=== PATIENT | female | born 1980 | race Caucasian/White ===

== ENCOUNTER 2024-05-29 15:25 | Emergency (ER) | payer OTHER, SELFPAY ==
[2024-05-29] VITALS (36 sets, daily range): BP systolic 93–124; BP diastolic 32–87; PULSE 72–98; RESP 14–18; TEMP 37.3; O2SAT 93–97
[2024-05-29] MEDS: Acetaminophen 500 MG TAB 1000 MG PO (16:09)
[2024-05-29] MEDS: Dexamethasone 10 MG/ML VIAL IVP (16:09)
[2024-05-29] MEDS: Diclofenac 1% Gel 100 GM TUBE TP (16:10)
[2024-05-29] MEDS: Cyclobenzaprine 10 MG TAB PO (16:10)
--- OUTSIDE RECORDS SUMMARY | 2024-05-29 16:19 | XMS_ITS | Clinical Summary ---
Author Organization [facility] Address [address] [place] [address] Care Team Providers Care Accountant Helper Name Role Phone Santosh Celis MD Primary Care Provider [phone] Allergies No known active allergies Medications No known medications Active Problems Problem Noted Date Diagnosed Date Joint pain, knee 10/20/2014 Immunizations Name Administration Dates Next Due INFLUENZA, SPLIT VIRUS, TRIVALENT, PF 03/06/2011 Family History Medical History Relation Name Comments No Known Problems Child No Known Problems Cousin No Known Problems Daughter No Known Problems Father No Known Problems Grandchild No Known Problems Maternal Grandfather Breast cancer Maternal Grandmother Breast cancer Mother invasive ducta l, sentinal 1/3 nodes +, ER+/MA+; BRCA negative Other Mother Family History of hypertension Breast cancer Mother's Sister No Known Problems Other No Known Problems Paternal Grandfather No Known Problems Paternal Grandmother No Known Problems Sister No Known Problems Son BRCA 1/2 Neg Hx Colon cancer Neg Hx Endometrial cancer Neg Hx Ovarian cancer Neg Hx Relation Name Status Comments Child Cousin Daughter Father Grandchild Maternal Grandfather Maternal Grandmother Mother Mother's Sister Other Paternal Grandfather Paternal Grandmother Sister Son Social History Tobacco Use Types Packs/Day Years Used Date Smoking Tobacco: Never Smokeless Tobacco: Never Comments:: Alcohol Use Standard Drinks/Week Comments Yes 0 (1 standard drink = 0.6 oz pur e alcohol) Comments No Sex and Gender Information Value Date Recorded Sex Assigned at Not on file Legal Sex Female 1:49 AM EDT Gender Identity Not on file Sexual Orientation Not on file 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 Not on file Last Filed Vital Signs Vital Sign Reading Time Taken Comments Blood Pressure 126/88 03/08/2019 8:44 AM EDT Pulse 98 12/10/2011 2:47 PM EDT Temperature - - Respiratory Rate - - Oxygen Saturation - - Inhaled Oxygen Concentration - - Weight 59.4 kg (131 lb) 03/08/2019 8:44 AM EDT Height 165.7 cm (5' 5.25) 03/08/2019 8:44 AM ED T Body Mass Index 21.63 03/08/2019 8:44 AM EDT Plan of Treatment Upcoming Encounters Date Type Department Care Team (Late st Contact Info) Description 07/13/2024 2:15 PM EST 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 [address] [place] [address] Frieda Jeff MD [address] [place] [phone] 03/09/2025 2:30 PM EDT Appointment [facility] Mammography [address] [place] [address] Health Maintenance Due Date Last Done Comments HIV Screening 1981 Hepatitis C Screening 1981 Varicella Vaccines (1 of 2 - 13+ 2-dose series) 1994 Hepatitis B Vaccines (1 of 3 - 19+ 3-dose series) 2000 Pap Smear 07/10/2019 07/10/2016, 08/2013, 04/14/2013, Additional history exists Cervical Cancer Screening 07/10/2021 HPV and Pap Smear 07/10/2021 07/10/2016, , 04/14/2013, Additional history exists Alcohol/Substance Use Screening 06/01/2023 Depression Screening and Follow-Up 06/01/2023 Social Drivers of Health Annual Screening 06/01/2023 COVID-19 Vaccine ( season) 2024 03/22/2022, 04/05/2021, 07/04/2020, Additional history exists Influenza Vaccine (#1) 2024 7, 04/17/2015, 03/06/2011, Additional history exists DTaP,Tdap,and Td Vaccines (4 - Td or Tdap) 03/30/2025 03/30/2015, 05/08/2009, 12/31/1999 Mammogram 03/07/2026 03/07/2024, 02/01, 02/22/2022 RSV Vaccine (60+ years old and patients) (1 - 1-dose 75+ series) 2056 Pneumococcal Vaccine: Pediatric (0-5 Years) and At-Risk Patients (6-64 Years) Aged Out No longer eligible based on patient's age to complete this topic Procedures * Due to [place] law, this organization might not be sharing negative HIV tests. Procedure Name Priority Date/Time Associated Diagnosis Comments TORIBIO BILATERAL SCREENING DIGITAL MAMMOGRAM WITH JASON Routine 03/07/2024 2:33 PM EDT Encounter for screening mammogram for malignant neoplasm of breast [facility] PAP W/HPV, MRNA E6/E7, REFLEX 16/18/45 Routine 07/10/2016 12:00 AM EST from Last 3 Months or Most Recently Relevant to Health Maintenance Results * Due to [place] law, this organization might not be sharing negative HIV tests. * TORIBIO Bilateral Screening Digital Mammogram With Jason (03/07/2024 2:33 PM EDT) Anatomical Region Laterality Modality Breast Bilateral Mammography Narrative 03/15/2024 11:08 AM EDT Exam Date: 03/07/24 [facility] MAMMOGRAPHY [address] [place] [address] [id number] EXAMINATION TORIBIO Bilateral Screening Digital Mammogram With Jason. INDICATION Crystal Karol Tomlin is a 43 y.o. female and is seen for: TORIBIO Bilateral Screening Digital Mammogram With Jason. CC and MLO views were obtained. FDA approved Transpara?? AI (artificial intelligence) software and R2 CAD were used as a concurrent reading aid in the interpretation of this study. COMPARISON Compared to: 02/28/2023 TORIBIO Bilateral Screening Digital Mammogram With Jason and 02/22/2022 TORIBIO Bilateral Screening Digital Mammogram With Jason Bilateral Breast Findings: The breasts are extremely dense, which lowers the sensitivity of mammography. No significant masses, calcifications or other abnormalities are seen. IMPRESSION BI-RADS?? ATLAS category (overall): 1 - Negative MANAGEMENT Routine Screening Mammogram in 1 Year is recommended for bilateral. ??The patient was entered into a reminder system with a subsequent mammography target date. The patient? s lifetime risk for breast cancer was calculated using Dmer-Amaliazick: 36.09%. which is high If the personal lifetime risk is more than 20%, according to ACS, NCCN and ACR guidelines, annual screening breast MRI recommended in addition to annual mammography, ideally staggered in 6 months intervals. Breast MRI is available at [facility] ([facility], [facility], and [facility]). To schedule, enter a breast MRI order into [facility] (MRI Breast Bilateral W WO contrast and 3DCAD), call [phone] or [phone], or fax [phone]. If this radiology report contains a blank impression section, it is an incomplete radiology report. ??Please contact the interpreting radiologist or applicable radiology division as soon as possible to obtain the completed interpretation. Angela Alcantara MD us Frieda Jeff MD IMG BI PROCEDURES Final Resu lt * [facility] Pap w/HPV, mRNA E6/E7, Reflex 16/18/45 (07/10/2016 12:00 AM EST) [facility] TIS, mRNA E6/E7 Juanita (See Below) [employer] Comment: TIS,mRNA E6/E7 JUANITA ?? CLINICAL INFORMATION: ? Routine exam ?? LMP: ? 06/18/16 ?? PREV. PAP: ? 2014- ?? PREV. BX: ? NONE GIVEN ?? SOURCE: ? Cervix, Endocervix ?? STATEMENT OF ADEQUACY: ? Satisfactory for evaluation. ? Endocervical/transformation zone component ? present. ?? INTERPRETATION/RESULT: ? Negative for intraepithelial lesion or malignancy. ?? COMMENT: ? This Pap test has been evaluated with computer ? assisted technology. ?? REFERENCE TEST CLERK: ? MAA, CT(ASCP) ? CT screening location: [facility] ? [address] ? [place], [place] ??[address] ?? HPV mRNA E6/E7: ? Not Detected ? This test was performed using the APTIMA HPV Assay ([employer].). ? . ? This assay detects E6/E7 viral messenger RNA (mRNA) from 14 ? high-risk HPV types (16,18,31,33,35,39,45,51,52,56,58,59,66,68). Report Comments: ?? Received Date: [id number] Performing Site: [facility] ?? bttn [facility] ?? [address] [place], [place] ??[address] ?? Director: LELSEE LAU 07/10/2016 12:0 0 AM EST 07/11/2016 10:21 PM EST Frieda Jeff MD LAB [facility]BULAT[facility] SANDHYA HERNANDEZ Final Result bttn [address], [place] [address], [place] [phone] from Last 3 Months or Most Recently Relevant to Health Maintenance Insurance [facility] Advance Directives Documents on File Type Date Recorded Patient Barrel Rifler Broach Expl anation Advance Directive 09/02/2011 12:00 AM Advan ce Care Directives Advance Directive 09/02/2011 12:00 AM Advan ce Care Directives Care Teams Accountant Helper Relationship Specialty Start Date End Date Santosh Celis MD PCP - General 12/18/16
--- OUTSIDE RECORDS SUMMARY | 2024-05-29 16:19 | XMS_ITS | Encounter Summary ---
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 [address] [place] [phone] Marlyn Aguirre CCMA Prior Authorization (ABUS) Social History Tobacco Use Types Packs/Day Years Used Date Smoking Tobacco: Never Smokeless Tobacco: Never Comments:: Alcohol Use Standard Drinks/Week Comments Yes 0 (1 standard drink = 0.6 oz pur e alcohol) Comments Unknown Sex and Gender Information Value Date Recorded Sex Assigned at Not on file Legal Sex Female 1:49 AM EDT Gender Identity Not on file Sexual Orientation Not on file 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 She stated no prior authorization is required. Goes towards deductible then covered 100% at the contracted rate. Copayment of $150.00 Reference #: [id number] Left message for patient to call back on 03/03/22 * Telephone Encounter - GAUTAM Andrade - 03/11/2022 10:57 AM EDT ----- Message from Frieda Jeff MD sent at 03/02/2022 4:02 PM EDT ----- Dense breasts by mammo--pls offer ABUS. Check insurance for coverage and let pt know. Book if she would like to pursue. Thank you. 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
--- OUTSIDE RECORDS SUMMARY | 2024-05-29 16:19 | XMS_ITS | Encounter Summary ---
Author Organization [facility] lin Address [address] [place] [address] Care Team Providers Care Dinkey Operator Slag Name Role Phone Unavailable Primary Care Provider Unavailabl e Reason for Visit * Reason Comments Mouth or throat complaint Encounter Details Date Type Department Care Team (Latest Contact Info) Description 09/08/2022 6:00 PM EDT Office Visit [id number] [place] [phone] Jane Cabrera NP [address] [place] [phone] Streptococcal sore throat (Primary Dx) Social History Tobacco Use Types Packs/Day Years Used Date Smoking Tobacco: Never Passive Smoke Exposure: Never Smokeless Tobacco: Never Tobacco Cessation:Counseling Given: Yes Comments No Sex and Gender Information Value Date Recorded Sex Assigned at Not on file Legal Sex Female 8:47 AM EDT Gender Identity Not on file Sexual Orientation Not on file documented as of this encounter Last Filed Vital Signs Vital Sign Reading Time Taken Comments Blood Pressure 106/68 09/08/2022 5:54 PM EDT Pulse 96 09/08/2022 5:54 PM EDT Temperature 36.9 ??C (98.4 ??F) 09/08/2022 5:54 PM ED T Respiratory Rate 14 09/08/2022 5:54 PM EDT Oxygen Saturation 100% 09/08/2022 5:54 PM EDT Inhaled Oxygen Concentration - - Weight - - Height - - Body Mass Index - - documented in this encounter Functional Status * Is the person deaf or does he/she have serious difficulty hearing? Answer Date of Assessment Author * Is this person blind or does he/she have serious difficulty seeing even when wearing glasses? Answer Date of Assessment Author * Does this person have serious difficulty walking or climbing stairs? Answer Date of Assessment Author * Does this person have difficulty dressing or bathing? Answer Date of Assessment Author * Because of a physical, mental, or emotional condition, does this person have difficulty doing errands alone such as visiting a doctor's office or shopping? Answer Date of Assessment Author documented as of this encounter Mental Status * Because of a physical, mental, or emotional condition, does this person have serious difficulty concentrating, remembering, or making decisions? Answer Entry Date Author documented in this encounter Patient Instructions * Patient Instructions* Jane Cabrera NP - 09/08/2022 6:00 PM EDT ACETAMINOPHEN Example Brand Names: Tylenol, Aspirin Free Anacin. Liquiprin, Panadol, Feverall, Tempra Uses: Relieve pain; reduce fever How to Take this Drug: ??? Do not use a household spoon. Measure liquid medication with the provided dose-measuring spoon,dropper or cup. ??? When used for pain, take it at the first sign of pain. Do not wait for pain to worsen. ??? This drug may be taken with food or on an empty stomach. ??? In order to decrease the risk of liver damage, avoid alcoholic beverages while taking acetaminophen. Safety Information on Dosing: ??? Dosing recommendations may vary by product. Always follow the instructions on the package for the correct dose. ??? The recommended maximum dose for an adult without liver problems is 3000 mg in a 24-hour period. ??? Do not give a child more than 5 of the recommended doses in a 24-hour period. ??? Do not take more than the recommended dose. o Acetaminophen is an ingredient in many pain relievers, fever reducers, and cold and sinus products. o Check the labels of all your medicines to avoid taking more than the recommended amount of acetaminophen per dose or per day. Side Effects: Rare. The most serious side effects are allergic reaction (rash, itching, swelling, severe dizziness, trouble breathing) and liver damage (yellowing of the skin or eyes, nausea, abdominal pain or discomfort, unusual bleeding or bruising, severe fatigue). Stop taking the medicine immediately, if you have any of these side effects. Call your primary careprovider. When to Call Your Primary Care Provider: ??? If you are taking this medicine for pain and the pain lasts more than 10 days (more than 5 daysin a child) ??? If you are taking this medicine for fever and fever lasts longer than 3 days. ??? Pain or fever gets worse while taking this medicine. ??? You have new symptoms. ??? You have signs or symptoms of a serious side effect. [facility] recommends that you keep this and all medications out of reach of children. Carefully read all package information to ensure the safest and most effective use of this medicine. IBUPROFEN Example Brand Names: Advil, Motrin, Nuprin, Pediacare Fever Uses: Relieve pain; reduce fever How to Take this Drug: ??? Measure liquid medication with the provided dose-measuring spoon, dropper or cup. Do not use a household spoon. ??? When used for pain, take it at the first sign of pain. Do not wait for pain to get worse. ??? Take this medicine with food or milk to avoid stomach upset. ??? Do not lie down for 30 minutes after taking the medicine to avoid heartburn. ??? Avoid the use of alcohol or tobacco to reduce the risk for stomach bleeding. ??? Ibuprofen can make you more sensitive to the sun and result in sunburn. Avoid staying in the sun for a long time, tanning booths or sunlamps. Wear sunscreen and protective clothing when outside. Safety Information on Dosing: ??? Dosing recommendations may vary by product. Always follow the instructions on the package for the correct dose. ??? ADULTS 18 years and older: The recommended maximum total dose in 24 hours is no more than 2400mg a day. ??? CHILDREN ages 12 to 17: Do not give more than 4 of the recommended doses in a 24-hour period. The recommended maximum dose in 24 hours is no more than 1200 mg a day. ??? Do not take more than is recommended dose. o Ibuprofen is in many pain relievers, fever reducers, menstrual symptom medication, cold and sinusproducts. o Check the labels of all the medicines. The amount of ibuprofen in these products must be includedwhen looking at the maximum dose per day. ??? Avoid aspirin, aspirin-containing products, other pain medicines, garlic, ginseng, ginkgo, vitamin E to reduce risk of bleeding. ??? If you take low-dose aspirin for heart protection or stroke prevention, take ibuprofen 30 minutes to 2 hrs after taking the aspirin. ??? Avoid driving and other activities that require you to be alert until you see if this medicine makes you dizzy or drowsy. Side Effects: ??? Common side effects: stomach upset, nausea, diarrhea, constipation, heartburn, rash, sun sensitivity, water retention ??? Serious side effects: allergic reaction (rash, itching, swelling, severe dizziness, trouble breathing), liver damage (yellowing of the skin or eyes, dark-colored urine, nausea, abdominal pain or discomfort, unusual bleeding or bruising, severe fatigue), easy bleeding (bruising, pinpoint red spots on the skin, black tarry stools, blood in the urine, unusual tiredness or weakness), severe stomach or intestinal bleeding (bloody or black tarry stools, vomiting blood, vomit contains dark specks that look like coffee grounds), and decreased hearing or ringing in the ears ??? People who take ibuprofen may have a higher risk of having a heart attack or stroke than peoplewho do not take these medications. This risk may be higher for people who take this medication for long periods of time. Call 911 and get emergency medical help right away if you experience chest pain, shortness of breath, weakness in one part or side of the body, or slurred speech. ??? Stop taking the medicine immediately, if you have any of these side effects. Call your primary care provider. When to Follow Up with Your Primary Care Provider: ??? If you are taking this medicine for pain and the pain gets worse or pain lasts more than 10 days (more than 5 days in a child) ??? If you are taking this medicine for fever and fever lasts longer than 3 days or gets worse. ??? You develop new symptoms or have signs or symptoms of a serious side effect. [facility] recommends that you keep this and all medications out of reach of children. Carefully read all package information to ensure the safest and most effective use of this medicine. NOTE: This sheet is a summary. It may not cover all possible information. If you have questions about this medicine, talk to your doctor, pharmacist, or health care provider. Seek immediate emergency medical attention if you experience severe or worsening abdominal pain, difficulty swallowing, stiff neck, shortness of breath, coughing or vomiting up blood, chest pain, increased fever, unexplained weight loss, or blood in stool. Follow up with Primary Care Provider immediately if symptoms worsen or mouth pain interferes with the ability to eat or drink. Follow up with Primary Care Provider if symptoms not improved in 3-4 days or sore throat persists after completion of antibiotic. Strep Throat Seek Immediate Medical Attention If You: ??? If your throat is so swollen you are having difficulty breathing or cannot swallow fluids ??? Get a very bad headache ??? Your neck hurts or it feels stiff Strep Throat Facts What is Strep Throat? Strep throat is an infection of the throat caused by a bacterium called streptococci. Strep throat spreads from person to person through coughing, sneezing or close contact. Prevention: Most people exposed to strep throat do not become sick unless they have had close contact with an infected person. To reduce the risk of infection: ??? Wash your hands frequently and thoroughly, especially before eating. ??? Avoid sharing cups, eating utensils and toothbrushes ??? Limit close contact with people who have symptoms of strep throat Treatment: Antibiotics are used to kill strep bacteria. This helps prevent spreading the bacteria to others and it also helps to prevent rare, but serious complications such as rheumatic fever or kidney inflammation. ??? Be sure to finish all antibiotic medication even if you feel better. ??? Rinse your mouth with salt water mixture 3-4 times a day (1/2 teaspoon of salt in 1 cup warm water). This can help to reduce the swelling that causes your throat pain ??? Rest ??? Don???t smoke ??? Stay home from school or work until you have been taking antibiotics for 24 hours ??? Drink enough water to keep your pee (urine) clear or pale yellow and eat soothing foods to avoid throat irritation ??? Change your toothbrush after being on antibiotics for 24 hours. Return if: ??? Your neck keeps getting bigger or red and tender ??? You get a rash, cough or earache ??? You cough up thick liquid that is green, yellow-brown or bloody ??? You have pain that does not get better with medicine ??? Your problems get worse instead of better ??? You have a continued fever ??? Your joints are red or they hurt documented in this encounter Progress Notes * Jane Cabrera NP - 09/08/2022 6:00 PM EDT Subjective: Patient ID: Fátima Tomlin is a 41 y.o. female. HPI Present presents with a sore throat that began on 09/07/2022. Mouth or throat complaint Patient presents with: sore throat Location: Posterior mouth Quality: Aching and sore Onset Quality: Gradual Severity: Moderate (6/10 throat pain) Duration of current symptoms: 1 day Timing: Gradually worsening Chronicity: New Associated symptoms: sore throat Associated symptoms: no abdominal pain, no chest pain, no chills, no cough, no fatigue, no facial swelling, no trouble swallowing, no drooling, no muffled voice, no night sweats, no shortness of breath, no neck stiffness, no headache, no difficulty sticking tongue out, no congestion, no decreased appetite, no dental sensitivity to temperature, no ear pain, no fever, no neck pain, no rash, no rhinorrhea and no swollen glands Review of Systems Constitutional: Negative. Negative for chills, decreased appetite, fatigue, fever and night sweats. HENT: Positive for sore throat. Negative for congestion, drooling, ear pain, facial swelling, rhinorrhea, trouble swallowing and voice change. Eyes: Negative. Respiratory: Negative. Negative for cough and shortness of breath. Cardiovascular: Negative. Negative for chest pain. Gastrointestinal: Negative. Negative for abdominal pain. Endocrine: Negative. Genitourinary: Negative. Musculoskeletal: Negative. Negative for neck pain and neck stiffness. Skin: Negative. Negative for rash. Allergic/Immunologic: Negative. Neurological: Negative. Hematological: Negative. Psychiatric/Behavioral: Negative. All other systems reviewed and are negative. Social History Tobacco Use Smoking Status Never ??? Passive exposure: Never Smokeless Tobacco Never History reviewed. No pertinent past medical history. Past Surgical History: Procedure Laterality Date ??? ADENOIDECTOMY ??? KNEE SURGERY Left ??? SHOULDER SURGERY Left No family history on file. Objective: Physical Exam Vitals reviewed. Constitutional: General: She is not in acute distress. Appearance: Normal appearance. She is well-developed. Interventions: She is not intubated. HENT: Head: Normocephalic. Right Ear: Hearing, tympanic membrane, ear canal and external ear normal. Left Ear: Hearing, tympanic membrane, ear canal and external ear normal. Nose: Nose normal. No nasal deformity, septal deviation, signs of injury, laceration, nasal tenderness, mucosal edema, congestion or rhinorrhea. Right Nostril: No foreign body, epistaxis, septal hematoma or occlusion. Left Nostril: No foreign body, epistaxis, septal hematoma or occlusion. Right Turbinates: Not enlarged, swollen or pale. Left Turbinates: Not enlarged, swollen or pale. Right Sinus: No maxillary sinus tenderness or frontal sinus tenderness. Left Sinus: No maxillary sinus tenderness or frontal sinus tenderness. Mouth/Throat: Lips: [place]. Mouth: Mucous membranes are moist. Pharynx: Uvula midline. Oropharyngeal exudate and posterior oropharyngeal erythema present. No pharyngeal swelling or uvula swelling. Tonsils: Tonsillar exudate present. No tonsillar abscesses. 2+ on the right. 2+ on the left. Eyes: General: Right eye: No discharge. Left eye: No discharge. Conjunctiva/sclera: Conjunctivae normal. Cardiovascular: Rate and Rhythm: Normal rate and regular rhythm. No extrasystoles are present. Chest Wall: PMI is not displaced. No thrill. Pulses: No decreased pulses. Heart sounds: Normal heart sounds. Heart sounds not distant. No murmur heard. No systolic murmur is present. No diastolic murmur is present. No friction rub. No gallop. No S3 or S4 sounds. Pulmonary: Effort: Pulmonary effort is normal. No tachypnea, bradypnea, accessory muscle usage, prolonged expiration, respiratory distress or retractions. She is not intubated. Breath sounds: Normal breath sounds and air entry. No stridor, decreased air movement or transmitted upper airway sounds. No decreased breath sounds, wheezing, rhonchi or rales. Musculoskeletal: Cervical back: Normal range of motion and neck supple. Right lower leg: No edema. Left lower leg: No edema. Lymphadenopathy: Cervical: Cervical adenopathy present. Neurological: General: No focal deficit present. Mental Status: She is alert and oriented to person, place, and time. Mental status is at baseline. Psychiatric: Behavior: Behavior normal. Thought Content: Thought content normal. Judgment: Judgment normal. Assessment/Plan: Based off of the patient's presentation, she was treated for strep throat today, despite a negativestrep test. Based on today's visit:history, physical exam and all relevant testing completed in clinic today patient's visit diagnosis is/includes 1. Streptococcal sore throat Patient does not have a history of chronic conditions identified today Treatment plan includes: Orders Placed: Orders Placed This Encounter Procedures ??? Strep Molecular POCT Medications ordered this visit Signed Prescriptions Disp Refills ??? acetaminophen 325 mg cap 30 capsule 0 Sig: Take 1-2 capsules by mouth 4 (four) times a day for 7 days Max 12 capsules in 24 hours. ??? ibuprofen (ADVIL) 200 MG tablet 30 tablet 0 Sig: Take 1 tablet (200 mg total) by mouth every 6 (six) hours as needed for moderate pain or feverfor up to 7 days ??? penicillin v potassium (VEETID) 500 MG tablet 20 tablet 0 Sig: Take 1 tablet (500 mg total) by mouth 2 (two) times a day for 10 days Current medication list and any new medications prescribed or recommended today were reviewed with the patient and specific instructions were provided Yes Provider Recommendations Recommended drinking warm tea with honey and gargling with warm salt water. If there is no improvement in your symptoms, please follow-up with your primary care physician. Follow up care instructions were provided to the Patient. All questions answered. Patient verbalized understanding of plan of care today. HPI Section HPI provided by Patient I am having Crystal Tomlin start on acetaminophen, ibuprofen, and penicillin v potassium. documented in this encounter Plan of Treatment Not on file documented as of this encounter Procedures Procedure Name Priority Date/Time Associated Diagnosis Comments STREP MOLECULAR POCT Routine 09/08/2022 6:01 PM EDT Streptococcal sore throat documented in this encounter Results * Strep Molecular POCT (09/08/2022 6:01 PM EDT) Pathologist [facility] POC MOLECULAR STREP A Negative Negative, Invalid, Not Tested, ERRONEOUS JESUS ACEVEDO [id number] INTERNAL CONTROLS VALID Yes--Test working appropriately JESUS ACEVEDO [id number] Expiration Date 04/18/2024 JESUS ACEVEDO [id number] Lot Number [id number] JESUS ACEVEDO [id number] TEST BRAND NAME_ STREP MOLECULAR ID Now Strep JESUS ACEVEDO [id number] Throat 09/08/2022 6:01 PM EDT us Jane Cabrera NP POINT OF CARE TEST ORDERABLES Final Result JESUS ACEVEDO [id number] [address] [place], [place] [address] [address], documented in this encounter Visit Diagnoses Diagnosis Streptococcal sore throat- Primary documented in this encounter
--- OUTSIDE RECORDS SUMMARY | 2024-05-29 16:19 | XMS_ITS | Clinical Summary ---
Author Organization [facility] Address [address] [place] [address] Care Team Providers Care Bus And Trolley Dispatcher Name Role Phone Unavailable Primary Care Provider Unavailabl e Allergies No known active allergies Medications No known medications Social History Tobacco Use Types Packs/Day Years Used Date Smoking Tobacco: Never Passive Smoke Exposure: Never Smokeless Tobacco: Never Tobacco Cessation:Counseling Given: Yes Comments No Sex and Gender Information Value Date Recorded Sex Assigned at Not on file Legal Sex Female 8:47 AM EDT Gender Identity Not on file Sexual Orientation Not on file Last Filed Vital Signs [...] - - Body Mass Index - - Plan of Treatment Health Maintenance Due Date Last Done Comments Depression: Screening Annually using PHQ-2/9 in Adults 18 yrs or above (or HM Modifier)([facility]) 12/16/1999 Hepatitis C Virus Infection in Adolescents and Adults: Screening (or Modifier) ([facility]) 12/16/1999 SDOH Screening Reminder: Annually for all adults ([facility]) 12/16/1999 Lipid Screening: Once for Women aged 20 to 45 yrs ([facility]) 2001 Cervical Cancer Screenin-65 yrs of age (or Modifier) 2002 Cervical Cancer Screening: Pap every 3 yrs pts age 21-65 2002 Cervical Cancer: Pap Screening with Modifier timing ([facility]) 2002 Cervical Cancer: hrHPV alone or with cotesting Pap for Pts 30-65yrs screening every 5yrs ([facility]) 2002 DTaP/Tdap/Td Vaccines ([facility]) (3 - Td or Tdap) 05/08/2019 05/08/2009, 12/31/1999 Tobacco Smoking Cessation: i n Adults excluding Women: Behavioral and Pharmacotherapy Interventions ([facility]) 09/09/2023 09/08/2022 Flu Vaccination: Yearly for ages 18mos through 64 years (or Modifier)([facility]) 12/31/2023 COVID-19 Vaccine Screening: Initial Series and Booster Status ([facility]) ( - 2023- season) 2024 03/22/2022, 04/05/2021, 07/04/2020, Additional history exists Zoster/Shingles Vaccine Series Screening: Adults aged 18+ yrs (or HM Modifiers)([facility]) (1 of 2) 12/16/2031 Pneumococcal Vaccination Screening: Pts 0-19 & 19-64 yrs of age ([facility]) Aged Out No longer eligible based on patient's age to complete this topic Medical Devices Not on file Insurance [facility]
--- OUTSIDE RECORDS SUMMARY | 2024-05-29 16:19 | XMS_ITS | Encounter Summary ---
Author Organization [facility] Address [address] [place] [address] Care Team Providers Care Casing Operator Name Role Phone Santosh Celis MD Primary Care Provider [phone] TomerFrieda Unavailable Encounter Details Date Type Department Care Team (Late st Contact Info) Description 04/09/[phone] [place] [address], Unknown Provider Social History Tobacco Use Types Packs/Day Years Used Date Smoking Tobacco: Never Smokeless Tobacco: Never Alcohol Use Standard Drinks/Week Comments No 0 (1 standard drink = 0.6 oz pur e alcohol) Comments No Sex and Gender Information Value Date Recorded Sex Assigned at Not on file Legal Sex Female 9:02 PM EST Gender Identity Not on file Sexual Orientation Not on file documented as of this encounter Miscellaneous Notes * Telephone Encounter - [facility], Unknown Provider - 04/09/2022 8:53 AM EST Telephone Encounter by GAUTAM Andrade at 04/09/2022 8:52 AM Author: GAUTAM Andrade Service: -- Author Type: Manager Universal Filed: 04/09/2022 8:52 AM Encounter Date: 03/17/2022 Status: Signed Sales Marketing Coordinator: GAUTAM Andrade (Manager Universal) patient stated she does not want to have ABUS now documented in this encounter Plan of Treatment Not on file documented as of this encounter Visit Diagnoses Not on filedocumented in this encounter Care Teams Casing Operator Relationship Specialty Start Date End Date Santosh Celis MD [address] [place] [address] PCP - General 05/19/14 Frieda Jeff [address] [place] [address] product safety and standards engineer 08/20/17 documented as of this encounter
--- OUTSIDE RECORDS SUMMARY | 2024-05-29 16:19 | XMS_ITS | Encounter Summary ---
Author Organization [facility] Address [address] [place] [address] Care Team Providers Care Pumping Plant Operator Name Role Phone Santosh Celis MD Primary Care Provider Reason for Visit * Reason Onset Date Comments Prior Authorization 03/16/2023 ABUS Encounter Details Date Type Department Care Team (Late st Contact Info) Description 03/16/2023 Telephone [facility] head housekeeper [address] [place] [address] Marlyn Aguirre CCMA Prior Authorization (ABUS) Social [...] * Telephone Encounter - GAUTAM Andrade - 03/16/2023 4:02 PM EDT ABUS Per insurance company. No prior authorization is required. Goes towards patient deductible. Patient has decline ABUS. * Telephone Encounter - GAUTAM Andrade - 03/16/2023 4:02 PM EDT ----- Message from Frieda Jeff MD sent at 03/09/2023 5:17 PM EDT ----- Please contact pt to inform her that her mammogram has been read as benign and that she has dense breasts. As an additional imaging modality and screening tool, we would like to offer her ABUS (Automated Breast Ultrasound) which can improve breast cancer detection by 35.7% over mammography alone. Please contact pt's insurance company and check to see if they will cover the cost of the exam or if she will have an [id number]-[id number] cost. Please reference the CPT code 20697. Alternatively, the patientmay call herself to check. If she elects to proceed, please place order. Thank you. documented in this encounter Plan of Treatment Upcoming Encounters Date Type Department Care Team (Late st Contact Info) Description 07/13/2024 2:15 PM EST Office Visit [facility] head housekeeper [address] [place] [address] Frieda Jeff MD [address] [place] [address] 03/09/2025 2:30 PM EDT Appointment [facility] Mammography [address] [place] [address] documented as of this encounter Visit Diagnoses Not on filedocumented in this encounter Care Teams Pumping Plant Operator Relationship Specialty Start Date End Date Santosh Celis MD PCP - General 12/18/16 documented as of this encounter
--- OUTSIDE RECORDS SUMMARY | 2024-05-29 16:19 | XMS_ITS | Referral Summary ---
Author Organization [facility] Address [address] [place] [address] Care Team Providers Care Stucco Laborer Name Role Phone Santosh Celis MD Primary Care Provider [phone] Allergies No known active allergies Medications No known medications Active Problems Problem Noted Date Diagnosed Date Joint pain, knee 10/20/2014 Immunizations Name Administration Dates Next Due INFLUENZA, SPLIT VIRUS, TRIVALENT, PF 03/06/2011 Social History Tobacco Use Types Packs/Day Years [...] Description 07/13/2024 2:15 PM EST Office Visit [facility] inpatient care manager rn [address] [place] [address] Frieda Jeff MD [address] [place] [address] 03/09/2025 2:30 PM EDT Appointment [facility] Mammography [address] [place] [address] Procedures * Due to [place] law, this organization might not be sharing [...] to Health Maintenance Results * Due to [place] law, this organization might not be sharing negative HIV tests. * [facility] Bilateral Screening Digital Mammogram With Jason (03/07/2024 2:33 PM EDT) Anatomical Region Laterality Modality Breast Bilateral Mammography Narrative 03/15/2024 11:08 AM EDT Exam Date: 03/07/24 [facility] MAMMOGRAPHY [address] [place] [address] EXAMINATION TORIBIO Bilateral Screening Digital Mammogram With Jason. INDICATION Fátima Tomlin is a 43 y.o. female and [...] risk for breast cancer was calculated using Tyrer-Amaliazick: 36.09%. which is high If the personal lifetime risk is more than 20%, according to ACS, NCCN and ACR guidelines, annual screening breast MRI recommended in addition to annual mammography, ideally staggered in 6 months intervals. Breast MRI is available at [facility] ([facility], and [facility]). To schedule, enter a breast MRI order into [facility] [employer] (MRI Breast Bilateral W WO contrast and 3DCAD), call [phone] or [phone], or fax [phone]. If this radiology report contains a blank impression section, it is an incomplete radiology report. ??Please contact the interpreting radiologist or applicable radiology division as soon as possible to obtain the completed interpretation. Angela Alcantara MD us Frieda Jeff MD IMG BI PROCEDURES Final Resu lt * [facility] Pap w/HPV, mRNA E6/E7, Reflex 16/18/45 (07/10/2016 12:00 AM EST) Pathologist [facility] TIS, mRNA E6/E7 Juanita (See Below) [facility] Comment: TIS,mRNA E6/E7 JUANITA ?? CLINICAL INFORMATION: [...] evaluated with computer ? assisted technology. ?? EQUIPMENT INSPECTOR: ? MAA, CT(ASCP) ? CT screening location: [facility] ? [address] [facility] ? [place], [place] ??[address] ?? HPV mRNA E6/E7: ? Not Detected ? This test was performed using the APTIMA HPV Assay ([employer] ? . ? This assay detects E6/E7 viral messenger RNA (mRNA) from 14 ? high-risk HPV types (16,18,31,33,35,39,45,51,52,56,58,59,66,68). Report Comments: ?? Received Date: [id number] Performing Site: [facility] ?? [facility] ?? [address], [place] ??[address] ?? Director: LESLEE LAU 07/10/2016 12:0 0 AM EST 07/11/2016 10:21 PM EST us Frieda Jeff MD LAB [facility] AMBULATORY SANDHYA HERNANDEZ Final Result [employer] [address] Floor, [place] [address], from Last 3 Months or Most Recently Relevant to Health Maintenance Insurance [facility] [place] [id number] Advance Directives Documents on File Type Date Recorded Patient Pocketed Spring Machine Operator Expl anation Advance Directive 09/02/2011 12:00 AM Advan ce Care Directives Advance Directive 09/02/2011 12:00 AM Advan ce Care Directives Care Teams Stucco Laborer Relationship Specialty Start Date End Date Santosh Celis MD PCP - General 12/18/16
--- OUTSIDE RECORDS SUMMARY | 2024-05-29 16:19 | XMS_ITS | Encounter Summary ---
Author Organization [facility] Address [address] [place] [address] Care Team Providers Care Presser And Shaper Knitted Goods Name Role Phone Santosh Celis MD Primary Care Provider TomerFrieda Unavailable Encounter Details Date Type Department Care Team (Late st Contact Info) Description 04/04/[id number] [place] [address], Unknown Provider Social History Tobacco Use Types [...] encounter Miscellaneous Notes * Telephone Encounter - [facility], Unknown Provider - 04/04/2022 9:41 AM EDT Telephone Encounter by GAUTAM Andrade at 04/04/2022 9:41 AM Author: GAUTAM Andrade Service: -- Author Type: Electrician Underground Filed: 04/04/2022 9:41 AM Encounter Date: 03/17/2022 Status: Signed Microsoft Developer: GAUTAM Andrade (Electrician Underground) Left message for patient to call back documented in this encounter Plan of Treatment Not on file documented as of this encounter Visit Diagnoses Not on filedocumented in this encounter Care Teams Presser And Shaper Knitted Goods Relationship Specialty Start Date End Date Santosh Celis MD [address] [place] [address] PCP - General 05/19/14 Frieda Jeff [address] [place] [address] band instrument maker 08/20/17 documented as of this encounter
--- OUTSIDE RECORDS SUMMARY | 2024-05-29 16:19 | XMS_ITS | Encounter Summary ---
Author Organization [facility] Address [address] [place] [address] Care Team Providers Care Forgeman Helper Name Role Phone Santosh Celis MD Primary Care Provider [phone] Encounter Details Date Type Department Care Team (Late st Contact Info) Description 08/06/2017 Abstract [facility] Historical Conversion [address] [place] [address] Provider, Historical Conversion [place] Social History Tobacco Use Types Packs/Day Years Used Date Smoking Tobacco: Never Comments:: Comments Unknown Sex and Gender Information Value Date Recorded Sex Assigned at Not on file Legal Sex Female 1:49 AM EDT Gender Identity Not on file Sexual Orientation Not on file documented as of this encounter Plan of Treatment Upcoming Encounters Date Type Department Care Team (Late st Contact Info) Description 07/13/2024 2:15 PM EST Office Visit [facility] clinical informatics strategist [address] [place] [address] Frieda Jeff MD [address] [place] [address] 03/09/2025 2:30 PM EDT Appointment [facility] Mammography [address] [place] [address] documented as of this encounter Visit Diagnoses Not on filedocumented in this encounter Care Teams Forgeman Helper Relationship Specialty Start Date End Date Santosh Celis MD PCP - General 12/18/16 documented as of this encounter
--- OUTSIDE RECORDS SUMMARY | 2024-05-29 16:19 | XMS_ITS | Encounter Summary ---
Author Organization [facility] Address [address] [place] [address] Care Team Providers Care Market Investigator Name Role Phone Santosh Celis MD Primary Care Provider [phone] Frieda Jeff Unavailable Encounter Details Date Type Department Care Team (Late st Contact Info) Description 03/16/[id number] [place] [address], Unknown Provider Social History Tobacco Use Types Packs/Day Years Used Date Smoking Tobacco: Never Smokeless Tobacco: Never Alcohol Use Standard Drinks/Week Comments No 0 (1 standard drink = 0.6 oz pur e alcohol) Intimate Partner Violence Answer Date R ecorded Fear of Current or Ex-Partner Not on file Emotionally Abused Not on file 01/21/2023 Physically Abused Not on file 01/21/2023 Sexually Abused Not on file 01/21/2023 Feel Safe at Home Not on file 01/21/2023 Comments No Sex and Gender Information Value Date Recorded Sex Assigned at Not on file Legal Sex Female 9:02 PM EST Gender Identity Not on file Sexual Orientation Not on file documented as of this encounter Miscellaneous Notes * Telephone Encounter - [facility], Unknown Provider - 03/16/2023 4:05 PM EDT Telephone Encounter by GAUTAM Andrade at 03/16/2023 4:02 PM Author: GAUTAM Andrade Service: -- Author Type: Web Marketing Coordinator Filed: 03/16/2023 4:04 PM Encounter Date: 03/16/2023 Status: Signed Driver Utility Worker: GAUTAM Andrade (Web Marketing Coordinator) ABUS Per insurance company. No prior authorization is required. Goes towards patient deductible. Patient has decline ABUS. * Telephone Encounter - [facility], Unknown Provider - 03/16/2023 4:02 PM EDT Telephone Encounter by GAUTAM Andrade at 03/16/2023 4:02 PM Author: GAUTAM Andrade Service: -- Author Type: Web Marketing Coordinator Filed: 03/16/2023 4:02 PM Encounter Date: 03/16/2023 Status: Signed Driver Utility Worker: GAUTAM Andrade (Web Marketing Coordinator) ----- Message from Frieda Jeff MD sent [...] exam or if she will have an khx-tj-olreom cost. Please reference the CPT code 81457. Alternatively, the patientmay call herself to check. If she elects to proceed, please place order. Thank you. documented in this encounter Plan of Treatment Not on file documented as of this encounter Visit Diagnoses Not on filedocumented in this encounter Care Teams Market Investigator Relationship Specialty Start Date End Date Santosh Celis MD [address] [place] [address] PCP - General 05/19/14 Frieda Jeff [address] [place] [address] global marketing manager 08/20/17 documented as of this encounter
--- OUTSIDE RECORDS SUMMARY | 2024-05-29 16:19 | XMS_ITS | Encounter Summary ---
Author Organization [facility] Address [address] [place] [address] Care Team Providers Care Environmental Engineering Manager Name Role Phone Unavailable Primary Care Provider Unavailabl e Encounter Details Date Type Department Care Team (Latest Contact Info) Description 12/16/2006 6:36 PM EDT - 12/19/2006 11:30 AM EDT Hospital Encounter [facility] 4 Delivery Unit [address] [place] [address] Frieda Jeff MD [address] [place] [address] Third-degree perineal laceration during delivery, delivered Social History Tobacco Use Types Packs/Day Years Used Date Smoking Tobacco: Never Assessed Comments Unknown Sex and Gender Information Value Date Recorded Sex Assigned at Not on file Legal Sex Female 1:49 AM EDT Gender Identity Not on file Sexual Orientation Not on file documented as of this encounter Plan of Treatment Upcoming Encounters Date Type Department Care Team (Late st Contact Info) Description 07/13/2024 2:15 PM EST Office Visit [facility] equity structurer [address] [place] [address] Frieda Jeff MD [address] [place] [address] 03/09/2025 2:30 PM EDT Appointment [facility] Mammography [address] [place] [address] documented as of this encounter Procedures * Due to [facility] law, this organization might not be sharing negative HIV tests. Procedure Name Priority Date/Time Associated Diagnosis Comments HEMATOCRIT Routine 12/18/2006 7:00 AM EDT documented in this encounter Results * Due to [place] [employer] law, this organization might not be sharing negative HIV tests. * (ABNORMAL) Hematocrit (12/18/2006 7:00 AM EDT) Hct 22.3(L) 37.0 - 47.0 % CONVERSION [facility] Comment:CHECKED 12/18/2006 7:00 AM EDT 12/18/2006 7:12 AM EDT us Frieda Jeff MD LAB BLOOD ORDERABLES Final R esult CONVERSION [facility] documented in this encounter Visit Diagnoses Diagnosis Third-degree perineal laceration during delivery, delivered Third-degree perineal laceration, with delivery documented in this encounter
--- OUTSIDE RECORDS SUMMARY | 2024-05-29 16:19 | XMS_ITS | Encounter Summary ---
Author Organization [facility] Address [address] [place] [address] Care Team Providers Care Peeled Potato Inspector Name Role Phone Santosh Celis MD Primary Care Provider [phone] Reason for Visit * Reason Onset Date Comments Prior Authorization 03/17/2022 ABUS Encounter Details Date Type Department Care Team (Late st Contact Info) Description 03/17/2022 Telephone [facility] airset caster [address] [place] [address] Marlyn Aguirre CCMA Prior Authorization (ABUS) Social [...] * Telephone Encounter - GAUTAM Andrade - 04/09/2022 8:52 AM EST patient stated she does not want to have ABUS now * Telephone Encounter - GAUTAM Andrade - 04/04/2022 9:41 AM EDT Left message for patient to call back * Telephone Encounter - GAUTAM Andrade - 03/17/2022 1:34 PM EDT ABUS Called [facility] [phone] spoke to Cindi. No prior authorization is required. Covered 100% at the contracted rate. Reference #: [id number] Called [facility] [phone] spoke to Sue. Patient is booked for 03-24-22 at 2:[address] [place] [address]. Left message for patient to call back. documented in this encounter Plan of Treatment Upcoming Encounters Date Type Department Care Team (Late st Contact Info) Description 07/13/2024 2:15 PM EST Office Visit [facility] airset caster [address] [place] [address] Frieda Jeff MD [address] [place] [address] 03/09/2025 2:30 PM EDT Appointment [facility] Mammography [address] [place] [address] documented as of this encounter Visit Diagnoses Not on filedocumented in this encounter Care Teams Peeled Potato Inspector Relationship Specialty Start Date End Date Santosh Celis MD PCP - General 12/18/16 documented as of this encounter
--- OUTSIDE RECORDS SUMMARY | 2024-05-29 16:19 | XMS_ITS | Encounter Summary ---
Author Organization [facility] Address [address] [place] [address] Care Team Providers Care Director Supply Name Role Phone Santosh Celis MD Primary Care Provider [phone] Frieda Jeff Unavailable Encounter Details Date Type Department Care Team (Late st Contact Info) Description 03/07/2024 Minor Procedure/Test [address] [address] [facility], Unknown Provider Social History Tobacco Use Types [...] as of this encounter Plan of Treatment Not on file documented as of this encounter Procedures * Due to [place] [employer] law, this organization might not be sharing negative HIV tests. Procedure Name Priority Date/Time Associated Diagnosis Comments TORIBIO BILATERAL SCREENING DIGITAL MAMMOGRAM WITH JASON 03/15/2024 11:07 AM EDT documented in this encounter Results * Due to [place] [employer] law, this organization might not be sharing negative HIV tests. * TORIBIO BILATERAL SCREENING DIGITAL MAMMOGRAM WITH JASON (03/15/2024 11:07 AM EDT) Anatomical Region Laterality Modality Other 03/15/2024 11:0 7 AM EDT Narrative 03/15/2024 11:07 AM EDT Exam Date: 03/07/[address] [address] EXAMINATION TORIBIO Bilateral Screening Digital Mammogram With Jason. INDICATION Fátima Tomlin is a 43 y.o. female and is seen for: TORIBIO Bilateral Screening Digital Mammogram With Jason. CC and MLO views were obtained. FDA approved Transpara ??AI (artificial intelligence) software and R2 CAD were used as a concurrent reading aid in the interpretation of this study. COMPARISON Compared to: 02/28/2023 [facility] Bilateral Screening Digital Mammogram With Jason and 02/22/2022 TORIBIO Bilateral Screening Digital Mammogram With Jason Bilateral Breast Findings: The breasts are extremely dense, which lowers the sensitivity of mammography. No significant masses, calcifications or other abnormalities are seen. IMPRESSION BI-RADS ??ATLAS category (overall): 1 - Negative MANAGEMENT Routine Screening Mammogram in 1 Year is recommended for bilateral. ??The patient was entered into a reminder system with a subsequent mammography target date. The patient?s lifetime risk for breast cancer was calculated using Tyrer-Cuzick: 36.09%. which is high If the personal lifetime risk is more than 20%, according to ACS, NCCN and ACR guidelines, annual screening breast MRI recommended in addition to annual mammography, ideally staggered in 6 months intervals. Breast MRI is available at [facility] ([facility], and [facility]). To schedule, enter a breast MRI order into [facility] Epic (MRI Breast Bilateral W WO contrast and 3DCAD), call [phone] or [phone], or fax [phone]. If this radiology report contains a blank impression section, it is an incomplete radiology report. ??Please contact the interpreting radiologist or applicable radiology division as soon as possible to obtain the completed interpretation. Angela Quinton, MD 10.23 Procedure Note [facility], Unknown Provider - 03/15/2024 Exam Date: 03/07/24 [facility] MAMMOGRAPHY [address] [place] [address] EXAMINATION TORIBIO Bilateral Screening Digital Mammogram With Jason. INDICATION Fátima Tomlin is a 43 y.o. female and is seen for: TORIBIO Bilateral Screening Digital Mammogram With Jason. CC and MLO views were obtained. FDA approved EmergenSee AI ([employer]) software and R2 CAD were used as a concurrent reading aid inthe interpretation of this study. COMPARISON Compared to: 02/28/2023 [facility] Bilateral Screening Digital Mammogram WithTomo and 02/22/2022 [facility] Bilateral Screening Digital Mammogram With Jason Bilateral Breast Findings: The breasts are extremely dense, which lowers the sensitivity ofmammography. No significant masses, calcifications or other abnormalitiesare seen. IMPRESSION BI-RADS ATLAS category (overall): 1 - Negative MANAGEMENT Routine Screening Mammogram in 1 Year is recommended for bilateral. Thepatient was entered into a reminder system with a subsequent mammographytarget date. The patient?s lifetime risk for breast cancer was calculated usingYoni: 36.09%. which is high If the personal lifetime risk is more than 20%, according to ACS, NCCN andACR guidelines, annual screening breast MRI recommended in addition toannual mammography, ideally staggered in 6 months intervals. Breast MRI is available at [facility] ([facility], [facility]).To schedule, enter a breast MRI order into [facility] Epic (MRI BreastBilateral W WO contrast and 3DCAD), call [phone] or [phone], or fax [phone]. If this radiology report contains a blank impression section, it is anincomplete radiology report. Please contact the interpreting radiologistor applicable radiology division as soon as possible to obtain thecompleted interpretation. Angela Alcantara MD 10.23 us Unknown Provider [facility] Final Resu lt documented in this encounter Visit Diagnoses Not on filedocumented in this encounter Care Teams Director Supply Relationship Specialty Start Date End Date Santosh Celis MD [address] [place] [address] PCP - General 05/19/14 Frieda Jeff [address] [place] [address] security expert 08/20/17 documented as of this encounter
--- OUTSIDE RECORDS SUMMARY | 2024-05-29 16:19 | XMS_ITS | Encounter Summary ---
Author Organization [facility] Address [address] [place] [address] Care Team Providers Care President Trust Company Name Role Phone Santosh Celis MD Primary Care Provider [phone] Frieda Jeff Unavailable Encounter Details Date Type Department Care Team (Late st Contact Info) Description 02/28/2023 Minor Procedure/Test [address] [address] [facility], Unknown Provider Social History Tobacco Use Types [...] on filedocumented in this encounter Care Teams President Trust Company Relationship Specialty Start Date End Date Santosh Celis MD [address] [place] [address] PCP - General 05/19/14 Frieda Jeff [address] [place] [address] production troubleshooter 08/20/17 documented as of this encounter
--- OUTSIDE RECORDS SUMMARY | 2024-05-29 16:19 | XMS_ITS | Clinical Summary ---
Author Organization [facility] Address [address] [place] [address] Care Team Providers Care Tile Power Shear Operator Name Role Phone Santosh Celis MD Primary Care Provider [phone] Frieda Jeff Unavailable Allergies No known active allergies Medications * This document contains information received from the source organization and may not represent a complete record from that organization. No known medications Active Problems No known active problems Encounters Date Type Department Care Team Description 03/07/2024 Minor Procedure/Test [facility] [address] [place], [place] [id number] [place] [address], Unknown Provider from Last 3 Months Immunizations Name Administration Dates Next Due COVID-19, mRNA (Moderna Pre Fall 2022) Monovalent, 100 mcg/0.5 ml or 50 mcg/0.25 ml dose 04/05/2021,07/04/2020,06/06/2020 COVID-19, mRNA (Moderna Pre Fall 2022) bivalent, 25 mcg/0.25 ml (6 months - 11 years) or 50 mcg/0.5 ml (12+ years) 03/22/2022 Influenza (SEASONAL) - 05/15/2010,2008,04/06/2008, 007 Influenza Vac,Quad,Prsrv Fr, 6-35 Months 04/17/2015 Influenza,injectable,quad,Prsrv Fr 03/17/2017 PPD/TST (Tuberculin Skin Test) 02/09/2015 State H1N1 Vaccine,injection 05/08/2009 Td (adult), adsorbed 03/30/2015,12/31/1999 Tdap - 05/08/2009 influenza,seasonal,trivalent ,PF (Fluzone, Fluarix, Flulaval) 03/06/2011 Family History Medical History Relation Name Comments No Known or Significant Medical History Brother No Known or Significant Medical History Father Cancer - Breast Maternal aunt patient's m other was negative for brca Heart Disorder Maternal grandfather CAD/P VD Cancer - Breast Maternal grandmother mary jane ent's mother was negative for brca Hypertension Mother Heart Disorder Paternal grandfather CAD/P VD Psych/Mental Health Paternal grandmother schizophrenia Relation Name Status Comments Brother Alive 3 yrs younger Father Alive Maternal aunt Maternal grandfather Maternal grandmother Mother Alive Paternal grandfather Paternal grandmother Alive Social History Tobacco Use Types Packs/Day Years [...] Sign Reading Time Taken Comments Blood Pressure 112/78 08/20/2017 11:17 AM EDT Pulse 104 08/20/2017 11:17 AM EDT Temperature 37 ??C (98.6 ??F) 08/01/2013 3:31 PM EST Respiratory Rate 16 04/06/2008 8:30 AM EST Oxygen Saturation 99% 05/03/2009 1:45 PM EST Inhaled Oxygen Concentration - - Weight 59.4 kg (131 lb) 08/20/2017 11:17 AM EDT Height 167.6 cm (5' 6) 08/20/2017 11:17 AM EDT Body Mass Index 21.14 08/20/2017 11:17 AM EDT Plan of Treatment Health Maintenance Due Date Last Done Comments Hepatitis C Screening 1981 Hep B (1 of 3 - 19+ 3-dose series) 2000 Pap Smear 07/10/2019 07/10/2016, 03/24/2005 COVID-19 Vaccine ( season) 2024 03/22/2022, 04/05/2021, 07/04/2020, Additional history exists Influenza (#1) 2024 03/17/2017, 04/01, 03/06/2011, Additional history exists Mammogram/Breast Imaging 03/15/2025 024, 03/08/2023, 02/24/2022 DTaP/Tdap/Td (3 - Td or Tdap) 03/30/2025 03/30/2015, 05/08/2009, 12/31/1999 Zoster (Shingrix) (1 of 2) 12/16/2031 Eye/Retina Exam Discontinued 10/07/2007 LDL Cholesterol Discontinued 09/13/2013, 07/30, 04/06/2008, Additional history exists PPD Discontinued 02/09/2015 Physical Discontinued 08/20/2017, 08/30, 05/15/2010, Additional history exists HPV Vaccine Aged Out No longer eligi ble based on patient's age to complete this topic Hep A Aged Out No longer eligi ble based on patient's age to complete this topic Hib Aged Out No longer eligi ble based on patient's age to complete this topic Meningococcal ACWY Aged Out No longer eligible based on patient's age to complete this topic Pneumococcal Aged Out No longer eligi ble based on patient's age to complete this topic Procedures * Due to [place] [employer] law, this organization might not be sharing negative HIV tests. Procedure Name Priority Date/Time Associated Diagnosis Comments [facility] BILATERAL SCREENING DIGITAL MAMMOGRAM WITH JASON 03/15/2024 11:07 AM EDT LIPID PROFILE Routine 09/13/2013 1:35 PM EDT THINPREP PAP W REFLX TO HPV Routine 03/24/2005 11:21 AM EDT from Last 3 Months or Most Recently Relevant to Health Maintenance Results * Due to [place] [employer] law, this organization might not be sharing negative HIV tests. * [facility] BILATERAL SCREENING DIGITAL MAMMOGRAM WITH JASON (03/15/2024 11:07 AM EDT) Anatomical Region Laterality Modality Other 03/15/2024 11:0 7 AM EDT Narrative 03/15/2024 11:07 AM EDT Exam Date: 03/07/24 [facility] MAMMOGRAPHY [address] [place] [address] EXAMINATION TORIBIO Bilateral Screening Digital Mammogram With Jason. INDICATION Fátima Tomlin is a 43 y.o. female and is seen for: TORIBIO Bilateral Screening Digital Mammogram With Jason. CC and MLO views were obtained. FDA approved Transpara ??AI (artificial intelligence) software and R2 CAD were used as a concurrent reading aid in the interpretation of this study. COMPARISON Compared to: 02/28/2023 [facility] Bilateral Screening Digital Mammogram With Jason and [...] months intervals. Breast MRI is available at [facility] ([facility], [facility], and [facility]). To schedule, enter a breast MRI order into [facility] (MRI Breast Bilateral W WO contrast and 3DCAD), call [phone] or [phone], or fax [phone]. If this radiology report contains a blank impression section, it is an incomplete radiology report. ??Please contact the interpreting radiologist or applicable radiology division as soon as possible to obtain the completed interpretation. Angela Alcantara MD 5' . 131 Procedure Note [facility], Unknown Provider - 10/15/2024 Exam Date: 03/07/24 [facility] MAMMO[facility] [address] [place] [address] EXAMINATION TORIBIO Bilateral Screening Digital Mammogram With Jason. INDICATION Crystal Karol Tomlin is a 43 y.o. female and is seen for: TORIBIO Bilateral Screening Digital Mammogram With Jason. CC and MLO views were obtained. FDA approved QUALIA (formerly known as LocalResponse)a AI (artificialintelligence) software and R2 CAD were used as a concurrent reading aid inthe interpretation of this study. COMPARISON Compared to: 02/28/2023 [facility] Bilateral Screening Digital Mammogram WithTomo and 02/22/2022 [facility] Bilateral Screening Digital Mammogram With Jason Bilateral [...] lifetime risk for breast cancer was calculated usingSonia-Isa: 36.09%. which is high If the personal lifetime risk is more than 20%, according to ACS, NCCN andACR guidelines, annual screening breast MRI recommended in addition toannual mammography, ideally staggered in 6 months intervals. Breast MRI is available at [facility] ([facility], and [facility]).To schedule, enter a breast MRI order into [facility] (MRI BreastBilateral W WO contrast and 3DCAD), call [phone] or [phone], or fax [phone]. If this radiology report contains a blank impression section, it is anincomplete radiology report. Please contact the interpreting radiologistor applicable radiology division as soon as possible to obtain thecompleted interpretation. Angela Alcantara MD 5' 5.25 131 us Unknown Provider [facility] Final Resu lt * LIPID PROFILE (09/13/2013 1:35 PM EDT) Cholesterol 149 <200 mg/dL 09/13/2013 3:32 PM EDT [facility] Triglyceride 83 <150 mg/dL 09/13/2013 3:32 PM EDT [facility] Cholesterol.in HDL 86 >40 mg/dL 09/13/2013 3:32 PM EDT [facility] Comment: NCEP GUIDELINES Desireable >60 mg/dL Borderline 40-59 mg/dL ?? Undesirable <40 mg/dL LDL 47 <130 mg/dL 09/13/2013 3:32 PM EDT [facility] Chol/HDL Ratio 2 0 - 5 CALC 09/13/2013 3:32 PM EDT [facility] 09/13/2013 1:35 PM EDT 09/13/2013 1:35 PM EDT Narrative [facility] - 09/13/2013 12:00 AM EDT not fasting Patient's primary care provider is: ??Santosh Celis Santosh Celis MD LABORATORY Final Result [facility] * THINPREP PAP W REFLX TO HPV (03/24/2005 11:21 AM EDT) PAP Smear SEE TEXT 04/04/2005 10:00 AM EST [facility] Comment: ? THINPREP PAP TEST SOURCES: ??CERVIX, ENDOCERVIX NUMBER OF SLIDES: ??1 CLINICAL HISTORY: ??LMP: NOT GIVEN NORMAL EXAM STATEMENT OF ADEQUACY: ??SATISFACTORY, ENDOCERVICAL/TRANSFORMATION ZONE COMPONENT IS PRESENT QUALITY INDICATORS: LACK OF PERTINENT HISTORY: LMP RESULT: ??NEGATIVE FOR INTRAEPITHELIAL LESION OR MALIGNANCY HPV DNA TEST: ??BASED ON THE CYTOLOGY RESULT, REFLEX HIGH/INTERMEDIATE RISK HPV DNA PROBE TESTING IS NOT PERFORMED. FOLLOW-UP CLINICALLY INDICATED. COMMENTS: ??#[id number] RESULT DATE: ??04/03/2005 TECHNOLOGIST: ??FA/DD GYNECOLOGICAL CYTOLOGY IS A SCREENING PROCEDURE SUBJECT TO BOTH FALSE NEGATIVE AND FALSE POSITIVE RESULTS. ??IT IS MOST RELIABLE WHEN A SATISFACTORY SAMPLE IS OBTAINED ON A REGULAR REPETITIVE BASIS. RESULTS MUST BE INTERPRETED IN THE CONTEXT OF HISTORIC AND CURRENT CLINICAL INFORMATION. 03/24/2005 11:2 1 AM EDT 03/24/2005 11:21 AM EDT Narrative [facility] - 04/04/2005 10:00 AM EST Testing performed at: [facility], [address] [place] [address], [place], [address], Prototype Carpenter: LESLEE LAU M.D., CLIA ID# [id number] Sharron Gonzalez PATHOLOGY Final Result [facility] from Last 3 Months or Most Recently Relevant to Health Maintenance Care Teams Tile Power Shear Operator Relationship Specialty Start Date End Date Santosh Celis MD [address] [place] [address] PCP - General 05/19/14 Frieda Jeff [address] [place] [address] rn pediatric icu 08/20/17
--- OUTSIDE RECORDS SUMMARY | 2024-05-29 16:19 | XMS_ITS | Encounter Summary ---
Author Organization [facility] Address [address] [place] [address] Care Team Providers Care Morgue Technician Name Role Phone Unavailable Primary Care Provider Unavailabl e Encounter Details Date Type Department Care Team (Late st Contact Info) Description 08/30/2011 4:12 PM EDT - 09/01/2011 Hospital Encounter [facility] [address] [place] [address] Frieda Jeff MD [address] [place] [phone] Social History Tobacco Use Types Packs/Day Years [...] Description 07/13/2024 2:15 PM EST Office Visit [facility] cryptographic vulnerability analyst [address] [place] [address] Frieda Jeff MD [address] [place] [address] 03/09/2025 2:30 PM EDT Appointment [facility] Mammography [address] [place] [address] documented as of this encounter Procedures * Due to [place] state law, this organization might not be sharing negative HIV tests. Procedure Name Priority Date/Time Associated Diagnosis Comments HEMATOCRIT Routine 08/31/2011 6:30 AM EDT documented in this encounter Results * Due to [place] state law, this organization might not be sharing negative HIV tests. * (ABNORMAL) Hematocrit (08/31/2011 6:30 AM EDT) Hct 32.9(L) 37.0 - 47.0 % [facility] 08/31/2011 6:30 AM EDT 08/31/2011 7:09 AM EDT us Frieda Jeff MD LAB BLOOD ORDERABLES Final R esult [address] [address], [place] documented in this encounter Visit Diagnoses Not on filedocumented in this encounter
--- OUTSIDE RECORDS SUMMARY | 2024-05-29 16:19 | XMS_ITS | Encounter Summary ---
Author Organization [facility] Address [address] [place] [address] Care Team Providers Care Tourist Information Assistant Name Role Phone Santosh Celis MD Primary Care Provider [phone] TomerFrieda Unavailable Encounter Details Date Type Department Care Team (Late st Contact Info) Description 03/17/[phone] [place] [address], Unknown Provider Social History Tobacco Use Types [...] encounter Miscellaneous Notes * Telephone Encounter - [facility], Unknown Provider - 03/17/2022 1:41 PM EDT Telephone Encounter by GAUTAM Andrade at 03/17/2022 1:34 PM Author: GAUTAM Andrade Service: -- Author Type: Machinist/Machine Builder Filed: 03/17/2022 1:41 PM Encounter Date: 03/17/2022 Status: Signed Circuit Walker: GAUTAM Andrade (Machinist/Machine Builder) Called [facility] [phone] spoke to Cindi. No prior authorization is required. Covered 100% at the contracted rate. Reference #: [id number] Called [facility] [phone] spoke to Sue. Patient is booked for 03-24-22 at 2:[address] [place] [address]. Left message for patient to call back. documented in this encounter Plan of Treatment Not on file documented as of this encounter Visit Diagnoses Not on filedocumented in this encounter Care Teams Tourist Information Assistant Relationship Specialty Start Date End Date Santosh Celis MD [address] [place] [address] PCP - General 05/19/14 Frieda Jeff [address] [place] [address] certified ski patroller 08/20/17 documented as of this encounter
--- OUTSIDE RECORDS SUMMARY | 2024-05-29 16:19 | XMS_ITS | Encounter Summary ---
Author Organization [facility] Address [address] [place] [address] Care Team Providers Care Apple Thinner Name Role Phone Santosh Celis MD Primary Care Provider [phone] Reason for Visit * Reason Comments [facility] Visit * Consultation (Routine) - Closed Specialty Diagnoses / Procedures Referred By Aysha jamil Referred To Contact Obstetrics and Gynecology Diagnoses yearly martin Procedures ANNUAL Frieda Jeff MD [address] [place] [address] Phone: tel: fax: Referral ID Status Reason Start Date Expiration Date Visits Re quested Visits Authorized [id number] Closed 03/08/2019 03/08/2020 1 1 Encounter Details Date Type Department Care Team (Latest Contact Info) Description 03/08/2019 8:45 AM EDT Office Visit [facility] test borer helper [address] [place] [address] Frieda Jeff MD [address] [place] [address] Encounter for gynecological examination without abnormal finding (Primary Dx); Family history of breast cancer in first degree relative Social History Tobacco Use Types Packs/Day Years [...] Pressure 126/88 03/08/2019 8:44 AM EDT Pulse - - Temperature - - Respiratory Rate - - Oxygen Saturation - - Inhaled Oxygen Concentration - - Weight 59.4 kg (131 lb) 03/08/2019 8:44 AM EDT Height 165.7 cm (5' 5.25) 03/08/2019 8:44 AM ED T Body Mass Index 21.63 03/08/2019 8:44 AM EDT documented in this encounter Progress Notes * Frieda Jeff MD - 03/08/2019 9:09 AM EDT SUBJECTIVE: Fátima Tomlin is a 38 y.o. female who presents for annual exam. The patient has no complaints today. Strong FH of breast cancer--mom, maternal aunt, maternal GM. 13yo at [employer], [facility] [employer] [employer] and 8yo 2nd grade Menses q 25-28 days. 4-5 days. Vasectomy. The following portions of the patient's history were reviewed and updated as appropriate: allergies, current medications, past family history, past medical history, past social history, past surgicalhistory and problem list . Review of Systems Pertinent items are noted in HPI. OBJECTIVE: BP 126/88 Ht 1.657 m (5' 5.25) Wt 59.4 kg (131 lb) LMP 03/04/2019 BMI 21.63 kg/m?? General: alert, appears stated age and cooperative no adenopathy or thyromegaly Breasts Normal to palpation without dominant masses Abdomen: soft, non-tender, without masses or organomegaly Vulva: Normal external genitalia, including urethra, Bartholins and Maxatawny's glands Vagina: normal mucosa Cervix: no lesions Uterus: normal size, mobile, non-tender Adnexa: no mass, fullness, tenderness Lab Review PAP: 2017 Mammogram: NTD Colonoscopy: NTD Assessment & Plan Nl yearly exam. PAP was not done Discussed mammogram screening recommendations and colonoscopy screening Early mammo for strong FH of breast cancer. Frieda Jeff MD documented in this encounter Plan of Treatment Upcoming Encounters Date Type Department Care Team (Late st Contact Info) Description 07/13/2024 2:15 PM EST Office Visit [facility] test borer helper [address] [place] [address] Frieda Jeff MD [address] [place] [address] 03/09/2025 2:30 PM EDT Appointment [facility] Mammography [address] [place] [address] documented as of this encounter Visit Diagnoses Diagnosis Encounter for gynecological examination without abnormal finding- Primary Family history of breast cancer in first degree relative Family history of malignant neoplasm of breast documented in this encounter Care Teams Apple Thinner Relationship Specialty Start Date End Date Santosh Celis MD PCP - General 12/18/16 documented as of this encounter
--- OUTSIDE RECORDS SUMMARY | 2024-05-29 16:19 | XMS_ITS | Encounter Summary ---
Author Organization [facility] Address [address] [place] [address] Care Team Providers Care Business Analytics Director Name Role Phone Santosh Celis MD Primary Care Provider [phone] Frieda Jeff Unavailable Encounter Details Date Type Department Care Team (Late st Contact Info) Description 03/08/2023 Orders Only [facility] [address] [place] [address] [facility], Unknown Provider Social History Tobacco Use Types [...] of this encounter Procedures * Due to [place] [employer] law, this organization might not be sharing negative HIV tests. Procedure Name Priority Date/Time Associated Diagnosis Comments TORIBOI BILATERAL SCREENING DIGITAL MAMMOGRAM WITH JASON 03/08/2023 12:46 PM EDT documented in this encounter Results * Due to [place] [employer] law, this organization might not be sharing negative HIV tests. * TORIBIO BILATERAL SCREENING DIGITAL MAMMOGRAM WITH JASON (03/08/2023 12:46 PM EDT) Anatomical Region Laterality Modality Other 03/08/2023 12:4 6 PM EDT Narrative 03/08/2023 12:46 PM EDT EXAMINATION TORIBIO Bilateral Screening Digital Mammogram With Jason. INDICATION Crystal A Nabor is a 42 y.o. female and is seen for: TORIBIO Bilateral Screening Digital Mammogram With Jason. R2 CAD was used in the interpretation of this study. COMPARISON 2021. Bilateral Breast Findings: The breasts are extremely dense, which lowers the sensitivity of mammography. No significant masses, calcifications or other abnormalities are seen. IMPRESSION BI-RADS ??ATLAS category (overall): 1 - Negative MANAGEMENT Routine Screening Mammogram in 1 Year is recommended for bilateral. ??The patient was entered into a reminder system with a subsequent mammography target date. DENSE BREAST RECOMMENDATIONS: The patient has dense breast tissue shown on mammography. Per [employer] Appropriateness Criteria ??for Breast Cancer Screening (https://acsearch.acr.org/docs/80692/Narrative/) patient may benefit from tomosynthesis on future mammography and supplemental imaging with automated breast ultrasound (ABUS) or breast MRI depending on risk factors. Automated Breast Ultrasound (ABUS) is now available at both [facility] and in the Department of Mammography at [facility]. To schedule a patient, you can either enter an ABUS order into [facility] EMR (type in ABUS), call [facility] Central Scheduling at [phone], or call [facility] Central Scheduling at [phone]. To fax an external order: [facility] [phone] and [facility] [phone]. If this radiology report contains a blank impression section, it is an incomplete radiology report. ??Please contact the interpreting radiologist or applicable radiology division as soon as possible to obtain the completed interpretation. 5' 5.25 131 Procedure Note [facility], Unknown Provider - 03/08/2023 EXAMINATION TORIBIO Bilateral Screening Digital Mammogram With Jason. INDICATION Crystal A Tomlin is a 42 y.o. female and is seen for: TORIBIO Bilateral Screening Digital Mammogram With Jason. R2 CAD was used in the interpretation of this study. COMPARISON 2021. Bilateral Breast Findings: The breasts are extremely dense, which lowers the sensitivity ofmammography. No significant masses, calcifications or other abnormalitiesare seen. IMPRESSION BI-RADS ATLAS category (overall): 1 - Negative MANAGEMENT Routine Screening Mammogram in 1 Year is recommended for bilateral. Thepatient was entered into a reminder system with a subsequent mammographytarget date. DENSE BREAST RECOMMENDATIONS: The patient has dense breast tissue shown on mammography. Per [employer] Appropriateness Criteria for Breast Cancer Screening(https://acsearch.acr.org/docs/56317/Narrative/) patient may benefit fromtomosynthesis on future mammography and supplemental imaging with automated breast ultrasound(ABUS) or breast MRI depending on risk factors. Automated Breast Ultrasound (ABUS) is now available at both [facility] and in the Department of Mammography [facility]. To schedule a patient, you caneither enter an ABUS order into [facility] EMR (type in ABUS), call [facility] Central Scheduling [phone], or call [facility] Central Scheduling [phone]. To fax an external order: [facility] [phone] and[facility] [phone]. If this radiology report contains a blank impression section, it is anincomplete radiology report. Please contact the interpreting radiologistor applicable radiology division as soon as possible to obtain thecompleted interpretation. 5' 5.25 131 us Unknown Provider [email or web address]] Final Resu lt documented in this encounter Visit Diagnoses Not on filedocumented in this encounter Care Teams Business Analytics Director Relationship Specialty Start Date End Date Santosh Celis MD [address] [place] [address] PCP - General 05/19/14 Frieda Jeff [address] [place] [address] meat apprentice 08/20/17 documented as of this encounter
--- OUTSIDE RECORDS SUMMARY | 2024-05-29 16:19 | XMS_ITS | Encounter Summary ---
Author Organization [facility] Address [address] [place] [address] Care Team Providers Care Computer Art Instructor Name Role Phone Santosh Celis MD Primary Care Provider [phone] TomerFrieda Unavailable Encounter Details Date Type Department Care Team (Late st Contact Info) Description 03/14/[phone] [place] [address], Unknown Provider Social History Tobacco Use Types [...] encounter Miscellaneous Notes * Telephone Encounter - [facility], Unknown Provider - 03/14/2022 11:35 AM EDT Telephone Encounter by GAUTAM Andrade at 03/14/2022 11:33 AM Author: GAUTAM Andrade Service: -- Author Type: General Farmer Filed: 03/14/2022 11:35 AM Encounter Date: 03/11/2022 Status: Signed Reservoir Engineering Consultant: GAUTAM Andrade (General Farmer) Left message for patient to call back documented in this encounter Plan of Treatment Not on file documented as of this encounter Visit Diagnoses Not on filedocumented in this encounter Care Teams Computer Art Instructor Relationship Specialty Start Date End Date Santosh Celis MD [address] [place] [address] PCP - General 05/19/14 Frieda Jeff [address] [place] [address] linen room worker 08/20/17 documented as of this encounter
--- OUTSIDE RECORDS SUMMARY | 2024-05-29 16:19 | XMS_ITS | Encounter Summary ---
Author Organization [facility] Address [address] [place] [address] Care Team Providers Care Account Management Assistant Name Role Phone Santosh Celis MD Primary Care Provider [phone] Encounter Details Date Type Department Care Team (Late Contact Info) Description 03/17/2022 Orders Only [facility] nurse care manager [address] [place] [phone] Frieda Jeff MD [address] [place] [phone] Dense breasts (Primary Dx) Social History Tobacco Use Types [...] Description 07/13/2024 2:15 PM EST Office Visit [facility] nurse care manager [address] [place] [phone] Frieda Jeff MD [address] [place] [phone] 03/09/2025 2:30 PM EDT Appointment [facility] [address] [place] [address] documented as of this encounter Visit Diagnoses Diagnosis Dense breasts- Primary Inconclusive mammogram documented in this encounter Care Teams Account Management Assistant Relationship Specialty Start Date End Date Santosh Celis MD PCP - General 12/18/16 documented as of this encounter
--- OUTSIDE RECORDS SUMMARY | 2024-05-29 16:20 | XMS_ITS | Encounter Summary ---
Author Organization [facility] Address [address] [place] [address] Care Team Providers Care Per Diem Registered Nurse Name Role Phone Santosh Celis MD Primary Care Provider [phone] Reason for Visit * Reason Comments Mass red, swollen, tender area in right axilla x 2 weeks. On amox since 12/05/11 and the lump is worsening Provider ELIZA KAISER DO ( Doctor of Osteopathy,Internal Medicine [id number]) [facility] ([id number]) Encounter Details Date Type Department Care Team (Late st Contact Info) Description 12/08/2011 Office Visit [facility] [address] [place] [phone] Eliza Kaiser DO [address] [place] [address] Hidradenitis Social History Tobacco Use Types Packs/Day Years Used Date Smoking Tobacco: Never Assessed Comments Unknown Sex and Gender Information Value Date Recorded Sex Assigned at Not on file Legal Sex Female 9:02 PM EST Gender Identity Not on file Sexual Orientation Not on file documented as of this encounter Last Filed Vital Signs Vital Sign Reading Time Taken Comments Blood Pressure 102/64 12/08/2011 5:21 PM EDT Pulse 80 12/08/2011 5:21 PM EDT Temperature 36.9 ??C (98.5 ??F) 12/08/2011 5:21 PM ED T Respiratory Rate - - Oxygen Saturation - - Inhaled Oxygen Concentration - - Weight - - Height - - Body Mass Index - - documented in this encounter Patient Instructions * Patient Instructions* Eliza Kaiser - 12/08/2011 5:46 PM EDT Call office first thing in am to talk to referrals documented in this encounter Progress Notes * Eliza Kaiser - 12/08/2011 5:53 PM EDT F/u R axillae swelling, present X 2 1/2 wks, initially had small white pustule there, inc swelling/redness, + soreness , no fever, taking amoxil with no improvement + breast feeding Allergies: Review of patient's allergies indicates no known allergies. Current outpatient prescriptions: Amoxicillin 500 mg Oral Capsule Take 1 capsule three times daily for 7 days OCELLA 3 MG-0.03 MG TAB (ETHINYL ESTRADIOL/DROSPIRENONE) one tab po daily Gen-NAD, VSS R axillae- + erythematous swelling, tender , ~ 3 cm X 3 cm, no warmth, firm A/P Hidradenitis suppurativa -inc redness, suggestive of abscess -referral to general surgeon for eval and possible I&D * Eliza Kaiser - 12/07/2011 8:00 PM EDT Return if symptoms worsen or fail to improve. * Eliza Kaiser - 12/07/2011 8:00 PM EDT >> CAMILLE VIEYRA RN Mon Dec 08, 2011 5:21 PM Patient is . documented in this encounter Plan of Treatment Not on file documented as of this encounter Visit Diagnoses Diagnosis Hidradenitis documented in this encounter Care Teams Per Diem Registered Nurse Relationship Specialty Start Date End Date Santosh Celis MD [address] [place] [phone] PCP - General 05/19/14 documented as of this encounter
--- OUTSIDE RECORDS SUMMARY | 2024-05-29 16:20 | XMS_ITS | Encounter Summary ---
Author Organization [facility] Address [address] [id number] Care Team Providers Care Bargain Table Clerk Name Role Phone Jorje Rivera MD Primary Care Provider [phone] Reason for Visit * Reason Comments Knee Pain left Provider JORJE RIVERA MD ([facility] Doctor,Internal Medicine [id number]) [facility] ([id number]) Encounter Details Date Type Department Care Team (Late st Contact Info) Description 08/01/2014 Office Visit [facility] [address] [place] [phone] Jorje Rivera MD [address] [place] [phone] Pain in joint, lower leg Social History Tobacco Use Types Packs/Day Years Used Date Smoking Tobacco: Never Assessed Comments Unknown Sex and Gender Information Value Date Recorded Sex Assigned at Not on file Legal Sex Female 9:02 PM EST Gender Identity Not on file Sexual Orientation Not on file documented as of this encounter Last Filed Vital Signs Vital Sign Reading Time Taken Comments Blood Pressure 137/96 08/01/2014 2:32 PM EST Pulse 86 08/01/2014 2:32 PM EST Temperature - - Respiratory Rate - - Oxygen Saturation - - Inhaled Oxygen Concentration - - Weight - - Height - - Body Mass Index - - documented in this encounter Patient Instructions * Patient Instructions* Jorje Rivera MD - 08/01/2014 2:52 PM EST Referral Office: -knee mri -dr saba documented in this encounter Progress Notes * Jorje Rivera MD - 08/01/2014 2:45 PM EST 33 yo woman here for left knee pain. Ongoing intermittently for years. H/o PCL tear. No recent injury. Pain in medial joint line. Hurts going up/down stairs Feels 'unstable' if knee is flexed and she is leaning forward No swelling There is no problem list on file for this patient. Past Medical History Diagnosis Date ??? Tear of PCL (posterior cruciate ligament) of knee 1996 left knee; injured in gymnastics; treated with PT Past Surgical History Procedure Laterality Date ??? Labrum repair 1999 left shoulder ??? Repair biceps long tendon 2001 left arm ? ? Tonsillectomy & adenoidectomy 1987 No Known Drug Allergies. Current Outpatient Prescriptions: OCELLA 3 MG-0.03 MG TAB (ETHINYL ESTRADIOL/DROSPIRENONE) one tab po daily Exam: BP 137/96 Pulse 86 nad Left knee: full range of motion w/o instability. Medial joint line tenderness is present. No effusion Imp: Left knee pain, possible medial meniscus tear Plan: Mri left knee Ortho referral documented in this encounter Procedure Notes * Jorje Rivera MD - 04/24/2015 12:00 AM ESTAssociated Order(s): MRI LEFT KNEE W/O CONTRAST documented in this encounter Plan of Treatment Not on file documented as of this encounter Procedures * Due to [place] [employer] law, this organization might not be sharing negative HIV tests. Procedure Name Priority Date/Time Associated Diagnosis Comments MRI LEFT KNEE W/O CONTRAST Routine 08/19/2014 12:00 AM EDT documented in this encounter Results * Due to [place] state law, this organization might not be sharing negative HIV tests. * MRI LEFT KNEE W/O CONTRAST (08/19/2014 12:00 AM EDT) ATTACHED DOCUMENT 08/19/2014 12:00 AM EDT Anatomical Region Laterality Modality Other 08/19/2014 08/19/2014 Narrative Transcriptions Jorje Rivera MD - 04/24/2015 12:00 AM EST us Jorje Rivera MD IMAGING-ATRIUS Final Result documented in this encounter Visit Diagnoses Diagnosis Pain in joint, lower leg documented in this encounter Care Teams Bargain Table Clerk Relationship Specialty Start Date End Date Jorje Rivera MD [address] [place] [address] PCP - General 05/19/14 documented as of this encounter
--- OUTSIDE RECORDS SUMMARY | 2024-05-29 16:20 | XMS_ITS | Encounter Summary ---
Author Organization [facility] Address [address] [place] [address] Care Team Providers Care Supervisor Personnel Clerks Name Role Phone Santosh Celis MD Primary Care Provider [phone] Encounter Details Date Type Department Care Team (Late st Contact Info) Description 08/30/2011 Hospital/Inpatient NON FC SA NON FC UNK Provider, Unknown Social History Tobacco Use Types Packs/Day Years Used Date Smoking Tobacco: Never Assessed Comments Unknown Sex and Gender Information Value Date Recorded Sex Assigned at Not on file Legal Sex Female 9:02 PM EST Gender Identity Not on file Sexual Orientation Not on file documented as of this encounter Discharge Summaries * Provider, Unknown - 03/03/2015 12:00 AM EDT documented in this encounter Plan of Treatment Not on file documented as of this encounter Visit Diagnoses Not on filedocumented in this encounter Care Teams Supervisor Personnel Clerks Relationship Specialty Start Date End Date Santosh Celis MD [address] [place] [address] PCP - General 05/19/14 documented as of this encounter
--- OUTSIDE RECORDS SUMMARY | 2024-05-29 16:20 | XMS_ITS | Encounter Summary ---
Author Organization [facility] Address [address] [place] [address] Care Team Providers Care Ripsawyer Name Role Phone Santosh Celis MD Primary Care Provider [phone] Frieda Jeff Unavailable Encounter Details Date Type Department Care Team (Late st Contact Info) Description 03/08/2019 Minor Procedure/Test [address] [address] Frieda Jeff [address] [place] [address] [facility], Unknown Provider Social History Tobacco Use [...] on filedocumented in this encounter Care Teams Ripsawyer Relationship Specialty Start Date End Date Santosh Celis MD [address] [place] [address] PCP - General 05/19/14 Frieda Jeff [address] [place] [address] liquified natural gas technician 08/20/17 documented as of this encounter
--- OUTSIDE RECORDS SUMMARY | 2024-05-29 16:20 | XMS_ITS | Encounter Summary ---
Author Organization [facility] Address [address] [place] [address] Care Team Providers Care Political Science Instructor Name Role Phone Santosh Celis MD Primary Care Provider [phone] Frieda Jeff Unavailable Reason for Visit * Reason Comments CPE/Physical Encounter Details Date Type Department Care Team (Latest Contact Info) Description 08/20/2017 11:15 AM EDT CPE - Comprehensive Physical Exam [facility] Adult Medicine [address] [place] [phone] Santosh Celis MD [address] [place] [phone] Physical exam, annual (Primary Dx); Screening, lipid; Screening for diabetes mellitus Social History Tobacco Use Types Packs/Day Years [...] Pulse 104 08/20/2017 11:17 AM EDT Temperature - - Respiratory Rate - - Oxygen Saturation - - Inhaled Oxygen Concentration - - Weight 59.4 kg (131 lb) 08/20/2017 11:17 AM EDT Height 167.6 cm (5' 6) 08/20/2017 11:17 AM EDT Body Mass Index 21.14 08/20/2017 11:17 AM EDT documented in this encounter Patient Instructions * Patient Instructions* Santosh Celis MD - 08/20/2017 11:15 AM EDT Lab work Healthy Lifestyle and Routine Care Guidelines We are committed to providing you the highest quality of care and helping you maintain good health.An important practice to keep healthy is to follow some basic healthy lifestyle advice. Healthy Nutrition Eating a healthy diet can reduce health risks like heart disease, diabetes and obesity. Rather thanrelying on supplements and megavitamins, healthy eating habits are important to improve health and maintain your immune system. Eat a variety of foods. Choose a diet low in fat, cholesterol, salt andsugar and rich in fruits, vegetable, fiber and whole grain products. If you are overweight and havehypertension, dropping 20 pounds may decrease your BP by as much as 20 points! Exercise Regular exercise has many benefits including improvements in weight, blood pressure, sugar levels, cholesterol levels, bone strength and endurance. Any exercise has benefits, but 30 minutes of moderate, sustained aerobic physical activity 5-7 days per week is recommended. Supplements All women of childbearing age should take a multi vitamin with at least 0.4 mg of folate to help prevent defects. Also, avoiding alcohol, tobacco and drugs in early is important in having a healthy baby. Low-dose aspirin use may be considered for the primary prevention of cardiovascular disease (CVD) and colorectal cancer in adults over age 50 who have a 10% or greater 10-year risk of a vascular event, who are not at increased risk for bleeding, and who have a life expectancy of at least 10 years. You should discuss this with your provider, since there are also increased risks of bleeding associated with even low-dose aspirin, which may offset any benefit, particularly among older patients. In patients who have already had a heart attack or stroke, aspirin is generally recommended to decreasethe risk of a second heart attack or stroke; again, risks and benefits should be discussed with your provider. Vitamin D and calcium are important for strong, healthy bones. Both come from certain foods, and vitamin D is also produced by the body after exposure to sunlight. It is recommended that adults up toage 70 have 600 units of Vitamin D daily, and those over age 70 have 800 units of Vitamin D daily, along with 1000 mg of calcium, preferably from dietary sources. Many Americans have lower intake or levels of these substances than recommended. However, although vitamin D and calcium supplements arehelpful for adults known to have osteoporosis, whether they are helpful in adults who do not have osteoporosis is not clear. It is important to note that the risk for osteoporosis and fractures is higher in women after menopause than in premenopausal women and in men. We would recommend that you discuss with your provider whether Calcium and Vitamin D supplements are appropriate in your situation. Remember, supplements and herbal products are not a substitute for healthy eating habits. Megavitamins and supplements, except as advised by your doctor, are a waste of money and have not been shown to improve your health or prevent disease. Other Healthy Lifestyle Tips Avoid smoking. Tobacco causes more than 430,000 preventable deaths per year. Drink in moderation.Risks increase when women average more than 1 drink per day. Never drink and drive. Wear your seatbelt, motorcycle helmet and/or bike helmet. Get plenty of sleep and reduce stress. Use condoms and limit the number of sexual partners. See a dentist regularly. Yale your teeth twice per day and floss daily. If you are around guns, practice safe handling and keep them in locked cabinets when not in use. Install smoke detectors in your home.Avoid illicit drugs. Regular Screening Exams Regular physical exams are also important to maintain good health or detect problems early. Everyone's situation is different so it is important to discuss your concerns with your doctor, but the following is a general guideline of screening exams and tests recommended by the [facility] (QP). Complete Physical ??? Age 18-21 every year ??? Age 21-50 1-3 years depending on risk as determined by your doctor ??? Age 50+ yearly PAP Screening PAP smears should be done every 3 years starting at age 21; HPV testing should be added starting atage 30, and continuing every 5 years until age 65 if low risk (3 consecutive negative PAPs, and no history of sexually transmitted disease, HPV, dysplasia, HIV, or high risk sexual behavior). You may omit routine PAP smears after age 65 if you have had consistently negative PAP smears. PAP smears are not needed if have had a hysterectomy with removal of the cervix for benign disease. Breast Cancer screening ??? Breast exam yearly and monthly breast self-exam ??? Mammogram annually age 40-74 ??? Mammogram may be done earlier if there is a family history of pre-menopausal breast cancer (mother or sister) or a personal history of breast/ovarian/endometrial cancer. ??? Mammogram age 75 or above at doctor/patient discretion Colon Cancer Screening Age 50 or above (unless high risk history such as polyps, first degree relative with colon cancer, inflammatory bowel disease such as ulcerative colitis) Options include: ??? Colonoscopy every 10 years (recommended) ??? Sigmoidoscopy every 5 years plus fecal occult blood testing yearly ??? Annual fecal occult blood testing Eye Exam Screening Age 18-39 once unless high risk (severe nearsightedness, , family history) Age 40-65 every 2-4 years (yearly if diabetic) Age 65+ every 1-2 years (yearly if diabetic) Lab testing/blood work Age 18-65 fasting lipid profile every 5 years, more frequent if high risk (family history prematureheart disease, hypertension, diabetes, tobacco use) Age 45 start diabetes screening with fasting blood sugar every 3 years, more frequent if high risk (family history, obesity, sedentary lifestyle, hypertension, history of gestational diabetes or baby>9 lbs, poly cystic ovary syndrome) Osteoporosis Bone density testing at age 65 years, earlier if high risk (less than 127 pounds, or race, smoking, no exercise) STD Testing Age <25 all sexually active females should be tested yearly for chlamydia and gonorrhea Age >25 if have multiple sexual partners, inconsistent condom use, known exposure Hepatitis C testing for high risk individuals (defined as IV drug use, clotting factor use before 1986, transfusion or solid organ transplant before 1992, kidney dialysis, non-sterile needle use, high risk sexual activity) HIV testing if high risk (defined as blood product use before 1984, drug abuse, history of a sexually transmitted disease, new or multiple sexual partners, or inconsistent use of condoms). Immunizations Your doctor may recommend other immunizations as indicated by your medical condition, but the following are recommended for all women: ??? Tetanus every 10 years ??? HPV (Gardasil) if under age 26 ??? Flu yearly ??? Pneumovax (PPV23) and Prevnar (PCV13) once age 65 (earlier if high risk) ??? Zostavax (shingles) once age 60 or older ??? Varicella if no history of Chicken Pox disease or immunity and you are not documented in this encounter Progress Notes * Santosh Celis MD - 08/20/2017 11:15 AM EDT 36 yo woman here for complete physical examination. 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 Had normal pap with hpv in 2017. Feels well. Infrequent exercise. Recently bought a camp in [place]. There is no problem list on file for this patient. Past Medical History: Diagnosis Date ??? Sprain of cruciate ligament of knee 1996 left knee; injured in gymnastics; treated with PT (Tear of PCL (posterior cruciate ligament) of knee) Past Surgical History: Procedure Laterality Date ??? HX SHOULDER SURGERY 1999 labrum repair (left shoulder) ??? TENODESIS, LONG TENDON, BICEPS 2001 left arm ? ? TONSILLECTOMY & ADENOIDECTOMY; < AGE 12 1987 No Known Allergies No current outpatient prescriptions on file. Social History Social History Narrative to Greg. Purcell age 10 and Shekhar age 7 (as of 08/2017). Never smoked. No alcohol. 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 Hypertension Mother ??? .No Significant Medical History Father ??? .No Significant Medical History Brother ??? Cancer - Breast Maternal Grandmother 60 patient's mother was negative for brca ??? Cancer - Breast Maternal Aunt 45 patient's mother was negative for brca ??? Heart Disorder Maternal Grandfather 60 CAD/PVD ??? Heart Disorder Paternal Grandfather 60 CAD/PVD ??? Psych/Mental Health Paternal Grandmother schizophrenia ROS: No TIAs or unusual headaches, no dysphagia. No prolonged cough. No dyspnea or chest pain on exertion. No abdominal pain, change in bowel habits, black or bloody stools. No urinary tract symptoms. No new or unusual musculoskeletal symptoms. Normal menses, no abnormal vaginal bleeding, dischargeor unexpected pelvic pain. No new breast lumps, breast pain or nipple discharge. Exam: BP 112/78 Pulse (!) 104 Ht 5' 6 (1.676 m) Wt 131 lb (59.4 kg) LMP 08/05/2017 BMI 21.14 kg/m2 The physical exam is generally normal. Patient appears well, alert and oriented x 3, pleasant, cooperative. Vitals are as noted by nurse. Neck supple and free of adenopathy, or masses. No thyromegaly. EARLE. Ears, throat are normal. Chest is clear to auscultation. Heart sounds are normal, no murmurs, clicks, gallops or rubs. Abdomen is soft, no tenderness, masses or organomegaly. Breast/gu deferred to mixer attendant. Extremities are normal. Peripheral pulses are normal. Screening neurological exam is normal without focal findings. Skin is normal without suspicious lesions noted. Imp: Health maintenance Plan: Fasting lipids, glucose, a1c Immunizations up to date Diet/exercise discussed Dental/vision/glaucoma exam up to date Pap up to date and as per mixer attendant documented in this encounter Plan of Treatment Not on file documented as of this encounter Visit Diagnoses Diagnosis Physical exam, annual- Primary Routine general medical examination at a health care facility Screening, lipid Screening for lipoid disorders Screening for diabetes mellitus documented in this encounter Care Teams Political Science Instructor Relationship Specialty Start Date End Date Santosh Celis MD [address] [place] [phone] PCP - General 05/19/14 Fridea Jeff [address] [place] [phone] manager quality systems 08/20/17 documented as of this encounter
--- OUTSIDE RECORDS SUMMARY | 2024-05-29 16:20 | XMS_ITS | Encounter Summary ---
Author Organization [facility] Address [address] [id number] Care Team Providers Care Account Administrator Name Role Phone Jorje Celis MD Primary Care Provider [phone] Reason for Visit * Reason Comments Acne f/u cyst drained in right axilla on 12/10/11 Provider JORJE CELIS MD ([facility] Doctor,Internal Medicine [id number]) [facility] Adult Medicine ([id number]) Encounter Details Date Type Department Care Team (Late st Contact Info) Description 12/19/2011 Office Visit [facility] Adult Medicine [address] [place] [phone] Jorje Celis MD [address] [place] [address] Cellulitis and abscess of unspecified site Social History Tobacco Use Types Packs/Day Years Used Date Smoking Tobacco: Never Assessed Comments Unknown Sex and Gender Information Value Date Recorded Sex Assigned at Not on file Legal Sex Female 9:02 PM EST Gender Identity Not on file Sexual Orientation Not on file documented as of this encounter Last Filed Vital Signs Vital Sign Reading Time Taken Comments Blood Pressure 102/66 12/19/2011 1:50 PM EDT Pulse 80 12/19/2011 1:50 PM EDT Temperature 36.6 ??C (97.9 ??F) 12/19/2011 1:50 PM ED T Respiratory Rate - - Oxygen Saturation - - Inhaled Oxygen Concentration - - Weight - - Height - - Body Mass Index - - documented in this encounter Progress Notes * Jorje Celis - 12/19/2011 5:35 PM EDT 31 yo woman here for f/u right axillary abscess vs hidradenitis suppurtiva. Started a month ago as a white head which she 'popped' but lump did not go away. Saw Dr Gonzalez andgiven amoxicillin. This did not help so seen back by Dr Constantino who referred to surgery. She saw Mark and had I and D with drain placement. Drain removed in follow up last week by Dr Enrique. Patient states no pain or drainage from area. No fever. There is no problem list on file for this patient. Past Medical History: TEAR OF PCL (POSTERIOR CRUCIATE LIGAMENT) OF K* 1996 Comments: left knee; injured in gymnastics; treated with PT No Known Allergies. Current outpatient prescriptions: OCELLA 3 MG-0.03 MG TAB (ETHINYL ESTRADIOL/DROSPIRENONE) one tab po daily Exam: BP 102/66 Pulse 80 Temp(Src) 97.9 ??F (36.6 ??C) (Oral) nad No axillary LAD Healing scar right axilla, no redness or drainage, no ttp Imp: Successful treatment of right axillary abscess Plan: We discussed the fact that this may recur and she could consider not shaving her arms. She was not keen on this. We reviewed treatment of future lumps, mainly not to manipulate and to call me Over 10 min spent, >50% face to face counseling documented in this encounter Plan of Treatment Not on file documented as of this encounter Visit Diagnoses Diagnosis Cellulitis and abscess of unspecified site documented in this encounter Care Teams Account Administrator Relationship Specialty Start Date End Date Jorje Celis MD [address] [place] [address] PCP - General 05/19/14 documented as of this encounter
--- OUTSIDE RECORDS SUMMARY | 2024-05-29 16:20 | XMS_ITS | Encounter Summary ---
Author Organization [facility] Address [address] [place] [address] Care Team Providers Care Resaw Operator Name Role Phone Santosh Celis MD Primary Care Provider [phone] Encounter Details Date Type Department Care Team (Late st Contact Info) Description 03/30/[address], [address] Ashley Miller [facility]/[address] [place] [address] Social History Tobacco Use Types Packs/Day Years [...] on file documented as of this encounter ED Notes * Ashley Miller - 04/02/2015 12:00 AM EST documented in this encounter Plan of Treatment Not on file documented as of this encounter Visit Diagnoses Not on filedocumented in this encounter Care Teams Resaw Operator Relationship Specialty Start Date End Date Santosh Celis MD [address] [place] [id number] PCP - General 05/19/14 documented as of this encounter
--- OUTSIDE RECORDS SUMMARY | 2024-05-29 16:20 | XMS_ITS | Encounter Summary ---
Author Organization [facility] Address [address] [place] [address] Care Team Providers Care Building Construction Ironworker Name Role Phone Santosh Celis MD Primary Care Provider [phone] Reason for Visit * Reason Comments Other Provider LESVIA GARCIA ([facility] Doctor,[facility] [id number]) NON FC SA NON FC UNK ([id number]) Encounter Details Date Type Department Care Team ([facility] Contact Info) Description 09/13/2014 Letter/Form NON FC SA NON FC UNK Lesvia Garcia MD [address] [place] [address] Other unknown and unspecified cause of morbidity or mortality Social History Tobacco Use Types Packs/Day Years Used Date Smoking Tobacco: Never Assessed Comments Unknown Sex and Gender Information Value Date Recorded Sex Assigned at Not on file Legal Sex Female 9:02 PM EST Gender Identity Not on file Sexual Orientation Not on file documented as of this encounter Plan of Treatment Not on file documented as of this encounter Visit Diagnoses Diagnosis Other unknown and unspecified cause of morbidity or mortality documented in this encounter Care Teams Building Construction Ironworker Relationship Specialty Start Date End Date Santosh Celis MD [address] [place] [address] PCP - General 05/19/14 documented as of this encounter
--- OUTSIDE RECORDS SUMMARY | 2024-05-29 16:20 | XMS_ITS | Encounter Summary ---
Author Organization [facility] Address [address] [place] [address] Care Team Providers Care Sleeve Ironer Name Role Phone Jorje Celis MD Primary Care Provider [phone] Reason for Visit * Reason Comments Other Provider JORJE CELIS MD ([facility] Doctor,Internal Medicine [id number]) [facility] Adult Medicine ([id number]) Encounter Details Date Type Department Care Team ([facility] Contact Info) Description 08/22/2014 Telephone [facility] Adult Medicine [address] [place] [phone] Jorje Celis MD [address] [place] [address] Other ; Provider (JORJE CELIS MD (Medical Doctor,Internal Medicine [id number]) [facility] Medicine ([id number])) Social History Tobacco Use Types Packs/Day Years Used Date Smoking Tobacco: Never Assessed Comments Unknown Sex and Gender Information Value Date Recorded Sex Assigned at Not on file Legal Sex Female 9:02 PM EST Gender Identity Not on file Sexual Orientation Not on file documented as of this encounter Miscellaneous Notes * Telephone Encounter - Debbie Lee - 08/24/2014 3:53 PM EDT See my health message * Telephone Encounter - Debbie Lee - 08/24/2014 3:07 PM EDT Left message to call back My health message also sent to patient * Note to Patient via Portal - Jorje Celis MD - 08/24/2014 11:52 AM EDT From: DEBBIE LEE To: FÁTIMA TOMLIN Sent: 08/24/2014 03:52 PM Subject: RE:mri Hi fátima make sure you bring a copy of the films with you to your ortho appointment. Thanks debbie ----- Message ----- From: FÁTIMA TOMLIN Sent: 08/24/2014 3:48 PM EDT To: Debbie Lee Subject: RE:harshad Lewis, I still need to make an appt with ortho. I need to have them read the scan because the radiologist said my PCL was intact and I tore that when I was 17. I have been busy with life, but promise to call for an appt today or tomorrow. Thank you for letting me know. Fátima ----- Message ----- From: Debbie Lee Sent: 08/22/2014 9:09 AM EDT To: Fátima Tomlin Subject: harshad hines your mri showed a probably small tear medial meniscus when are you seeing the orthopedicdoctor? Debbie celis office * Telephone Encounter - Debbie Lee - 08/22/2014 9:07 AM EDT My health message sent to patient * Telephone Encounter - Debbie Lee - 08/22/2014 12:00 AM EDT Contacts Type Contact Phone 08/22/2014 09:07 AM Telephone (Outgoing) Fátima Tomlin (Self) documented in this encounter Plan of Treatment Not on file documented as of this encounter Visit Diagnoses Not on filedocumented in this encounter Care Teams Sleeve Ironer Relationship Specialty Start Date End Date Jorje Celis MD [address] [place] [address] PCP - General 05/19/14 documented as of this encounter
--- OUTSIDE RECORDS SUMMARY | 2024-05-29 16:20 | XMS_ITS | Encounter Summary ---
Author Organization [facility] Address [address] [place] [address] Care Team Providers Care Community Resource Officer Name Role Phone Santosh Celis MD Primary Care Provider [phone] Encounter Details Date Type Department Care Team (Late st Contact Info) Description 10/06/2014 Hospital/Inpatient NON FC SA NON FC UNK [...] encounter Discharge Summaries * Provider, Unknown - 04/24/2015 12:00 AM EST * Provider, Unknown - 04/24/2015 12:00 AM EST documented in this encounter Plan of Treatment Not on file documented as of this encounter Visit Diagnoses Not on filedocumented in this encounter Care Teams Community Resource Officer Relationship Specialty Start Date End Date Santosh Celis MD [address] [place] [address] PCP - General 05/19/14 documented as of this encounter
--- OUTSIDE RECORDS SUMMARY | 2024-05-29 16:20 | XMS_ITS | Encounter Summary ---
Author Organization [facility] Address [address] [place] [address] Care Team Providers Care Life Teacher Name Role Phone Jorje Rivera MD Primary Care Provider [phone] Reason for Visit * Reason Comments Other Provider JORJE RIVERA MD ([facility] Doctor,Internal Medicine [id number]) [facility] Adult Medicine ([id number]) Encounter Details Date Type Department Care Team ([facility] Contact Info) Description 04/19/2008 Letter/Form [facility] Adult Medicine [address] [place] [phone] Jorje Rivera MD [address] [place] [address] Social History Tobacco Use Types Packs/Day Years [...] on filedocumented in this encounter Care Teams Life Teacher Relationship Specialty Start Date End Date Jorje Rivera MD [address] [place] [address] PCP - General 05/19/14 documented as of this encounter
--- OUTSIDE RECORDS SUMMARY | 2024-05-29 16:20 | XMS_ITS | Encounter Summary ---
Author Organization [facility] Address [address] [place] [address] Care Team Providers Care Technical Documentation Specialist Name Role Phone Santosh Celis MD Primary Care Provider [phone] Frieda Jeff Unavailable Encounter Details Date Type Department Care Team (Late st Contact Info) Description 03/08/2019 Consult (Initial) [address] [address] Frieda Jeff [address] [place] [address] Social History Tobacco Use Types Packs/Day Years [...] on file documented as of this encounter Consult Notes * Frieda Jeff - 03/08/2019 9:23 AM EDT Progress Notes by Frieda Jeff MD at 03/08/2019 9:09 AM Author: Frieda Jeff MD Service: -- Author Type: Physician Filed: 03/08/2019 9:23 AM Encounter Date: 03/08/2019 Status: Signed Motor Tester: Frieda Jeff MD (Physician) SUBJECTIVE: Fátima Tomlin is a 38 y.o. female who presents for annual exam. The patient has no complaints today. Strong FH of breast cancer--mom, maternal aunt, maternal GM. 13yo at [employer], [facility] and 8yo 2nd grade Menses q 25-28 [...] Normal external genitalia, including urethra, Bartholins and Fairview's glands Vagina: normal mucosa Cervix: no lesions [...] on filedocumented in this encounter Care Teams Technical Documentation Specialist Relationship Specialty Start Date End Date Santosh Celis MD [address] [place] [id number] PCP - General 05/19/14 Frieda Jeff [address] [place] [address] button sawyer 08/20/17 documented as of this encounter
--- OUTSIDE RECORDS SUMMARY | 2024-05-29 16:20 | XMS_ITS | Encounter Summary ---
Author Organization [facility] Address [address] [place] [address] Care Team Providers Care Knot Cutter Name Role Phone Jorje Rivera MD Primary Care Provider Reason for Visit * Reason Comments CPE/Physical Provider JORJE IRVERA MD ([facility] Doctor,Internal Medicine [id number]) [facility] Adult Medicine ([id number]) Encounter Details Date Type Department Care Team (Latest Contact Info) Description 09/13/2013 CPE - Comprehensive Physical Exam [facility] Adult Medicine [address] [place] [phone] Jorje Rivera MD [address] [place] [address] Routine general medical examination at a health care facility; General counseling for prescription of oral contraceptives Social History Tobacco Use Types Packs/Day Years Used Date Smoking Tobacco: Never Assessed Comments Unknown Sex and Gender Information Value Date Recorded Sex Assigned at Not on file Legal Sex Female 9:02 PM EST Gender Identity Not on file Sexual Orientation Not on file documented as of this encounter Last Filed Vital Signs Vital Sign Reading Time Taken Comments Blood Pressure 118/76 09/13/2013 1:00 PM EDT Pulse 84 09/13/2013 1:00 PM EDT Temperature - - Respiratory Rate - - Oxygen Saturation - - Inhaled Oxygen Concentration - - Weight 56.2 kg (124 lb) 09/13/2013 1:00 PM EDT Height 165.7 cm (5' 5.25) 09/13/2013 1:00 PM ED T Body Mass Index 20.48 09/13/2013 1:00 PM EDT documented in this encounter Patient Instructions * Patient Instructions* Jorje Rivera - 09/13/2013 1:28 PM EDT Labs today Keep up the good work! documented in this encounter Progress Notes * Jorje Rivera - 09/13/2013 1:09 PM EDT 32 yo woman here for complete physical exam. Exercises 2-3 times per week. Sees Dr Frieda Jeff for paper stripper; had normal pap last Fall. Issues: Left knee pain- mild and intermittent. Prior remote injury on that knee. No swelling. There is no problem list on file for this patient. Past Medical History Diagnosis Date ??? Tear of PCL (posterior cruciate ligament) of knee 1996 left knee; injured in gymnastics; treated with PT Past Surgical History Procedure Laterality Date ??? Labrum repair 1999 left shoulder ??? Repair biceps long tendon 2001 left arm ? ? Tonsillectomy & adenoidectomy 1987 No Known Allergies. Current Outpatient Prescriptions: OCELLA 3 MG-0.03 MG TAB (ETHINYL ESTRADIOL/DROSPIRENONE) one tab po daily History Social History Narrative to Tuan. Gave to Binh on 12/16/06; Shekhar age 3 (as of 08/2013). Never smoked. No alcohol. 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 Family History Problem Relation Age of Onset ??? Hypertension Mother ??? No Significant Medical History Father ??? No Significant Medical History Brother ??? Cancer - Breast Maternal Grandmother 60 ??? Cancer - Breast Maternal Aunt 45 ??? CAD/PVD Maternal Grandfather 60 ??? CAD/PVD Paternal Grandfather 60 Ros: The patient denies any TIAs, unusual headaches, prolonged cough, dyspnea or chest pain on exertion,abdominal pain, change in bowel habits, black or bloody stools, urinary tract symptoms, or new or unusual musculoskeletal symptoms. She has normal menses and denies any abnormal vaginal bleeding or discharge, unexpected pelvic pain, new breast lumps, breast pain, or nipple discharge. Exam: BP 118/76 Pulse 84 Ht 5' 5.25 (1.657 m) Wt 124 lb (56.246 kg) BMI 20.49 kg/m2 The physical exam is generally normal. Skin w/o concerning lesions. ENT normal, neck supple and free of adenopathy or masses. No thyromegaly or carotid bruits. fundi normal. Chest is clear to IPPA. Heart sounds are normal, no murmurs, clicks, gallops, or rubs. Abdomen is soft, no tenderness, masses, or organomegaly. Extremities: no c/c/e. Left knee with full range of motion and positive anterior drawer sign. peripheral pulses and reflexes are normal. Breast/gu deferred to paper stripper. Imp: Health maintenance Left knee pain, intermittent, may be early OA from prior injury OCP use Plan: Lipids, cmp Immunizations up to date Pap smear up to date and as per paper stripper Diet/exercise discussed Dental/vision/glaucoma exam up to date Advance directives/hcp info discussed documented in this encounter Plan of Treatment Not on file documented as of this encounter Procedures * Due to [place] Api[employer] law, this organization might not be sharing negative HIV tests. Procedure Name Priority Date/Time Associated Diagnosis Comments LIPID PROFILE Routine 09/13/2013 1:35 PM EDT COMPREHENSIVE METABOLIC PROFILE W/GFR ([facility] Routine 09/13/2013 1:35 PM EDT documented in this encounter Results * Due to [facility] law, this organization might not be sharing negative HIV tests. * COMPREHENSIVE METABOLIC PROFILE W/GFR ([facility]) (09/13/2013 1:35 PM EDT) Glucose 83 65 - 99 mg/dl 09/13/2013 3:32 PM EDT [facility] Urea Nitrogen Blood (BUN) 9 7 - 25 mg/dL 09/13/2013 3:32 PM EDT [facility] Creatinine 0.86 0.50 - 1.16 mg/dL 09/13/2013 3:32 PM EDT [facility] Sodium 138 136 - 145 mmo/L 09/13/2013 3:32 PM EDT [facility] Potassium 3.5 3.5 - 5.3 mmol/L 09/13/2013 3:32 PM EDT [facility] Chloride 102 98 - 107 mmo/L 09/13/2013 3:32 PM EDT [facility] Calcium 9.1 8.5 - 10.4 mg/dL 09/13/2013 3:32 PM EDT [facility] Protein Total (Serum) 7.2 6.0 - 8.3 g/dL 09/13/2013 3:32 PM EDT [facility] Albumin 4.6 3.5 - 5.2 g/dL 09/13/2013 3:32 PM EDT [facility] Globulin 3 2 - 4 G/DL 09/13/2013 3:32 PM EDT [facility] Bilirubin, Total 0.32 0.20 - 1.50 mg/dL 09/13/2013 3:32 PM EDT [facility] Alkaline Phosphatase 47 33 - 130 U/L 09/13/2013 3:32 PM EDT [facility] AST (SGOT) 15 <38 U/L 09/13/2013 3:32 PM EDT [facility] Carbon Dioxide 25 23 - 33 mmol/L 09/13/2013 3:32 PM EDT [facility] ALT (SGPT) 9 <47 U/L 09/13/2013 3:32 PM EDT [facility] Glomerular Filtration Rate,Est 81 >60 ml/min 09/13/2013 3:32 PM EDT [facility] Comment: For patients greater than 18 years of and and if the patient is , please multiply result by 1.210 09/13/2013 1:35 PM EDT 09/13/2013 1:35 PM EDT Narrative [facility] - 09/13/2013 12:00 AM EDT not fasting Patient's primary care provider is: ??Jorje Rivera us Jorje Rivera MD LABORATORY Final Result [facility] * LIPID PROFILE (09/13/2013 1:35 PM EDT) Cholesterol 149 <200 mg/dL 09/13/2013 3:32 PM EDT [facility] Triglyceride 83 <150 mg/dL 09/13/2013 3:32 PM EDT [facility] Cholesterol.in HDL 86 >40 mg/dL 09/13/2013 3:32 PM EDT [facility] Comment: NCEP GUIDELINES Desireable >60 mg/dL Borderline 40-59 mg/dL ?? Undesirable <40 mg/dL LDL 47 <130 mg/dL 09/13/2013 3:32 PM EDT [facility] Chol/HDL Ratio 2 0 - 5 CALC 09/13/2013 3:32 PM EDT [facility] 09/13/2013 1:35 PM EDT 09/13/2013 1:35 PM EDT Narrative [facility] - 09/13/2013 12:00 AM EDT not fasting Patient's primary care provider is: ??Jorje Rivera. Jorje Rivera MD LABORATORY Final Result [facility] documented in this encounter Visit Diagnoses Diagnosis Routine general medical examination at a health care facility General counseling for prescription of oral contraceptives documented in this encounter Care Teams Knot Cutter Relationship Specialty Start Date End Date Jorje Rivera MD [address] [place] [address] PCP - General 05/19/14 documented as of this encounter
--- OUTSIDE RECORDS SUMMARY | 2024-05-29 16:20 | XMS_ITS | Encounter Summary ---
Author Organization [facility] Address [address] [id number] Care Team Providers Care Physical Therapist Aide Name Role Phone Santosh Celis MD Primary Care Provider [phone] Reason for Visit * Reason Comments URI Provider TOM JAMES MD ( Medical Doctor,Internal Medicine [id number]) [facility] Adult Medicine ([id number]) Encounter Details Date Type Department Care Team (Late st Contact Info) Description 05/03/2009 Office Visit [facility] Adult Medicine [address] [place] [phone] Tom James MD [address] [place] [address] Acute Sinusitis, Unspecified Social History Tobacco Use Types Packs/Day Years Used Date Smoking Tobacco: Never Assessed Comments Unknown Sex and Gender Information Value Date Recorded Sex Assigned at Not on file Legal Sex Female 9:02 PM EST Gender Identity Not on file Sexual Orientation Not on file documented as of this encounter Last Filed Vital Signs Vital Sign Reading Time Taken Comments Blood Pressure 104/70 05/03/2009 1:45 PM EST Pulse 108 05/03/2009 1:45 PM EST Temperature 36.8 ??C (98.3 ??F) 05/03/2009 1:45 PM ES T Respiratory Rate - - Oxygen Saturation 99% 05/03/2009 1:45 PM EST Inhaled Oxygen Concentration - - Weight - - Height - - Body Mass Index - - documented in this encounter Progress Notes * Tom James - 05/03/2009 2:01 PM EST HPI pt complains of a 1 week history of rhinorrhea, nasal congestion, ears blocked, bilateral sinus pressure, bilateral sinus pain, dry cough and post nasal drip, without associated shortness of breath, fever, chills, sweats, hearing loss, tinnitus, dizziness or earache. Symptoms have been persistent. pt has tried OTC Decongestants with no relief of symptoms. ROS: negative for constitutional, cardiac, GI and symptoms. There is no previous medical history on file. Social History: Tobacco & Alcohol Use Tobacco Use: Never Alcohol Use: No No Known Allergies. Current outpatient prescriptions prior to encounter: OCELLA 3 MG-0.03 MG TAB (ETHINYL ESTRADIOL/DROSPIRENONE) one tab po daily EXAM: BP 104/70 Pulse 108 Temp (Src) 98.3 ??F (36.8 ??C) (Oral) SpO2 99% Well-nourished well-developed in no apparent distress, Vital signs as above. Skin: normal, no cyanosis. HEENT: -Eyes-normal appearance, PERRL, EOMI, conjunctiva normal -Ears-normal external exam, canals and TMs -Nose-normal external exam, nasal mucous membranes -Sinuses - nile maxillary tenderness, no frontal tenderness -Throat-clear Neck: Supple; no anterior cervical or supraclavicular adenopathy; thyroid-normal. Chest: clear to auscultation. ASSESSMENT: acute Sinusitis PLAN: -Routine symptomatic measures discussed. . -mucinex.. -Azithromycin. -Return visit if symptoms persist or progress in any way despite above plan. documented in this encounter Plan of Treatment Not on file documented as of this encounter Visit Diagnoses Diagnosis Acute sinusitis, unspecified documented in this encounter Care Teams Physical Therapist Aide Relationship Specialty Start Date End Date Santosh Celis MD [address] [place] [address] PCP - General 05/19/14 documented as of this encounter
--- OUTSIDE RECORDS SUMMARY | 2024-05-29 16:20 | XMS_ITS | Encounter Summary ---
Author Organization [facility] Address [address] [place] [address] Care Team Providers Care Court Reporter Name Role Phone Santosh Celis MD Primary Care Provider Encounter Details Date Type Department Care Team ([facility] st Contact Info) Description 12/10/2011 Consult (Initial) GEN VAS UNSPECIFIED Maria A Enrique [address] [place] [phone] Social History Tobacco Use Types Packs/Day Years Used Date Smoking Tobacco: Never Assessed Comments Unknown Sex and Gender Information Value Date Recorded Sex Assigned at Not on file Legal Sex Female 9:02 PM EST Gender Identity Not on file Sexual Orientation Not on file documented as of this encounter Consult Notes * Maria A Enrique - 03/03/2015 12:00 AM EDT documented in this encounter Plan of Treatment Not on file documented as of this encounter Visit Diagnoses Not on filedocumented in this encounter Care Teams Court Reporter Relationship Specialty Start Date End Date Santosh Celis MD [address] [place], [place] [id number] PCP - General 05/19/14 documented as of this encounter
--- OUTSIDE RECORDS SUMMARY | 2024-05-29 16:20 | XMS_ITS | Encounter Summary ---
Author Organization [facility] Address [address] [place] [address] Care Team Providers Care Unishear Operator Name Role Phone Jorje Rivera MD Primary Care Provider Reason for Visit * Reason Comments Other Provider JORJE RIVERA MD ([facility] Doctor,Internal Medicine [id number]) [facility] Adult Medicine ([id number]) Encounter Details Date Type Department Care Team (Late st Contact Info) Description 08/22/2013 Letter/Form [facility] Adult Medicine [address] [place] [phone] Jorje Rviera MD [address] [place] [address] Social History Tobacco Use Types Packs/Day Years Used Date Smoking Tobacco: Never Assessed Comments Unknown Sex and Gender Information Value Date Recorded Sex Assigned at Not on file Legal Sex Female 9:02 PM EST Gender Identity Not on file Sexual Orientation Not on file documented as of this encounter Miscellaneous Notes * Letter - Jorje Rivera - 08/21/2013 8:00 PM EDT Fátima Tomlin August 22, 2013 11 [facility] [address] Dear Fátima Tomlin: Patient Number: [id number] We are looking forward to seeing you for your complete physical examination which is scheduled for Future Appointments Date Time Provider Department Center 09/13/2013 1:00 PM Jorje Rivera MD [facility] Your visit is scheduled at our [facility] office, [address] [place] [address] Adult Medicine Department. . Please fill out the enclosed paper work before you arrive at the office. Your answers will give your doctor the background information that is needed to allow more time to consider your main health problems. Please bring your current medications to your appointment in their original containers for review. Because this time has been reserved for you, and can be used for no other purpose, a fee will be charged if your appointment is not cancelled at least 24 hours in advance. If an abnormality is encountered or a preexisting problem is addressed in the process of performing your regular check up and if the problem is significant enough to require additional work to be performed, you may be charged an office visit with copay in addition to the charge of your routine examination. If you are female and are due for a pap smear during this visit, you may be asked to reschedule your pap smear if you are menstruating. If you wish to reschedule your physical examination, please call your physician's office. Our records indicate that you have Payor: [employer]P-[employer], if you have any insurance changes please contactour Registration Department at prior to your scheduled appointment. Please note thatsome insurance companies pay for this type of examination, but some do not. Notably, if you have Medicare, the federal government does not pay for routine physical examinations. (Medicare only coversone physical for new members within one year of initial enrollment). Also note that laboratory tests ordered as part of your office visit may or may not be covered by your insurance. Please review the material provided by your insurance company to understand your coverage or call the phone number on the back of your insurance card to verify your coverage. If your insurance does not cover this type of examination, you will receive a bill for these services and you will be responsible for payment. Sincerely, The Office of Jorje Rivera MD [employer] FREE ONLINE FEATURE: MyHealth Online MyHealth Online is a highly secure, web-based program that allows you to communicate with your physician???s office about non-urgent matters at your convenience. It directly connects you to portions of your electronic medical record. You can view lab results, get non-urgent medical advice, request appointments, view current medications, view and print immunization records, request prescription renewals, and much more! To sign up for [employer]: Visit [email or web address] or [email or web address] To ensure that you receive a response, please add [email or web address] to your address book or safe-sender list. Current Outpatient Prescriptions: OCELLA 3 MG-0.03 MG TAB (ETHINYL ESTRADIOL/DROSPIRENONE) one tab po daily documented in this encounter Plan of Treatment Not on file documented as of this encounter Visit Diagnoses Not on filedocumented in this encounter Care Teams Unishear Operator Relationship Specialty Start Date End Date Jorje Rivera MD [address] [place] [address] PCP - General 05/19/14 documented as of this encounter
--- OUTSIDE RECORDS SUMMARY | 2024-05-29 16:20 | XMS_ITS | Encounter Summary ---
Author Organization [facility] Address [address] [place] [address] Care Team Providers Care Overnight Stocker Name Role Phone Santosh Celis MD Primary Care Provider [phone] Reason for Visit * Reason Comments Other Provider MELODY LOPEZ LP (Licensed Practical Nurse,Internal Medicine A- [id number]) [facility] Adult Medicine ([id number]) Encounter Details Date Type Department Care Team ([facility] Contact [facility]) Description 07/21/[address] [phone] Melody Lopez LPN [facility] [address] [phone] Other ; Provider (MELODY LOPEZ LPN (Licensed Practical Nurse,Internal Medicine [id number]) [facility] ([id number])) Social History Tobacco Use Types Packs/Day Years Used Date Smoking Tobacco: Never Assessed Comments Unknown Sex and Gender Information Value Date Recorded Sex Assigned at Not on file Legal Sex Female 9:02 PM EST Gender Identity Not on file Sexual Orientation Not on file documented as of this encounter Miscellaneous Notes * Telephone Encounter - Melody Lopez - 07/21/2012 12:02 PM EST Spoke to patient and informed her that Rx was called in by documented in this encounter Plan of Treatment Not on file documented as of this encounter Visit Diagnoses Not on filedocumented in this encounter Care Teams Overnight Stocker Relationship Specialty Start Date End Date Santosh Celis MD [address] [place] [address] PCP - General 05/19/14 documented as of this encounter
--- OUTSIDE RECORDS SUMMARY | 2024-05-29 16:20 | XMS_ITS | Encounter Summary ---
Author Organization [facility] Address [address] [place] [address] Care Team Providers Care Newspaper Carrier Name Role Phone Jorje Celis MD Primary Care Provider [phone] Reason for Visit * Reason Comments CPE/Physical Provider JORJE CELIS MD ([facility] Doctor,Internal Medicine [id number]) [facility] Adult Medicine ([id number]) Encounter Details Date Type Department Care Team (Latest Contact Info) Description 04/06/2008 CPE - Comprehensive Physical Exam [facility] Adult Medicine [address] [place] [phone] Jorje Celis MD [address] [place] [id number] Other Malaise and Fatigue; Routine General Medical Examination at a Health Care Facility; Depressive Disorder, not Elsewhere Classified; Need for Prophylactic Vaccination and Inoculation Against Influenza Social History Tobacco Use Types Packs/Day Years Used Date Smoking Tobacco: Never Assessed Comments Unknown Sex and Gender Information Value Date Recorded Sex Assigned at Not on file Legal Sex Female 9:02 PM EST Gender Identity Not on file Sexual Orientation Not on file documented as of this encounter Last Filed Vital Signs Vital Sign Reading Time Taken Comments Blood Pressure 110/70 04/06/2008 8:30 AM EST Pulse 64 04/06/2008 8:30 AM EST Temperature - - Respiratory Rate 16 04/06/2008 8:30 AM EST Oxygen Saturation - - Inhaled Oxygen Concentration - - Weight 53.5 kg (118 lb) 04/06/2008 8:30 AM EST Height 165.1 cm (5' 5) 04/06/2008 8:30 AM EST Body Mass Index 19.64 04/06/2008 8:30 AM EST documented in this encounter Progress Notes * Jorje Celis - 04/06/2008 9:21 AM EST 27 yo woman here for CPE. She notes 2 months of feeling miserable... Unhappy ... Always tired. bored with the monotony of same daily activities. Still going towork and functioning well. No crying spells. Sleep and appetite are fine. Still able to enjoy usualrecreational activities. We discussed treatment at length to include talking therapy and medication. I gave her the number for staffier and [facility]. She will f/u with their therapist and psychiatrist. Also encouraged cardiovascular exercise. Pmhx: None Past Surgical History: labrum repair [Other] 1999 Comments: left shoulder REPAIR BICEPS LONG TENDON 2001 Comments: left arm TONSILLECTOMY & ADENOIDECTOMY 1987 No Known Allergies. Current outpatient prescriptions: OCELLA 3 MG-0.03 MG TAB (ETHINYL ESTRADIOL/DROSPIRENONE), one tab po daily Social History Narrative to Tuan, also dr celis's patient. Gave to Binh on 12/16/06. Never smoked. No alcohol. 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 Family Medical History: Hypertension Mother No Significant Family History Father No Significant Family History Brother Cancer - Breast Maternal Grandmother Comment: late 40's Family Status Mother Alive Father Alive Brother Alive Comment: 3 yrs younger Ros: The patient denies any TIAs, unusual headaches, prolonged cough, dyspnea or chest pain on exertion,abdominal pain, change in bowel habits, black or bloody stools, urinary tract symptoms, or new or unusual musculoskeletal symptoms. She has normal menses and denies any abnormal vaginal bleeding or discharge, unexpected pelvic pain, new breast lumps, breast pain, or nipple discharge. Exam: BP 110/70 Pulse 64 Resp 16 Ht 5' 5 (1.651 m) Wt 118 lb (53.524 kg) LMP 03/20/2008 The physical exam is generally normal. ENT normal, neck supple and free of adenopathy or masses. Nothyromegaly or carotid bruits. Cranial nerves and fundi normal. Chest is clear to IPPA. Heart sounds are normal, no murmurs, clicks, gallops, or rubs. Abdomen is soft, no tenderness, masses, or organomegaly. Extremities, peripheral pulses, and reflexes are normal. Imp: Health maintenance Dysthymia with fatigue a likely result Plan: Cbc,cmp,lipids,tsh,vit d Counseling as above Flu shot given F/u today with department chairperson for pap/pelvic today Age-appropriate counseling done 15 minutes dedicated to counseling regarding her dysthmia * Jorje Celis - 04/05/2008 7:00 PM EST >> LORENA LEE Heidi Apr 06, 2008 9:16 AM Flu shot given Consent obtained Pt tolerated well documented in this encounter Plan of Treatment Not on file documented as of this encounter Procedures * Due to [place] [employer] law, this organization might not be sharing negative HIV tests. Procedure Name Priority Date/Time Associated Diagnosis Comments TSH Routine 04/06/2008 12:00 AM EST LIPID PROFILE Routine 04/06/2008 12:00 AM EST COMPREHENSIVE METABOLIC PROFILE Routine 04/06/2008 12:00 AM EST VITAMIN D 25-HYDROXY TOTAL PLUS D2, D3 Routine 04/06/2008 12:00 AM EST HEMOGRAM (CBC) W AUTO DIFF RFLX MAN DIFF Routine 04/06/2008 12:00 AM EST documented in this encounter Results * Due to [place] [employer] law, this organization might not be sharing negative HIV tests. * TSH (04/06/2008 12:00 AM EST) Thyroid Stimulating Hormone 1.65 0.40 - 4.50 uIU/ml 04/06/2008 2:13 PM EST [facility] 04/06/2008 04/06/2008 us Jorje Celis MD LABORATORY Final Result Performing Organization Address City/State/[facility] de Phone Number [facility] * VITAMIN D 25-HYDROXY TOTAL PLUS D2, D3 (04/06/2008 12:00 AM EST) Vitamin D, 25 Hydroxy Total 46 20 - 100 NG/ML 04/16/2008 9:49 AM EST [facility] Vitamin D, D3 (Cholecalciferol ) 46 NG/ML 04/16/2008 9:49 AM EST [facility] Vitamin D, 25-OH, D2 (Calciferol) <4 NG/ML 04/16/2008 9:49 AM EST [facility] Comment: 25-OHD3 INDICATES BOTH ENDOGENOUS PRODUCTION AND SUPPLEMENTATION. 25-OHD2 IS AN INDICATOR OF EXOGENOUS SOURCES SUCH DIET OR SUPPLEMENTATION. THERAPY IS BASED ON MEASUREMENT OF TOTAL 25-OHD, WITH LEVELS <20 NG/ML INDICATIVE OF VITAMIN D DEFICIENCY WHILE LEVELS BETWEEN 20 NG/ML AND 30 NG/ML SUGGEST INSUFFICIENCY. OPTIMAL LEVELS ARE >30 NG/ML. ? 04/06/2008 04/06/2008 Narrative [facility] - 04/16/2008 12:00 AM EST Testing performed at: [facility], [address] [place] [address]. [address] [address], [place], [address], CLIA ID# [id number] Jorje Celis MD LABORATORY Final Result Performing Organization Address [facility] Co de Phone Number [facility] * (ABNORMAL) LIPID PROFILE (04/06/2008 12:00 AM EST) Cholesterol 148 100 - 199 MG/DL 04/06/2008 11:41 AM EST [facility] Triglyceride 79 30 - 149 MG/DL 04/06/2008 11:41 AM EST [facility] Cholesterol.in HDL 76 40 - 77 MG/DL 04/06/2008 11:41 AM EST [facility] LDL 56(L) 62 - 130 MG/DL 04/06/2008 11:41 AM EST [facility] Chol/HDL Ratio 2 0 - 5 CALC 04/06/2008 11:41 AM EST [facility] 04/06/2008 04/06/2008 us Jorje Celis MD LABORATORY Final Result [facility] * (ABNORMAL) HEMOGRAM (CBC) W AUTO DIFF RFLX MAN DIFF (04/06/2008 12:00 AM EST) Leukocytes 5.0 3.8 - 10.8 K/uL 04/06/2008 9:31 AM [facility] Neutrophils # 3.2 1.5 - 7.8 K/uL 04/06/2008 9:31 AM [facility] Lymphocytes # 1.4 0.9 - 3.9 K/uL 04/06/2008 9:31 AM [facility] Monocytes # 0.3 0.2 - 1.0 K/uL 04/06/2008 9:31 AM [facility] Eosinophils # 0.0 0.0 - 0.6 K/uL 04/06/2008 9:31 AM [facility] Basophils # 0.0 0.0 - 0.2 K/uL 04/06/2008 9:31 AM [facility] Neutrophils % 64.6 48.0 - 75.0 % 04/06/2008 9:31 AM [facility] Lymphocytes % 28.5 17.0 - 40.0 % 04/06/2008 9:31 AM [facility] Monocytes/100 Leukocytes 5.3 0.0 - 14.0 % 04/06/2008 9:31 AM [facility] Eosinophils/100 leukocytes 0.8 0.0 - 7.0 % 04/06/2008 9:31 AM [facility] Basophils/100 leukocytes 0.9 0.0 - 3.0 % 04/06/2008 9:31 AM [facility] Erythrocytes 4.78 3.80 - 5.10 M/uL 04/06/2008 9:31 AM [facility] Hemoglobin 14.4 11.7 - 15.5 g/dL 04/06/2008 9:31 AM [facility] Hematocrit 41.5 35.0 - 45.0 % 04/06/2008 9:31 AM [facility] Mean Corpuscular Volume 86.7 80.0 - 100.0 fl 04/06/2008 9:31 AM [facility] Mean Corpuscular Hemoglobin 30.2 27.0 - 33.0 pg 04/06/2008 9:31 AM [facility] Mean Corpuscular Hemoglobin Conc 34.8 32.0 - 36.0 % 04/06/2008 9:31 AM [facility] RDW 10.9(L) 11.0 - 15.0 % 04/06/2008 9:31 AM [facility] Platelets 218 140 - 400 K/uL 04/06/2008 9:31 AM [facility] 04/06/2008 04/06/2008 Jorje Celis MD LABORATORY Final Result [facility] * COMPREHENSIVE METABOLIC PROFILE (04/06/2008 12:00 AM EST) Glucose 80 65 - 99 mg/dL 04/06/2008 11:41 AM [facility] Urea Nitrogen Blood (BUN) 15 7 - 25 MG/DL 04/06/2008 11:41 AM [facility] Creatinine 1.1 0.5 - 1.3 MG/DL 04/06/2008 11:41 AM [facility] BUN/Creatinine Ratio 14 6 - 25 RATIO 04/06/2008 11:41 AM [facility] Sodium 146 135 - 148 MEQ/L 04/06/2008 11:41 AM [facility] Potassium 4.1 3.5 - 5.3 MEQ/L 04/06/2008 11:41 AM [facility] Chloride 107 98 - 110 MEQ/L 04/06/2008 11:41 AM [facility] Calcium 9.4 8.5 - 10.4 MG/DL 04/06/2008 11:41 AM [facility] Protein Total (Serum) 7.5 6.0 - 8.3 G/DL 04/06/2008 11:41 AM [facility] Albumin 4.2 3.5 - 4.9 G/DL 04/06/2008 11:41 AM [facility] Globulin 3 2 - 4 G/DL 04/06/2008 11:41 AM [facility] A/G Ratio 1.3 0.8 - 2.0 (CALC) 04/06/2008 11:41 AM [facility] Bilirubin, Total 0.4 0.2 - 1.5 MG/DL 04/06/2008 11:41 AM EST [facility] Alkaline Phosphatase 64 33 - 115 U/L 04/06/2008 11:41 AM EST [facility] AST (SGOT) 23 3 - 35 U/L 04/06/2008 11:41 AM EST [facility] Carbon Dioxide 26 21 - 33 MEQ/L 04/06/2008 11:41 AM EST [facility] ALT (SGPT) 11 3 - 40 U/L 04/06/2008 11:41 AM EST [facility] 04/06/2008 04/06/2008 us Jorje Celis MD LABORATORY Final Result [facility] documented in this encounter Visit Diagnoses Diagnosis Other malaise and fatigue Routine general medical examination at a health care facility Depressive disorder, not elsewhere classified Need for prophylactic vaccination and inoculation against influenza documented in this encounter Care Teams Newspaper Carrier Relationship Specialty Start Date End Date Jorje Celis MD [address] [place] [address] PCP - General 05/19/14 documented as of this encounter
--- OUTSIDE RECORDS SUMMARY | 2024-05-29 16:20 | XMS_ITS | Encounter Summary ---
Author Organization [facility] Address [address] [place] [id number] Care Team Providers Care Trouble Dispatcher Name Role Phone Santosh Celis MD Primary Care Provider [phone] Reason for Visit * Reason Comments Mass RIGHT ARMPIT; X 2 WK S Provider TOM JAMES MD ( Medical Doctor,Internal Medicine [id number]) [facility] Adult Medicine ([id number]) Encounter Details Date Type Department Care Team (Late st Contact Info) Description 12/05/2011 Office Visit [facility] Adult Medicine [address] [place] [phone] Tom James MD [address] [place] [address] Other specified disease of hair and hair follicles Social History Tobacco Use Types Packs/Day Years Used Date Smoking Tobacco: Never Assessed Comments Unknown Sex and Gender Information Value Date Recorded Sex Assigned at Not on file Legal Sex Female 9:02 PM EST Gender Identity Not on file Sexual Orientation Not on file documented as of this encounter Last Filed Vital Signs Vital Sign Reading Time Taken Comments Blood Pressure 96/72 12/05/2011 10:09 AM EDT Pulse 68 12/05/2011 10:09 AM EDT Temperature 37.1 ??C (98.7 ??F) 12/05/2011 10:09 AM E DT Respiratory Rate - - Oxygen Saturation - - Inhaled Oxygen Concentration - - Weight 58 kg (127 lb 12.8 oz) 12/05/2011 10:09 A M EDT Height - - Body Mass Index 21.1 05/15/2010 8:33 AM EST documented in this encounter Progress Notes * Tom James - 12/05/2011 10:46 AM EDT Pt C/o painful lump under her right arm , had a white head per pt report , squeezed out , though lump will go away but did not , this has been going on for 2 weeks , denies fever , chills is her 16 months old baby , no other complaints ,Rest of ros is negative Past Medical History: TEAR OF PCL (POSTERIOR CRUCIATE LIGAMENT) OF K* 1996 Comments: left knee; injured in gymnastics; treated with PT Social History: Tobacco & Alcohol Use Tobacco Use: Never Alcohol Use: No No Known Allergies. Current outpatient prescriptions ordered prior to encounter: OCELLA 3 MG-0.03 MG TAB (ETHINYL ESTRADIOL/DROSPIRENONE) one tab po daily Exam BP 96/72 Pulse 68 Temp(Src) 98.7 ??F (37.1 ??C) (Oral) Wt 127 lb 12.8 oz (57.97 kg) There is a tender subcutanous lump over lateral aspect of right axilla , with some erythema , slightly tender , non fluctuant , rest of axilla exam in nl A&P; FOLLICULITIS: will treat with amoxicillin since breast feeding , FU IN 2 WEEKS FOR REEVALUATION documented in this encounter Plan of Treatment Not on file documented as of this encounter Visit Diagnoses Diagnosis Other specified disease of hair and hair follicles documented in this encounter Care Teams Trouble Dispatcher Relationship Specialty Start Date End Date Santosh Celis MD [address] [place] [address] PCP - General 05/19/14 documented as of this encounter
--- OUTSIDE RECORDS SUMMARY | 2024-05-29 16:20 | XMS_ITS | Encounter Summary ---
Author Organization [facility] Address [address] [place] [address] Care Team Providers Care Junction Maker Name Role Phone Santosh Celis MD Primary Care Provider TomerFrieda Unavailable Encounter Details Date Type Department Care Team (Late st Contact Info) Description 02/22/2022 Minor Procedure/Test [id number] [place] [address], Unknown Provider Social History Tobacco Use Types [...] this encounter Procedures * Due to [place] Kargo[employer] law, this organization might not be sharing negative HIV tests. Procedure Name Priority Date/Time Associated Diagnosis Comments TORIBIO BILATERAL SCREENING DIGITAL MAMMOGRAM WITH JASON 02/24/2022 5:53 PM EDT documented in this encounter Results * Due to [place] Kargo[employer] law, this organization might not be sharing negative HIV tests. * TORIBIO BILATERAL SCREENING DIGITAL MAMMOGRAM WITH JASON (02/24/2022 5:53 PM EDT) Anatomical Region Laterality Modality Other 02/24/2022 5:53 PM EDT Narrative 02/24/2022 5:53 PM EDT EXAMINATION TORIBIO Bilateral Screening Digital Mammogram With Jason. INDICATION Crystal A Tomlin is a 41 y.o. female and is seen for: TORIBIO Bilateral Screening Digital Mammogram With Jason. R2 CAD was used in the interpretation of this study. COMPARISON Baseline Bilateral Breast Findings: The breasts are extremely [...] dense breast tissue shown on mammography. Per [employer] [place] [employer] Appropriateness Criteria ??for Breast Cancer Screening (https://acsearch.acr.org/docs/74022/Narrative/) patient may benefit from tomosynthesis on future mammography and supplemental imaging with automated breast ultrasound (ABUS) or breast MRI depending on risk factors. Automated Breast Ultrasound (ABUS) is now available at both [facility] and in the Department of Mammography at [facility]. To schedule a patient, you can either enter an ABUS order into [facility] [place] EMR (type in ABUS), call [facility] Central Scheduling at [phone], or call [facility] Central Scheduling at [phone]. To fax an external order: [facility] [phone] and [facility] [phone]. If this radiology report contains a blank impression section, it is an incomplete radiology report. ??Please contact the interpreting radiologist or applicable radiology division as soon as possible to obtain the completed interpretation. Procedure Note [facility], Unknown Provider - 02/24/2022 EXAMINATION TORIBIO Bilateral Screening Digital Mammogram With Jason. INDICATION Crystal A Tomlin is a 41 y.o. female and is seen for: [facility] Bilateral Screening Digital Mammogram With Jason. R2 CAD was used in the interpretation of this study. COMPARISON Baseline Bilateral Breast Findings: The breasts are extremely [...] of Radiology Appropriateness Criteria for Breast Cancer Screening(https://acsearch.acr.org/docs/78972/Narrative/) patient may benefit fromtomosynthesis on future mammography and supplemental imaging with automated breast ultrasound(ABUS) or breast MRI depending on risk factors. Automated Breast Ultrasound (ABUS) is now available at both [facility] and [facility]. To schedule a patient, you caneither enter an ABUS order into [facility] [place] EMR (type in ABUS), call [facility] Central Scheduling [phone], or call [facility] Central Scheduling [phone]. To fax an external order: [facility] [phone] and[facility] [phone]. If this radiology report contains a blank impression section, it is anincomplete radiology report. Please contact the interpreting radiologistor applicable radiology division as soon as possible to obtain thecompleted interpretation. us Unknown Provider [facility] Final Resu lt documented in this encounter Visit Diagnoses Not on filedocumented in this encounter Care Teams Junction Maker Relationship Specialty Start Date End Date Santosh Celis MD [address] [place] [address] PCP - General 05/19/14 Frieda Jeff [address] [place] [address] explosives engineer 08/20/17 documented as of this encounter
--- OUTSIDE RECORDS SUMMARY | 2024-05-29 16:20 | XMS_ITS | Encounter Summary ---
Author Organization [facility] Address [address] [place] [address] Care Team Providers Care Loading Unit Operator Powder Charging Name Role Phone Jorje Celis MD Primary Care Provider [phone] Reason for Visit * Reason Comments Other QUESTION IF PT. NEED S A F/U VISIT Provider JORJE CELIS MD ([facility] Doctor,Internal Medicine [id number]) [facility] Medicine ([id number]) Encounter Details Date Type Department Care Team ([facility] st Contact Info) Description 12/12/2011 Telephone [facility] Medicine [address] [place] [phone] Jorje Celis MD [address] [place] [address] Other (QUESTION IF PT. NEEDS A F/U VISIT); Provider (JORJE CELIS MD (Medical Doctor,Internal Medicine A-[id number]) [facility] ([id number])) Social History Tobacco Use Types Packs/Day Years Used Date Smoking Tobacco: Never Assessed Comments Unknown Sex and Gender Information Value Date Recorded Sex Assigned at Not on file Legal Sex Female 9:02 PM EST Gender Identity Not on file Sexual Orientation Not on file documented as of this encounter Miscellaneous Notes * Telephone Encounter - Jorje Celis - 12/12/2011 3:18 PM EDT Seen wed by dr martinez. Cyst was opened and drained. Drain taken out today by patient.is no longer on abx. States she has a small hole. She is worried it will become infected. Pt advised to keep area clean, neosporin and bandage and to keep appt for Thursday. Pt advised to call back sooner if purulent discharge, redness, swelling or pain * Telephone Encounter - Jorje Celis - 12/12/2011 2:46 PM EDT Pt. Calling, was seen by dr. Martinez, to open a cyst, and pt. Needs to know if she needs to come in to see dr. Celis for a wound check, To make sure that it is heeling ok pls call pt. And let her know * Telephone Encounter - Nathaly Richardson - 12/12/2011 12:00 AM EDT Contacts Type Contact Phone 12/12/2011 03:07 PM Telephone (Outgoing) Fátima Tomlin (Self) [phone] (H) documented in this encounter Plan of Treatment Not on file documented as of this encounter Visit Diagnoses Not on filedocumented in this encounter Care Teams Loading Unit Operator Powder Charging Relationship Specialty Start Date End Date Jorje Celis MD [address] [place] [address] PCP - General 05/19/14 documented as of this encounter
--- OUTSIDE RECORDS SUMMARY | 2024-05-29 16:20 | XMS_ITS | Encounter Summary ---
Author Organization [facility] Address [address] [place] [id number] Care Team Providers Care Odd Job Worker Name Role Phone Santosh Celsi MD Primary Care Provider [phone] Reason for Visit * Reason Comments Other Provider OUTSIDE PROVIDER (Ian sauceda [id number]) [facility] ([id number]) Encounter Details Date Type Department Care Team (Late st Contact Info) Description 08/30/2011 Hospital/Inpati ent NON FC SA NON FC UNK Unknown Pcp, Non Rmg Other unknown and unspecified cause of morbidity [...] mortality documented in this encounter Care Teams Odd Job Worker Relationship Specialty Start Date End Date Santosh Celis MD [address] [place] [address] PCP - General 05/19/14 documented as of this encounter
--- OUTSIDE RECORDS SUMMARY | 2024-05-29 16:20 | XMS_ITS | Encounter Summary ---
Author Organization [facility] Address [address] [place] [address] Care Team Providers Care Hog Tender Name Role Phone Santosh Celis MD Primary Care Provider [phone] Reason for Visit * Reason Comments Other Provider MELODY LOPEZ LP (Licensed Practical Nurse,Internal Medicine A- [id number]) [facility] Adult Medicine ([id number]) Encounter Details Date Type Department Care Team ([facility] Contact Info) Description 07/21/[address] [phone] Melody Lopez LPN [facility] [address] [phone] Other ; Provider (MELODY LOPEZ LPN (Licensed Practical Nurse,Internal Medicine A-[id number]) [facility] ([id number])) Social History Tobacco Use Types Packs/Day Years Used Date Smoking Tobacco: Never Assessed Comments Unknown Sex and Gender Information Value Date Recorded Sex Assigned at Not on file Legal Sex Female 9:02 PM EST Gender Identity Not on file Sexual Orientation Not on file documented as of this encounter Miscellaneous Notes * Telephone Encounter - Melody Lopez - 07/21/2012 11:48 AM EST Left message on machine to call back. * Telephone Encounter - Santosh Celis - 07/21/2012 11:31 AM EST Sent penicillin to [facility]. Finish entire course of antibiotics. Call if no improvement in 2 days * Telephone Encounter - Melody Lopez - 07/21/2012 11:[address] Celis - Please Advise: Fátima Tomlin is a 31 yrs. female who complains of sore throat, fever and body aches for 2 days. Patient obtained a positive rapid strept from [facility] in [place]. Patient is requesting an Rx be prescribed. * Telephone Encounter - Melody Lopez - 07/21/2012 12:00 AM EST Contacts Type Contact Phone 07/21/2012 11:47 AM Telephone (Outgoing) Fátima Tomlin (Self) documented in this encounter Plan of Treatment Not on file documented as of this encounter Visit Diagnoses Not on filedocumented in this encounter Care Teams Hog Tender Relationship Specialty Start Date End Date Santosh Celis MD [address] [place] [address] PCP - General 05/19/14 documented as of this encounter
--- OUTSIDE RECORDS SUMMARY | 2024-05-29 16:20 | XMS_ITS | Encounter Summary ---
Author Organization [facility] Address [address] [place] [address] Care Team Providers Care Care Associate Name Role Phone Santosh Celis MD Primary Care Provider [phone] Reason for Visit * Reason Comments Other Provider OUTSIDE PROVIDER (Al dical Records [id number]) [facility] ([id number]) Encounter Details Date Type Department Care Team (Late st Contact Info) Description 10/06/2014 Hospital/Inpati ent [facility]/[address] [address] Unknown Pcp, Non Rmg Other unknown and [...] mortality documented in this encounter Care Teams Care Associate Relationship Specialty Start Date End Date Santosh Celis MD [address] [place] [address] PCP - General 05/19/14 documented as of this encounter
--- OUTSIDE RECORDS SUMMARY | 2024-05-29 16:20 | XMS_ITS | Encounter Summary ---
Author Organization [facility] Address [address] [place] [address] Care Team Providers Care Layout Inspector Name Role Phone Santosh Celis MD Primary Care Provider [phone] Encounter Details Date Type Department Care Team (Late st Contact Info) Description 09/13/2014 Consult (Initial) ORTHO SURG UNSPECIFIED Henry aGrcia MD [address] [place] [address] Social History Tobacco Use Types Packs/Day Years Used Date Smoking Tobacco: Never Assessed Comments Unknown Sex and Gender Information Value Date Recorded Sex Assigned at Not on file Legal Sex Female 9:02 PM EST Gender Identity Not on file Sexual Orientation Not on file documented as of this encounter Consult Notes * Henry Garcia MD - 04/24/2015 12:00 AM EST documented in this encounter Plan of Treatment Not on file documented as of this encounter Visit Diagnoses Not on filedocumented in this encounter Care Teams Layout Inspector Relationship Specialty Start Date End Date Santosh Celis MD [address] [place] [address] PCP - General 05/19/14 documented as of this encounter
--- OUTSIDE RECORDS SUMMARY | 2024-05-29 16:20 | XMS_ITS | Encounter Summary ---
Author Organization [facility] Address [address] [place] [address] Care Team Providers Care Director Title Name Role Phone Santosh Rivera MD Primary Care Provider Frieda Jeff Unavailable Encounter Details Date Type Department Care Team ([facility] st Contact Info) Description 11/09/2017 Letter/Form [facility] Medicine [address] [place] [phone] Santosh Rivera MD [address] [place] [address] Social History Tobacco Use Types Packs/Day Years [...] this encounter Miscellaneous Notes * Letter - Santosh Rivera MD - 11/09/2017 10:50 AM EDT Nov 09, 2017 Fátima [id number] [address] [place] [address], [address] Dear Fátima RIVERA MD has ordered the following lab tests: GLUCOSE (BLOOD) HEMOGLOBIN A1C LIPID PANEL WITH REFLEX TO DIRECT LDL The results of this testing will help us monitor you more closely. You may have these tests performed at any of the [facility] labs, anytime during the hours of normal operation. A specific appointment day or time is no longer required. Please bring this letter with you to the lab. If you have recently been to the laboratory and had these studies performed, please disregard this letter. Sincerely, [facility] documented in this encounter Plan of Treatment Not on file documented as of this encounter Visit Diagnoses Not on filedocumented in this encounter Care Teams Director Title Relationship Specialty Start Date End Date Santosh Rivera MD [address] [place] [address] PCP - General 05/19/14 Frieda Jeff [address] [place] [address] checkering machine operator 08/20/17 documented as of this encounter
--- OUTSIDE RECORDS SUMMARY | 2024-05-29 16:20 | XMS_ITS | Encounter Summary ---
Author Organization [facility] Address [address] [place] [address] Care Team Providers Care Blood Bank Laboratory Technologist Name Role Phone Jorje Rivera MD Primary Care Provider [phone] Reason for Visit * Reason Comments Other Provider JORJE RIVERA MD ([facility] Doctor,Internal Medicine A-[id number]) [facility] Adult Medicine ([id number]) Encounter Details Date Type Department Care Team ([facility] Contact Info) Description 08/09/2014 Telephone [facility] Adult Medicine [address] [place] [phone] Jorje Rivera MD [address] [place] [address] Other ; Provider (JORJE RIVERA MD (Medical Doctor,Internal Medicine A-[id number]) [facility] Medicine ([id number])) Social History Tobacco Use Types Packs/Day Years Used Date Smoking Tobacco: Never Assessed Comments Unknown Sex and Gender Information Value Date Recorded Sex Assigned at Not on file Legal Sex Female 9:02 PM EST Gender Identity Not on file Sexual Orientation Not on file documented as of this encounter Miscellaneous Notes * Telephone Encounter - Cindi Oswald - 08/09/2014 10:46 AM EDT Opened in error documented in this encounter Plan of Treatment Not on file documented as of this encounter Visit Diagnoses Diagnosis Other unknown and unspecified cause of morbidity or mortality documented in this encounter Care Teams Blood Bank Laboratory Technologist Relationship Specialty Start Date End Date Jorje Rivera MD [address] [place] [address] PCP - General 05/19/14 documented as of this encounter
--- OUTSIDE RECORDS SUMMARY | 2024-05-29 16:20 | XMS_ITS | Encounter Summary ---
Author Organization [facility] Address [address] [place] [address] Care Team Providers Care Surgical Resident Name Role Phone Jorje Rivera MD Primary Care Provider [phone] Reason for Visit * Reason Comments Other REQUEST TO SPEAK WIT H NURSE RE: COLD SYMPTOMS Provider JORJE RIVERA MD ([facility] Doctor,Internal Medicine A-[id number]) [facility] Adult Medicine ([id number]) Encounter Details Date Type Department Care Team (Late st Contact Info) Description 05/03/2009 Telephone [facility] Adult Medicine [address] [place] [phone] Jorje Rivera MD [address] [place] [address] Other (REQUEST TO SPEAK WITH NURSE RE: COLD SYMPTOMS); Provider (JORJE RIVERA MD (Medical Doctor,Internal Medicine A-[id number]) [facility] ([id number])) Social History Tobacco Use Types Packs/Day Years Used Date Smoking Tobacco: Never Assessed Comments Unknown Sex and Gender Information Value Date Recorded Sex Assigned at Not on file Legal Sex Female 9:02 PM EST Gender Identity Not on file Sexual Orientation Not on file documented as of this encounter Miscellaneous Notes * Telephone Encounter - Debbie Acevedo - 05/03/2009 11:33 AM EST Fátima Tomlin is a 28 yrs. female who complains of sinus pressure and congestion for two weeks. Pt denies fevers no cough. No relief with otc medications. Pt request apt. 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 OTC meds help but not getting rid of symptoms completely. Please call pt [phone] documented in this encounter Plan of Treatment Not on file documented as of this encounter Visit Diagnoses Not on filedocumented in this encounter Care Teams Surgical Resident Relationship Specialty Start Date End Date Jorje Rivera MD [address] [place] [address] PCP - General 05/19/14 documented as of this encounter
--- OUTSIDE RECORDS SUMMARY | 2024-05-29 16:20 | XMS_ITS | Encounter Summary ---
Author Organization [facility] Address [address] [place] [address] Care Team Providers Care Plumbing Assembler Name Role Phone Santosh Celis MD Primary Care Provider [phone] Reason for Visit * Reason Comments Vision Screening Other CONTACT LENSE EXAM Provider CINDI BUTCHER OD (Doctor of Optometry,Visual Services A-[id number]) [facility] ([id number]) Encounter Details Date Type Department Care Team ([facility] st Contact Info) Description 10/07/2007 Consult (Initial) [facility] [address] [place] [phone] iCndi Butcher OD [address] [place] [phone] Examination of Eyes and Vision Social History Tobacco Use Types Packs/Day Years Used Date Smoking Tobacco: Never Assessed Comments Unknown Sex and Gender Information Value Date Recorded Sex Assigned at Not on file Legal Sex Female 9:02 PM EST Gender Identity Not on file Sexual Orientation Not on file documented as of this encounter Progress Notes * Cindi Butcher - 10/07/2007 10:30 AM EDT Fátima Tomlin examined on 10/07/2007 PERLA:New to [facility] 02-04 CC/RFV: routine eye exam for contacts WT 3 hrs AWT 14 hrs/day , 5-6 days/week [employer] (unknown Brand) Current lenses are 2 week(s) old. Disposes q 1 month(s) Family History: (-)Glaucoma, (-)Macular Degeneration, (-)Retinal detachment, (-) Diabetes, Hypertension: mother Patient Ocular History: Negative (-) Injury (-) Surgery (-) Flashes (-) Floaters Patient Medical History: NEGATIVE (-)HTN (-)DIABETES Are you or nursing? No. 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 Recorded by Shima Rojas on 10/07/2007 Neurological:Oriented to Time/Place/Person:Yes Psychiatric Mood and Affect Normal PD 61 Cover Test: Dist: Ortho/Iso Near:Ortho/Iso Pupils: PERRLA no APD EOMs: SAFE External: WNL C/L Over Refract OD 0 OS +0.25 Biomicroscopy: CL fit OD centers well, good movement OS centers well, good movement, toric sunny on axis CL condition OD slightly coated OS slightly coated Lids OD clear OS clear Conj OD clear, praneeth no GPC OS clear, praneeth no GPC Cornea OD clear, no SPK OS clear, no SPK Iris OD normal OS normal A.C. OD quiet OS quiet Angle OD 1:1 OS 1:1 Lens OD clear OS clear Keratometry OD 46.0/47.0 OS 46.0/46.5 Retinoscopy: OD -2.25 sphere OS -1.75 = -1.00 x 60 Subjective OD -2.50 sphere OS -2.00 = -1.00 x 57 VA with subjective OD 20/15-1 OS 20/15-1 Binocular Balance same Other testing: Phorias: DLP: ortho DVP: ISO Trial Frame OD -2.50 sphere OS -2.00 = -1.00 x 57 Fundus Dilated with 1% MYDRIACYL, 2.5% NEOSYNEPHERINE, 0.5% PROPARACAINE @ 11:23 AM Disc OD flat OS flat C/D OD .4 OS .4 Macula OD clear OS clear Vessels OD 2/3 OS 2/3 Media OD clear OS clear Periph OD Clear OS Clear Brunner screen visual field full with good fixation Assessment and Plan: Myopic astigmat Successful contact lens wearer Ocular health normal CL: Power change only, no fit change. RTC: 1 year Recorded by Cindi Butcher,JON on 10/07/2007 documented in this encounter Plan of Treatment Not on file documented as of this encounter Procedures * Due to [place] state law, this organization might not be sharing negative HIV tests. Procedure Name Priority Date/Time Associated Diagnosis Comments EYEGLASS PRESCRIPTION 10/07/2007 12:00 AM EDT Examination of eyes and vision documented in this encounter Visit Diagnoses Diagnosis Examination of eyes and vision documented in this encounter Care Teams Plumbing Assembler Relationship Specialty Start Date End Date Santosh Celis MD [address] [place] [address] PCP - General 05/19/14 documented as of this encounter
--- OUTSIDE RECORDS SUMMARY | 2024-05-29 16:20 | XMS_ITS | Encounter Summary ---
Author Organization [facility] Address [address] [place] [address] Care Team Providers Care Tank House Operator Helper Name Role Phone Santosh Celis MD Primary Care Provider [phone] Reason for Visit * Reason Comments Other Provider OUTSIDE PROVIDER (Nd dical Records [id number]) [facility] ([id number]) Encounter Details Date Type Department Care Team (Late st Contact Info) Description 10/12/2014 Hospital/Inpati ent [facility]/[address] [address] Unknown Pcp, Non Rmg Other unknown and [...] mortality documented in this encounter Care Teams Tank House Operator Helper Relationship Specialty Start Date End Date Santosh Celis MD [address] [place] [address] PCP - General 05/19/14 documented as of this encounter
--- OUTSIDE RECORDS SUMMARY | 2024-05-29 16:20 | XMS_ITS | Encounter Summary ---
Author Organization [facility] Address [address] [place] [address] Care Team Providers Care Senior Grants Officer Name Role Phone Santosh Celis MD Primary Care Provider [phone] Reason for Visit * Reason Comments PPD (Plant or Read) read Encounter Details Date Type Department Care Team (Latest Contact Info) Description 02/11/2015 6:45 PM EDT Minor Procedure/Test [facility] [address] [place] [address] Cheyanne Leach NP Other reasons for seeking consultation (Primary Dx) Social History Tobacco Use Types [...] as of this encounter Progress Notes * Cheyanne Leach NP - 02/11/2015 6:40 PM EDT Chief Complaint: Fátima Tomlin presents for reading of Tuberculin Skin Test. Brief Assessment of Health Status Date and time planted: 02/09/2015 10:00am at occupational health Readin mm, measured induration transversely, not erythema. Results: Less than 5 mm, negative Outcome: Recorded result in immunization activity. Patient Teaching Completed: Answered patient questions. documented in this encounter Plan of Treatment Not on file documented as of this encounter Visit Diagnoses Diagnosis Other reasons for seeking consultation- Primary documented in this encounter Care Teams Senior Grants Officer Relationship Specialty Start Date End Date Santosh Celis MD [address] [place] [address] PCP - General 05/19/14 documented as of this encounter
--- OUTSIDE RECORDS SUMMARY | 2024-05-29 16:20 | XMS_ITS | Encounter Summary ---
Author Organization [facility] Address [address] [place] [address] Care Team Providers Care Bus Van Driver Name Role Phone Jorje Rivera MD Primary Care Provider [phone] Reason for Visit * Reason Comments Other Provider JORJE RIVERA MD ([facility] Doctor,Internal Medicine [id number]) [facility] Adult Medicine ([id number]) Encounter Details Date Type Department Care Team ([facility] st Contact Info) Description 04/24/2010 Letter/Form [facility] Adult Medicine [address] [place] [phone] Jorje Rivera MD [address] [place] [address] Social History Tobacco Use Types Packs/Day Years Used Date Smoking Tobacco: Never Assessed Comments Unknown Sex and Gender Information Value Date Recorded Sex Assigned at Not on file Legal Sex Female 9:02 PM EST Gender Identity Not on file Sexual Orientation Not on file documented as of this encounter Miscellaneous Notes * Letter - Jorje Rivera - 04/23/2010 7:00 PM EST Fátima Tomlin [birth year] [address] [place] [phone] RE: Fátima Tomlin: Patient Number: [id number] We are looking forward to seeing you for your complete physical examination which is scheduled for May 15, 2010 at 8:30am with Jorje Rivera MD at [address] [place] [address] in [facility] Adult Medicine Department. Telephone - . Please fill out the enclosed questionnaire before you arrive at the office. Your answers will give your doctor the background information that is needed to allow more time to consider your main health problems. Your health care provider does not require you to fast for your appointment. He/she will determine the need for any testing during your examination. Please take your current medications as usual and bring them to your appointment in their original containers [...] you may be charged an office visit in addition to the charge of your routine examination. If you are female and are due for a pap smear during this visit, you may be asked to reschedule your pap smear if you are menstruating. This rescheduled pap smear visit is considered a separate visitfrom your physical examination and will include an additional fee/co payment. If you wish to reschedule your physical examination, please call your physician's office. Please note that some insurance companies pay for this type of examination, but some do not. Notably, if you have Medicare, the federal government does not pay for routine physical examinations. (Medicare only covers one physical for new members within one year of initial enrollment). Please reviewthe material provided by your insurance company to understand your coverage or call the phone number on the back of your insurance card to verify your coverage. If your insurance does not cover this type of examination, you will receive a bill for these services and you will be responsible for payment. Sincerely, The Office of Jorje Rivera MD [facility] documented in this encounter Plan of Treatment Not on file documented as of this encounter Visit Diagnoses Not on filedocumented in this encounter Care Teams Bus Van Driver Relationship Specialty Start Date End Date Jorje Rivera MD [address] [place] [address] PCP - General 05/19/14 documented as of this encounter
--- OUTSIDE RECORDS SUMMARY | 2024-05-29 16:20 | XMS_ITS | Encounter Summary ---
Author Organization [facility] Address [address] [place] [address] Care Team Providers Care Mixer Wet Pour Name Role Phone Jorje Rivera MD Primary Care Provider Reason for Visit * Reason Comments Other Provider JORJE RIVERA MD ([facility] Doctor,Lab [id number]) [facility] Laboratory ([id number]) Encounter Details Date Type Department Care Team (Late st Contact Info) Description 08/13/2009 Orders Only [facility] Laboratory Services [address] [place] [phone] Jorje Rivera MD [address] [place] [address] Social History Tobacco Use Types Packs/Day Years Used Date Smoking Tobacco: Never Assessed Comments Unknown Sex and Gender Information Value Date Recorded Sex Assigned at Not on file Legal Sex Female 9:02 PM EST Gender Identity Not on file Sexual Orientation Not on file documented as of this encounter Plan of Treatment Not on file documented as of this encounter Visit Diagnoses Diagnosis Routine general medical examination at a health care facility documented in this encounter Care Teams Mixer Wet Pour Relationship Specialty Start Date End Date Jorje Rivera MD [address] [place] [address] PCP - General 05/19/14 documented as of this encounter
--- OUTSIDE RECORDS SUMMARY | 2024-05-29 16:20 | XMS_ITS | Encounter Summary ---
Author Organization [facility] Address [address] [place] [id number] Care Team Providers Care Assembler Cards And Announcements Name Role Phone Santosh Celis MD Primary Care Provider [phone] Reason for Visit * Reason Comments Return Call Provider DK TOMPKINS RN (Registered Nurse,Internal Medicine A-[id number]) [facility] Adult Medicine ([id number]) Encounter Details Date Type Department Care Team (Late st Contact Info) Description 12/08/2011 Telephone [facility] Adult Medicine [address] [place] [phone] Dk Noel RN Return Call ; Provider (DK TOMPKINS RN (Registered Nurse,Internal Medicine A-[id number]) [facility] ([id number])) Social History Tobacco Use Types Packs/Day Years Used Date Smoking Tobacco: Never Assessed Comments Unknown Sex and Gender Information Value Date Recorded Sex Assigned at Not on file Legal Sex Female 9:02 PM EST Gender Identity Not on file Sexual Orientation Not on file documented as of this encounter Miscellaneous Notes * Telephone Encounter - Dk Noel - 12/08/2011 11:12 AM EDT Spoke with pt. Advised her of plan. Pt verbalized understanding. * Telephone Encounter - Dk Noel - 12/08/2011 9:57 AM EDT Pt returning call * Telephone Encounter - Dk Noel - 12/08/2011 9:49 AM EDT Left message on machine to call back. * Telephone Encounter - Dk Noel - 12/08/2011 9:31 AM EDT Needs to be seen , plse book with one of the providers that can do I&D * Telephone Encounter - Dk Noel - 12/08/2011 9:10 AM EDT Fátima Tomlin is a 30 yrs. female who complains of worsening sx of folliculitis. Pt report that lump has increased to the size of a quarter, is red and painful. Pt was seen on 12/05/11 and treated with Amox. Pt denies fever or any new sx. Dr. Gonzalez, please adivse. * Telephone Encounter - Maia Aparicio - 12/08/2011 12:00 AM EDT Contacts Type Contact Phone 12/08/2011 09:57 AM Telephone (Incoming) Fátima Tomlin (Self) [phone] (H) documented in this encounter Plan of Treatment Not on file documented as of this encounter Visit Diagnoses Not on filedocumented in this encounter Care Teams Assembler Cards And Announcements Relationship Specialty Start Date End Date Santosh Celis MD [address] [place] [address] PCP - General 05/19/14 documented as of this encounter
--- OUTSIDE RECORDS SUMMARY | 2024-05-29 16:20 | XMS_ITS | Encounter Summary ---
Author Organization [facility] Address [address] [place] [address] Care Team Providers Care Education Rn Name Role Phone Santosh Celis MD Primary Care Provider [phone] Encounter Details Date Type Department Care Team (Late st Contact Info) Description 10/20/2014 Consult (Initial) ORTHO SURG UNSPECIFIED Georgina Nixon NP [address] [phone] Social History Tobacco Use Types Packs/Day Years Used Date Smoking Tobacco: Never Assessed Comments Unknown Sex and Gender Information Value Date Recorded Sex Assigned at Not on file Legal Sex Female 9:02 PM EST Gender Identity Not on file Sexual Orientation Not on file documented as of this encounter Consult Notes * Georgina Nixon, TANYA - 11/09/2014 12:00 AM EDT documented in this encounter Plan of Treatment Not on file documented as of this encounter Visit Diagnoses Not on filedocumented in this encounter Care Teams Education Rn Relationship Specialty Start Date End Date Santosh Celis MD [address] [place] [address] PCP - General 05/19/14 documented as of this encounter
--- OUTSIDE RECORDS SUMMARY | 2024-05-29 16:20 | XMS_ITS | Encounter Summary ---
Author Organization [facility] Address [address] [place] [id number] Care Team Providers Care Administrative Staff Supervisor Name Role Phone Jorje Celis MD Primary Care Provider Reason for Visit * Reason Comments FYI Other LUMP IN ARMPIT Provider JORJE CELIS MD ([facility] Doctor,Internal Medicine [id number]) [facility] Adult Medicine ([id number]) Encounter Details Date Type Department Care Team ([facility] st Contact Info) Description 12/04/2011 Telephone [facility] Adult Medicine [address] [place] [phone] Jorje Celis MD [address] [place] [address] FYI ; Other (LUMP IN ARMPIT); Provider (JORJE CELIS MD (Medical Doctor,Internal Medicine A-[id number]) [facility] ([id number])) Social History Tobacco Use Types Packs/Day Years Used Date Smoking Tobacco: Never Assessed Comments Unknown Sex and Gender Information Value Date Recorded Sex Assigned at Not on file Legal Sex Female 9:02 PM EST Gender Identity Not on file Sexual Orientation Not on file documented as of this encounter Miscellaneous Notes * Telephone Encounter - Jorje Celis - 12/04/2011 4:26 PM EDT Fátima Tomlin is a 30 yrs. female who complains of having an isolated lump under her right armpit x 1 week. Pt states at the onset, there was a pimple and she thought it was an ingrown hair. The pimple has resolved. She now has a painful lump under the right arm that is bigger than a marble and tender to the touch. Denies; fever, warmth to the touch at the site of lump, redness. Denies any Hx of cysts. Patient transferred to drawer liner to book an appointment tomorrow. Appt: 12/05/11, Dr. Gonzalez, 10:00 am Routed to PCP as an FYI. * Telephone Encounter - Jorje Celis - 12/04/2011 4:19 PM EDT Pt has a lump in armpit x1 week. Its sore. Thought it was ingrown hair but is just a lump. States its 1/2 inch * Telephone Encounter - Jorje Celis - 12/04/2011 12:00 AM EDT Contacts Type Contact Phone 12/04/2011 04:19 PM Telephone (Incoming) Fátima Tomlin (Self) [phone] (H) documented in this encounter Plan of Treatment Not on file documented as of this encounter Visit Diagnoses Not on filedocumented in this encounter Care Teams Administrative Staff Supervisor Relationship Specialty Start Date End Date Jorje Celis MD [address] [place] [address] PCP - General 05/19/14 documented as of this encounter
--- OUTSIDE RECORDS SUMMARY | 2024-05-29 16:20 | XMS_ITS | Encounter Summary ---
Author Organization [facility] Address [address] [place] [address] Care Team Providers Care Drilling Supervisor Name Role Phone Jorje Rivera MD Primary Care Provider [phone] Reason for Visit * Reason Comments Other Provider JORJE RIVERA MD ([facility] Doctor,Pediatrics A-[id number]) [facility] Pediatric[facility] ([id number]) Encounter Details Date Type Department Care Team (Late st Contact Info) Description 07/31/2013 Letter/Form [facility] Pediatrics [address] [place] [phone] Jorje Rivera MD [address] [place] [address] Social History Tobacco Use Types Packs/Day Years Used Date Smoking Tobacco: Never Assessed Comments Unknown Sex and Gender Information Value Date Recorded Sex Assigned at Not on file Legal Sex Female 9:02 PM EST Gender Identity Not on file Sexual Orientation Not on file documented as of this encounter Miscellaneous Notes * Letter - Jorje Rivera - 07/30/2013 7:00 PM EST Fátima Tomlin July 31, 2013 [address] [facility] [address] Dear Fátima: The result of your rapid strep test was negative. Please call the office if symptoms persist longerthan 72 hours or worsen for further clinical advice. Sincerely, Dr. Ketan Rivera documented in this encounter Plan of Treatment Not on file documented as of this encounter Visit Diagnoses Not on filedocumented in this encounter Care Teams Drilling Supervisor Relationship Specialty Start Date End Date Jorje Rivera MD [address] [place] [address] PCP - General 05/19/14 documented as of this encounter
--- OUTSIDE RECORDS SUMMARY | 2024-05-29 16:20 | XMS_ITS | Encounter Summary ---
Author Organization [facility] Address [address] [place] [address] Care Team Providers Care Public Works Technician Name Role Phone Jorje Rivera MD Primary Care Provider [phone] Reason for Visit * Reason Comments Other Provider JORJE RIVERA MD ([facility] Doctor,Internal Medicine A-[id number]) [facility] Adult Medicine ([id number]) Encounter Details Date Type Department Care Team ([facility] st Contact Info) Description 08/21/2009 Letter/Form [facility] Adult Medicine [address] [place] [phone] Jorje Rivera MD [address] [place] [address] Social History Tobacco Use Types Packs/Day Years [...] on filedocumented in this encounter Care Teams Public Works Technician Relationship Specialty Start Date End Date Jorje Rivera MD [address] [place] [address] PCP - General 05/19/14 documented as of this encounter
--- OUTSIDE RECORDS SUMMARY | 2024-05-29 16:20 | XMS_ITS | Encounter Summary ---
Author Organization [facility] Address [address] [place] [address] Care Team Providers Care Credit Reporter Name Role Phone Santosh Celis MD Primary Care Provider [phone] Reason for Visit * Reason Onset Date Comments Referral Request 11/09/2014 Encounter Details Date Type Department Care Team ([facility] [place] st Contact Info) Description 11/09/2014 Telephone [facility] Medicine [address] [place] [phone] Santosh Celis MD [address] [place] [address] Referral Request Social History Tobacco Use Types Packs/Day Years Used Date Smoking Tobacco: Never Assessed Comments Unknown Sex and Gender Information Value Date Recorded Sex Assigned at Not on file Legal Sex Female 9:02 PM EST Gender Identity Not on file Sexual Orientation Not on file documented as of this encounter Miscellaneous Notes * Telephone Encounter - Debbie Acevedo - 11/09/2014 1:48 PM EDT Referral done left message for patient * Telephone Encounter - Tai Harris - 11/09/2014 11:51 AM EDT Patient states information from 11/06 in the computer is the incorrect information, she needs referral for physical therapy at [facility]. She had a session on 11/07. Their fax number is [phone]. Pt also said the referral office faxed over information on 10/31. Pt was not sure which fax number the information went to. Please call pt to confirm referral for PT has been placed. documented in this encounter Plan of Treatment Not on file documented as of this encounter Visit Diagnoses Diagnosis Knee pain, left- Primary Pain in joint, lower leg documented in this encounter Care Teams Credit Reporter Relationship Specialty Start Date End Date Santosh Celis MD [address] [place] [address] PCP - General 05/19/14 documented as of this encounter
--- OUTSIDE RECORDS SUMMARY | 2024-05-29 16:20 | XMS_ITS | Encounter Summary ---
Author Organization [facility] Address [address] [place] [address] Care Team Providers Care Cnc Lathe Programmer Name Role Phone Jorje Celis MD Primary Care Provider [phone] Reason for Visit * Reason Comments CPE/Physical Provider JORJE CELIS MD ([facility] Doctor,Internal Medicine [id number]) [facility] Adult Medicine ([id number]) Encounter Details Date Type Department Care Team (Latest Contact Info) Description 05/15/2010 CPE - Comprehensive Physical Exam [facility] Adult Medicine [address] [place] [phone] Jorje Celis MD [address] [place] [address] Routine general medical examination at a health care facility; Need for prophylactic vaccination and inoculation against influenza Social History Tobacco Use Types Packs/Day Years Used Date Smoking Tobacco: Never Assessed Comments Unknown Sex and Gender Information Value Date Recorded Sex Assigned at Not on file Legal Sex Female 9:02 PM EST Gender Identity Not on file Sexual Orientation Not on file documented as of this encounter Last Filed Vital Signs Vital Sign Reading Time Taken Comments Blood Pressure 120/70 05/15/2010 8:33 AM EST Pulse 64 05/15/2010 8:33 AM EST Temperature - - Respiratory Rate - - Oxygen Saturation - - Inhaled Oxygen Concentration - - Weight 54.4 kg (120 lb) 05/15/2010 8:33 AM EST Height 165.7 cm (5' 5.25) 05/15/2010 8:33 AM ES T Body Mass Index 19.82 05/15/2010 8:33 AM EST documented in this encounter Progress Notes * Jorje Celis - 05/15/2010 8:57 AM EST 29 yo woman here for cpe. Feels well. No complaints. No regular exercise. 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 Past Medical History: TEAR OF PCL (POSTERIOR CRUCIATE LIGAMENT) OF K* 1996 Comments: left knee; injured in gymnastics; treated with PT Past Surgical History: labrum repair [Other] 1999 Comments: left shoulder REPAIR BICEPS LONG TENDON 2001 Comments: left arm TONSILLECTOMY & ADENOIDECTOMY 1987 No Known Allergies. Current outpatient prescriptions: OCELLA 3 MG-0.03 MG TAB (ETHINYL ESTRADIOL/DROSPIRENONE) one tab po daily History Social History Narrative to Tuan. Gave to Binh on 12/16/06. Never smoked. No alcohol. 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 Family Medical History: Hypertension Mother No Significant [...] breast pain, or nipple discharge. Exam: BP 120/70 Pulse 64 Ht 5' 5.25 (1.657 m) Wt 120 lb (54.432 kg) The physical exam is generally normal. Skin w/o concerning lesions. ENT normal, neck supple and free of adenopathy or masses. No thyromegaly or carotid bruits. Cranial nerves and fundi normal. Chest is clear to IPPA. Heart sounds are normal, no murmurs, clicks, gallops, or rubs. Abdomen is soft, notenderness, masses, or organomegaly. Extremities, peripheral pulses, and reflexes are normal. Breast/foreign broadcast specialist exam deferred to foreign broadcast specialist. Imp: Health maintenance Plan: No indication for lab testing Flu shot given Patient has appt scheduled with foreign broadcast specialist (Dr Jeff) Diet/exercise discussed Dental/vision/glaucoma exam up to date * Jorje Celis - 05/14/2010 7:00 PM EST >> LORENA LEE Wed May 15, 2010 9:32 AM ? Patient screened for risk factors (egg allergy, recent illness, history of Guillain-Hamlet syndrome, prior serious reaction to flu vaccine) and possible reactions explained.? Denies any allergy to latex. ? Consent obtained to administer flu vaccine vaccine(s). ? flu vaccine vaccine(s) administered per patient/containers sales representative's request. ? Printed vaccine immunization sheet(s) provi ded to patient. documented in this encounter Plan of Treatment Not on file documented as of this encounter Visit Diagnoses Diagnosis Routine general medical examination at a health care facility Need for prophylactic vaccination and inoculation against influenza documented in this encounter Care Teams Cnc Lathe Programmer Relationship Specialty Start Date End Date Jorje Celis MD [address] [place] [address] PCP - General 05/19/14 documented as of this encounter
--- OUTSIDE RECORDS SUMMARY | 2024-05-29 16:20 | XMS_ITS | Encounter Summary ---
Author Organization [facility] Address [address] [place] [address] Care Team Providers Care Radio Television Technical Director Name Role Phone Santosh Celis MD Primary Care Provider [phone] Reason for Visit * Reason Comments Other Provider RUTH VEGA OD (Doct or of Optometry,Visual Services A-[id number]) [facility] ([id number]) Encounter Details Date Type Department Care Team (Late st Contact Info) Description 05/05/2008 Office Visit [facility] Visual Services [address] [place] [phone] Ruth Vega, JON Blepharitis, Unspecified Social History Tobacco Use Types Packs/Day Years Used Date Smoking Tobacco: Never Assessed Comments Unknown Sex and Gender Information Value Date Recorded Sex Assigned at Not on file Legal Sex Female 9:02 PM EST Gender Identity Not on file Sexual Orientation Not on file documented as of this encounter Progress Notes * Ruth Vega, JON - 05/05/2008 11:45 AM EST Lower right lid is swollen and some discharge last night. Wears cl but not today Vision c glasses OD 20/15 OS 2020 Pupils: PERRLA no APD External: WNL Mot or nursing Biomicroscopy: Lids OD crusting on lashes inferior more than superior, no sign of sty not tender to touch OS mild crusitng Conj OD clear white OS clear Cornea OD clear OS clear Iris OD normal OS normal A.C. OD quiet OS quiet Angle OD open OS open Lens OD clear OS clear Assessment: Blepahritis R>L Erythromycin jaime bid OD x 10 days after lid scrubs and then as needed RTC: prn Recorded by Ruth Vega OD on 05/05/2008 documented in this encounter Plan of Treatment Not on file documented as of this encounter Visit Diagnoses Diagnosis Blepharitis, unspecified documented in this encounter Care Teams Radio Television Technical Director Relationship Specialty Start Date End Date Santosh Celis MD [address] [place] [address] PCP - General 05/19/14 documented as of this encounter
--- OUTSIDE RECORDS SUMMARY | 2024-05-29 16:20 | XMS_ITS | Encounter Summary ---
Author Organization [facility] Address [address] [place] [address] Care Team Providers Care Post Production Assistant Name Role Phone Santosh Celis MD Primary Care Provider [phone] Reason for Visit * Reason Comments Other Provider SIENNA BENDER RN (Re gistered Nurse,Internal Medicine [id number]) [facility] Adult Medicine ([id number]) Encounter Details Date Type Department Care Team ([facility] Contact Info) Description 08/01/2013 Telephone [facility] Adult Medicine [address] [place] [phone] Génesis Bender RN [facility] [address] [phone] Other ; Provider (SIENNA BENDER RN (Registered Nurse,Internal Medicine [id number]) [facility] ([id number])) Social History Tobacco Use Types Packs/Day Years Used Date Smoking Tobacco: Never Assessed Comments Unknown Sex and Gender Information Value Date Recorded Sex Assigned at Not on file Legal Sex Female 9:02 PM EST Gender Identity Not on file Sexual Orientation Not on file documented as of this encounter Miscellaneous Notes * Telephone Encounter - Génesis Bender RN - 08/01/2013 2:52 PM EST Fátima Tomlin is a 32 yrs. female who complains of a sore throat and fever, she had a throat culture done yesterday and it was negative. She said that her had strep last week. She thinks she came in too soon for test, she had no fever yesterday and her throat did not look as bad as it does now. Pt scheduled a same day appointment. documented in this encounter Plan of Treatment Not on file documented as of this encounter Visit Diagnoses Not on filedocumented in this encounter Care Teams Post Production Assistant Relationship Specialty Start Date End Date Santosh Celis MD [address] [place] [address] PCP - General 05/19/14 documented as of this encounter
--- OUTSIDE RECORDS SUMMARY | 2024-05-29 16:20 | XMS_ITS | Encounter Summary ---
Author Organization [facility] Address [address] [place] [address] Care Team Providers Care Central Office Trouble Shooter Name Role Phone Jorje Rivera MD Primary Care Provider Reason for Visit * Reason Comments Other Provider JORJE RIVERA MD ([facility] Doctor,Internal Medicine [id number]) [facility] Medicine ([id number]) Encounter Details Date Type Department Care Team (Late st Contact Info) Description 07/13/2013 Letter/Form [facility] [address] [place] [phone] Jorje Rivera MD [address] [place] [address] Social History Tobacco Use Types Packs/Day Years Used Date Smoking Tobacco: Never Assessed Comments Unknown Sex and Gender Information Value Date Recorded Sex Assigned at Not on file Legal Sex Female 9:02 PM EST Gender Identity Not on file Sexual Orientation Not on file documented as of this encounter Miscellaneous Notes * Letter - Jorje Rivera - 07/12/2013 7:00 PM EST Fátima Tomlin July 13, 2013 11 [facility] [address] Dear Fátima Tomlin: Patient Number: [id number] We are looking forward to seeing you for your complete physical examination which is scheduled for Future Appointments Date Time Provider Department Center 08/05/2013 3:15 PM Jorje Rivera MD [facility] Your visit is scheduled at our [facility] office, [address] [place] [address] Adult Medicine Department. . Please fill out [...] Sincerely, The Office of Jorje Rivera MD [employer] FREE ONLINE FEATURE: MyHealth Online MyHealth [...] and much more! To sign up for [employer]: Visit [email or web address] or [email or web address] To ensure that you receive a response, please add [email or web address] to your address book or safe-sender list. Current Outpatient Prescriptions: OCELLA 3 MG-0.03 MG TAB (ETHINYL ESTRADIOL/DROSPIRENONE) one tab po daily documented in this encounter Plan of Treatment Not on file documented as of this encounter Visit Diagnoses Not on filedocumented in this encounter Care Teams Central Office Trouble Shooter Relationship Specialty Start Date End Date Jorje Rivera MD [address] [place] [address] PCP - General 05/19/14 documented as of this encounter
--- OUTSIDE RECORDS SUMMARY | 2024-05-29 16:20 | XMS_ITS | Encounter Summary ---
Author Organization [facility] Address [address] [place] [id number] Care Team Providers Care Plater Production Name Role Phone Jorje Celis MD Primary Care Provider [phone] Reason for Visit * Reason Comments CPE/Physical Provider JORJE CELIS MD ([facility] Doctor,Internal Medicine [id number]) [facility] Adult Medicine ([id number]) Encounter Details Date Type Department Care Team (Latest Contact Info) Description 05/08/2009 CPE - Comprehensive Physical Exam [facility] Adult Medicine [address] [place] [phone] Jorje Celis MD [address] [place] [phone] Routine General Medical Examination at a Health Care Facility; Underweight; Need for Prophylactic Vaccination with Tetanus-Diphtheria (TD) Social History Tobacco Use Types Packs/Day Years Used Date Smoking Tobacco: Never Assessed Comments Unknown Sex and Gender Information Value Date Recorded Sex Assigned at Not on file Legal Sex Female 9:02 PM EST Gender Identity Not on file Sexual Orientation Not on file documented as of this encounter Last Filed Vital Signs Vital Sign Reading Time Taken Comments Blood Pressure 110/64 05/08/2009 11:15 AM EST Pulse 84 05/08/2009 11:15 AM EST Temperature - - Respiratory Rate - - Oxygen Saturation - - Inhaled Oxygen Concentration - - Weight 54 kg (119 lb) 05/08/2009 11:15 AM EST Height 166.4 cm (5' 5.5) 05/08/2009 11:15 AM ES T Body Mass Index 19.5 05/08/2009 11:15 AM EST documented in this encounter Progress Notes * Jorje Celis - 05/08/2009 1:01 PM EST 28 yo woman here for CPE. She is generally well. No regular exercise. Past Medical History: NO SIGNIF MEDICAL HX Past Surgical History: labrum repair [Other] 1999 Comments: left shoulder REPAIR BICEPS LONG TENDON 2001 Comments: left arm TONSILLECTOMY & ADENOIDECTOMY 1987 No Known Allergies. Current outpatient prescriptions: OCELLA 3 MG-0.03 MG TAB (ETHINYL ESTRADIOL/DROSPIRENONE) one tab po daily History Social History Narrative to Tuan, also dr celis's patient. Gave to Binh on 12/16/06. Never smoked. No alcohol. 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 Family Medical History: Hypertension Mother No Significant [...] breast pain, or nipple discharge. Exam: BP 110/64 Pulse 84 Ht 5' 5.5 (1.664 m) Wt 119 lb (53.978 kg) LMP 03/17/2009 The physical exam is generally normal. ENT normal, neck supple and free of adenopathy or masses. Nothyromegaly or carotid bruits. Cranial nerves and fundi normal. Chest is clear to IPPA. Heart sounds are normal, no murmurs, clicks, gallops, or rubs. Abdomen is soft, no tenderness, masses, or organomegaly. Extremities, peripheral pulses, and reflexes are normal. Imp: Health maintenance Plan: Cbc,cmp,lipids Tdap and H1N1 vaccine given Diet/exercise discussed including adequate calcium intake Vp Purchasing care up to date and as per Dr Jeff Dental/vision exam up to date Seatbelt use encouraged Advance directives/hcp info discussed * Debbie Acevedo - 05/08/2009 12:18 PM EST Tdap and h1n1 given Vis reviewed and consent form signed documented in this encounter Plan of Treatment Not on file documented as of this encounter Procedures * Due to [facility] law, this organization might not be sharing negative HIV tests. Procedure Name Priority Date/Time Associated Diagnosis Comments LIPID PROFILE Routine 08/13/2009 12:00 AM EDT COMPREHENSIVE METABOLIC PROFILE Routine 08/13/2009 12:00 AM EDT HEMOGRAM (CBC) W AUTO DIFF RFLX MAN DIFF Routine 08/13/2009 12:00 AM EDT documented in this encounter Results * Due to [facility] law, this organization might not be sharing negative HIV tests. * COMPREHENSIVE METABOLIC PROFILE (08/13/2009 12:00 AM EDT) Glucose 85 65 - 99 mg/dL 08/13/2009 3:36 PM EDT [facility] Urea Nitrogen Blood (BUN) 12 7 - 25 MG/DL 08/13/2009 3:36 PM EDT [facility] Creatinine 0.8 0.5 - 1.3 MG/DL 08/13/2009 3:36 PM EDT [facility] BUN/Creatinine Ratio 15 6 - 25 RATIO 08/13/2009 3:36 PM EDT [facility] Sodium 142 135 - 148 MEQ/L 08/13/2009 3:36 PM EDT [facility] Potassium 3.9 3.5 - 5.3 MEQ/L 08/13/2009 3:36 PM EDT [facility] Chloride 103 98 - 110 MEQ/L 08/13/2009 3:36 PM EDT [facility] Calcium 9.1 8.5 - 10.4 MG/DL 08/13/2009 3:36 PM EDT [facility] Protein Total (Serum) 7.3 6.0 - 8.3 G/DL 08/13/2009 3:36 PM EDT [facility] Albumin 4.4 3.5 - 4.9 G/DL 08/13/2009 3:36 PM EDT [facility] Globulin 3 2 - 4 G/DL 08/13/2009 3:36 PM EDT [facility] A/G Ratio 1.5 0.8 - 2.0 (CALC) 08/13/2009 3:36 PM EDT [facility] Bilirubin, Total 0.4 0.2 - 1.5 MG/DL 08/13/2009 3:36 PM EDT [facility] Alkaline Phosphatase 63 33 - 130 U/L 08/13/2009 3:36 PM EDT [facility] AST (SGOT) 22 14 - 36 U/L 08/13/2009 3:36 PM EDT [facility] Carbon Dioxide 28 21 - 33 MEQ/L 08/13/2009 3:36 PM EDT [facility] ALT (SGPT) 16 9 - 52 U/L 08/13/2009 3:36 PM EDT [facility] 08/13/2009 08/13/2009 Jorje Celis MD LABORATORY Final Result Performing Organization Address [facility]/ZIP Co de Phone Number [facility] * (ABNORMAL) LIPID PROFILE (08/13/2009 12:00 AM EDT) [facility] Cholesterol 151 100 - 199 MG/DL 08/13/2009 3:36 PM EDT [facility] Triglyceride 59 30 - 149 MG/DL 08/13/2009 3:36 PM EDT [facility] Cholesterol.in HDL 82(H) 40 - 77 MG/DL 08/13/2009 3:36 PM EDT [facility] LDL 57(L) 62 - 130 MG/DL 08/13/2009 3:36 PM EDT [facility] Chol/HDL Ratio 2 0 - 5 CALC 08/13/2009 3:36 PM EDT [facility] 08/13/2009 08/13/2009 Jorje Celis MD LABORATORY Final Result [facility] * (ABNORMAL) HEMOGRAM (CBC) W AUTO DIFF RFLX MAN DIFF (08/13/2009 12:00 AM EDT) [facility] Leukocytes 5.2 3.8 - 10.8 K/uL 08/13/2009 4:44 PM EDT [facility] Neutrophils # 2.9(L) 3.3 - 6.3 K/uL 08/13/2009 4:44 PM EDT [facility] Lymphocytes # 2.0 0.9 - 3.9 K/uL 08/13/2009 4:44 PM EDT [facility] Monocytes # 0.3 0.2 - 1.0 K/uL 08/13/2009 4:44 PM EDT [facility] Eosinophils # 0.0 0.0 - 0.2 K/uL 08/13/2009 4:44 PM EDT [facility] Basophils # 0.0 0.0 - 0.2 K/uL 08/13/2009 4:44 PM EDT [facility] Neutrophils % 54.9 48.0 - 77.7 % 08/13/2009 4:44 PM EDT [facility] Lymphocytes % 38.5(H) 10.0 - 38.0 % 08/13/2009 4:44 PM EDT [facility] Monocytes/100 Leukocytes 4.8 0.0 - 14.0 % 08/13/2009 4:44 PM EDT [facility] Eosinophils/100 leukocytes 0.9 0.0 - 5.0 % 08/13/2009 4:44 PM EDT [facility] Basophils/100 leukocytes 0.8 0.0 - 3.0 % 08/13/2009 4:44 PM EDT [facility] Erythrocytes 4.53 3.80 - 5.10 M/uL 08/13/2009 4:44 PM EDT [facility] Hemoglobin 13.9 11.7 - 15.5 g/dL 08/13/2009 4:44 PM EDT [facility] Hematocrit 40.6 35.0 - 45.0 % 08/13/2009 4:44 PM EDT [facility] Mean Corpuscular Volume 89.5 80.0 - 100.0 fl 08/13/2009 4:44 PM EDT [facility] Mean Corpuscular Hemoglobin 30.8 27.0 - 33.0 pg 08/13/2009 4:44 PM EDT [facility] Mean Corpuscular Hemoglobin Conc 34.4 32.0 - 36.0 % 08/13/2009 4:44 PM EDT [facility] RDW 11.3 11.0 - 15.0 % 08/13/2009 4:44 PM EDT [facility] Platelets 214 140 - 400 K/uL 08/13/2009 4:44 PM EDT [facility] 08/13/2009 08/13/2009 us Jorje Celis MD LABORATORY Final Result [facility] documented in this encounter Visit Diagnoses Diagnosis Routine general medical examination at a health care facility Underweight Need for prophylactic vaccination with tetanus-diphtheria (Td) documented in this encounter Care Teams Plater Production Relationship Specialty Start Date End Date Jorje Celis MD [address] [place] [address] PCP - General 05/19/14 documented as of this encounter
--- OUTSIDE RECORDS SUMMARY | 2024-05-29 16:20 | XMS_ITS | Encounter Summary ---
Author Organization [facility] Address [address] [place] [address] Care Team Providers Care Scada Engineer Name Role Phone Jorje Uribe MD Primary Care Provider [phone] Reason for Visit * Reason Comments Cough sx for one week Provider JORJE URIBE MD ([facility] Doctor,Internal Medicine [id number]) [facility] Adult Medicine ([id number]) Encounter Details Date Type Department Care Team (Late st Contact Info) Description 09/04/2008 Office Visit [facility] Adult Medicine [address] [place] [phone] Jorje Uribe MD [address] [place] [address] Acute Maxillary Sinusitis Social History Tobacco Use Types Packs/Day Years Used Date Smoking Tobacco: Never Assessed Comments Unknown Sex and Gender Information Value Date Recorded Sex Assigned at Not on file Legal Sex Female 9:02 PM EST Gender Identity Not on file Sexual Orientation Not on file documented as of this encounter Last Filed Vital Signs Vital Sign Reading Time Taken Comments Blood Pressure 104/64 09/04/2008 10:45 AM EDT Pulse 74 09/04/2008 10:45 AM EDT Temperature 36.6 ??C (97.9 ??F) 09/04/2008 10:45 AM E DT Respiratory Rate - - Oxygen Saturation 99% 09/04/2008 10:45 AM EDT Inhaled Oxygen Concentration - - Weight 54.9 kg (121 lb) 09/04/2008 10:45 AM EDT Height - - Body Mass Index 20.14 04/06/2008 8:30 AM EST documented in this encounter Progress Notes * Jorje Uribe - 09/04/2008 11:03 AM EDT 27 yo woman with sinus pressure. Started 10 days ago with rhinorhea and nasal congestion and temp to 100. These sx improved for 2 days then came back as b/l maxillary/frontal sinus pain. Cough produces yellow phlegm. No sore throat. No otalgia. No dyspnea. Upper teeth hurt. Minimal relief w/ sudafed. No Known Allergies. Current outpatient prescriptions prior to encounter: OCELLA 3 MG-0.03 MG TAB (ETHINYL ESTRADIOL/DROSPIRENONE), one tab po daily Social History Narrative to Tuan, also dr uribe's patient. Gave to Binh on 12/16/06. Never smoked. No alcohol. 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 Exam: BP 104/64 Pulse 74 Temp (Src) 97.9 ?F (36.6 ?C) (Oral) Wt 121 lb (54.885 kg) SpO2 99% Nad No cervical lad Oropharynx and tm's normal Reg hr no rmg Clear lungs b/l Imp: Acute bacterial maxillary sinusitis after viral uri Plan: Augmentin bid for 10 days -use barrier form of contraception on abx Prn advil, tylenol, sudafed and steam Call if new/worsening sx or no relief in 3 days documented in this encounter Plan of Treatment Not on file documented as of this encounter Visit Diagnoses Diagnosis Acute maxillary sinusitis documented in this encounter Care Teams Scada Engineer Relationship Specialty Start Date End Date Jorje Uribe MD [address] [place] [address] PCP - General 05/19/14 documented as of this encounter
--- OUTSIDE RECORDS SUMMARY | 2024-05-29 16:20 | XMS_ITS | Encounter Summary ---
Author Organization [facility] Address [address] [place] [address] Care Team Providers Care Nuclear Medicine Technologist Name Role Phone Jorje Celis MD Primary Care Provider [phone] Reason for Visit * Reason Comments Other PERTUSSIS VACCINE Provider JORJE CELIS MD ([facility] Doctor,Internal Medicine [id number]) [facility] Adult Medicine ([id number]) Encounter Details Date Type Department Care Team ([facility] Contact Info) Description 09/01/2011 Telephone [facility] Adult Medicine [address] [place] [phone] Jorje Celis MD [address] [place] [phone] Other (PERTUSSIS VACCINE); Provider (JORJE CELIS MD (Medical Doctor,Internal Medicine [id number]) [facility] ([id number])) Social History Tobacco Use Types Packs/Day Years Used Date Smoking Tobacco: Never Assessed Comments Unknown Sex and Gender Information Value Date Recorded Sex Assigned at Not on file Legal Sex Female 9:02 PM EST Gender Identity Not on file Sexual Orientation Not on file documented as of this encounter Miscellaneous Notes * Telephone Encounter - Jorje Celis - 09/01/2011 9:49 AM EDT Patient given date of last tdap * Telephone Encounter - Jorje Celis - 09/01/2011 9:29 AM EDT Pt is calling to know if she had pertussis vaccine back in 2009. * Telephone Encounter - Debbie Acevedo - 09/01/2011 12:00 AM EDT Contacts Type Contact Phone 09/01/2011 09:48 AM Telephone (Outgoing) Fátima Tomlin (Self) [phone] (H) documented in this encounter Plan of Treatment Not on file documented as of this encounter Visit Diagnoses Not on filedocumented in this encounter Care Teams Nuclear Medicine Technologist Relationship Specialty Start Date End Date Jorje Celis MD [address] [place] [address] PCP - General 05/19/14 documented as of this encounter
--- OUTSIDE RECORDS SUMMARY | 2024-05-29 16:20 | XMS_ITS | Encounter Summary ---
Author Organization [facility] Address [address] [place] [address] Care Team Providers Care Commercial Banker Name Role Phone Santosh Celis MD Primary Care Provider [phone] Reason for Visit * Reason Comments Other Provider DARWIN ENRIQUE (Medical Doctor,Outside [id number]) OUTSIDE DEPARTMENT (AD-[id number]) Encounter Details Date Type Department Care Team ([facility] st Contact Info) Description 12/10/2011 Letter/Form NON FC SA NON FC UNK Darwin Enrique [address] [phone] Cellulitis and abscess of upper arm and forearm Social History Tobacco Use Types Packs/Day Years [...] Visit Diagnoses Diagnosis Cellulitis and abscess of upper arm and forearm documented in this encounter Care Teams Commercial Banker Relationship Specialty Start Date End Date Santosh Celis MD [address] [place] [address] PCP - General 05/19/14 documented as of this encounter
--- OUTSIDE RECORDS SUMMARY | 2024-05-29 16:20 | XMS_ITS | Encounter Summary ---
Author Organization [facility] Address [address] [place] [address] Care Team Providers Care Boiler Shop Mechanic Name Role Phone Jorje Rivera MD Primary Care Provider Reason for Visit * Reason Comments Other Provider JORJE RIVERA MD ([facility] Doctor,Lab [id number]) [facility] ([id number]) Encounter Details Date Type Department Care Team (Late st Contact Info) Description 04/06/2008 Orders Only [facility] [address] [place] [phone] Jorje Rivera MD [address] [place] [phone] Social History Tobacco Use Types Packs/Day Years [...] facility documented in this encounter Care Teams Boiler Shop Mechanic Relationship Specialty Start Date End Date Jorje Rivera MD [address] [place] [address] PCP - General 05/19/14 documented as of this encounter
--- OUTSIDE RECORDS SUMMARY | 2024-05-29 16:20 | XMS_ITS | Encounter Summary ---
Author Organization [facility] Address [address] [place] [address] Care Team Providers Care Chemical Processing Technician Name Role Phone Santosh Celis MD Primary Care Provider [phone] Reason for Visit * Reason Comments Other Provider OUTSIDE PROVIDER (Or dical Records [id number]) [facility] Medical Records ([id number]) Encounter Details Date Type Department Care Team (Latest Contact Info) Description 03/14/2010 Orders Only NON FC SA FC UNK Unknown Pcp, Non Rmg Social History Tobacco Use Types Packs/Day Years Used Date Smoking Tobacco: Never Assessed Comments Unknown Sex and Gender Information Value Date Recorded Sex Assigned at Not on file Legal Sex Female 9:02 PM EST Gender Identity Not on file Sexual Orientation Not on file documented as of this encounter Procedure Notes * Provider, Unknown - 11/27/2014 12:00 AM EDTAssociated Order(s): MRI LEFT KNEE W/O CONTRAST documented in this encounter Plan of Treatment Not on file documented as of this encounter Procedures * Due to [place] state law, this organization might not be sharing negative HIV tests. Procedure Name Priority Date/Time Associated Diagnosis Comments MRI LEFT KNEE W/O CONTRAST Routine 10/16/2006 12:00 AM EDT documented in this encounter Results * Due to [place] test company law, this organization might not be sharing negative HIV tests. * MRI LEFT KNEE W/O CONTRAST (10/16/2006 12:00 AM EDT) ATTACHED DOCUMENT 10/16/2006 12:00 AM EDT Anatomical Region Laterality Modality Other 10/16/2006 10/16/2006 Narrative Transcriptions Provider, Unknown - 11/27/2014 12:00 AM EDT us Non Rmg Unknown Pcp IMAGING-ATRIUS Final Result documented in this encounter Visit Diagnoses Diagnosis Other specified counseling documented in this encounter Care Teams Chemical Processing Technician Relationship Specialty Start Date End Date Santosh Celis MD [address] [place] [id number] PCP - General 05/19/14 documented as of this encounter
--- OUTSIDE RECORDS SUMMARY | 2024-05-29 16:20 | XMS_ITS | Encounter Summary ---
Author Organization [facility] Address [address] [place] [address] Care Team Providers Care Tin Can Feeder Name Role Phone Jorje Celis MD Primary Care Provider [phone] Reason for Visit * Reason Comments Sore Throat Provider JORJE CELIS MD ([facility] Doctor,Internal Medicine [id number]) [facility] ([id number]) Encounter Details Date Type Department Care Team ([facility] st Contact Info) Description 07/31/2013 Telephone [facility] [address] [place] [phone] Jorje Celis MD [address] [place] [address] Sore Throat; Provider (JORJE CELIS MD (Medical Doctor,Internal Medicine [id number]) [facility] Medicine ([id number])) Social History Tobacco Use Types Packs/Day Years Used Date Smoking Tobacco: Never Assessed Comments Unknown Sex and Gender Information Value Date Recorded Sex Assigned at Not on file Legal Sex Female 9:02 PM EST Gender Identity Not on file Sexual Orientation Not on file documented as of this encounter Miscellaneous Notes * Telephone Encounter - Lou Denney - 07/31/2013 1:55 PM EST Rapid strep was neg. Advised if pt continues to have symptoms, please call to be seen. * Telephone Encounter - Lou Denney - 07/31/2013 10:27 AM EST Pt wants a throat culture. 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 had strep throat last week and she has had a sore throat for 2 days. Afebrile. Pt no allergies, pharmacy verified. Rapid strep ordered. * Telephone Encounter - Marimar Hussein - 07/31/2013 10:04 AM EST Pt states sore throat x 2 days. was diagnosed with Strep earlier in week. Would like a throat culture. Please advise. * Telephone Encounter - Lou Denney - 07/31/2013 12:00 AM EST Contacts Type Contact Phone 07/31/2013 01:55 PM Telephone (Outgoing) Fátima Tomlin (Self) [phone] (H) documented in this encounter Plan of Treatment Not on file documented as of this encounter Procedures * Due to [place] [employer] law, this organization might not be sharing negative HIV tests. Procedure Name Priority Date/Time Associated Diagnosis Comments RAPID STREP LAB Routine 07/31/2013 10:58 AM EST documented in this encounter Results * Due to [place] [employer] law, this organization might not be sharing negative HIV tests. * RAPID STREP LAB (07/31/2013 10:58 AM EST) Streptococcus pyogenes Ag (Throat) Negative for Gr A NEG FOR GR. A STREP 07/31/2013 11:12 AM EST [facility] 07/31/2013 10:5 8 AM EST 07/31/2013 10:58 AM EST Narrative [facility] - 07/31/2013 12:00 AM EST Patient's primary care provider is: ??Jorje Celis Pharmacy to call if results are POSITIVE->[facility] ??Review of patient's allergies indicates no known allergies. Allergies: Source: us Jorje Celis MD LABORATORY Final Result [facility] documented in this encounter Visit Diagnoses Diagnosis Acute pharyngitis documented in this encounter Care Teams Tin Can Feeder Relationship Specialty Start Date End Date Jorje Celis MD [address] [place] [address] PCP - General 05/19/14 documented as of this encounter
--- OUTSIDE RECORDS SUMMARY | 2024-05-29 16:20 | XMS_ITS | Encounter Summary ---
Author Organization [facility] Address [address] [place] [address] Care Team Providers Care Butcher Apprentice Name Role Phone Santosh Celis MD Primary Care Provider [phone] Reason for Visit * Reason Onset Date Comments Referral Request 11/06/2014 Encounter Details Date Type Department Care Team ([facility] st Contact Info) Description 11/06/2014 Telephone [facility] Adult Medicine [address] [place] [phone] Santosh Celis MD [address] [place] [address] Referral Request Social History Tobacco Use Types Packs/Day Years Used Date Smoking Tobacco: Never Assessed Comments Unknown Sex and Gender Information Value Date Recorded Sex Assigned at Not on file Legal Sex Female 9:02 PM EST Gender Identity Not on file Sexual Orientation Not on file documented as of this encounter Miscellaneous Notes * Telephone Encounter - Debbie Acevedo - 11/06/2014 3:34 PM EDT Referral was placed on 10/29/2014 * Telephone Encounter - GeraldogriselandreynatalyRadha - INACTIVE - 11/06/2014 3:25 PM EDT Patient is requesting a referral to see: Dr. Henry Garcia This doctor is located: [facility] Patient would like to see this doctor for/because: left knee scope Patient has an appointment on: 11/07 The phone number to this doctor's office is: [phone] Please advise documented in this encounter Plan of Treatment Not on file documented as of this encounter Visit Diagnoses Not on filedocumented in this encounter Care Teams Butcher Apprentice Relationship Specialty Start Date End Date Santosh Celis MD [address] [place] [address] PCP - General 05/19/14 documented as of this encounter
--- OUTSIDE RECORDS SUMMARY | 2024-05-29 16:20 | XMS_ITS | Encounter Summary ---
Author Organization [facility] Address [address] [place] [address] Care Team Providers Care Cash Register Operator Name Role Phone Santosh Celis MD Primary Care Provider Encounter Details Date Type Department Care Team ([facility] st Contact Info) Description 11/29/2014 Letter/Form ORTHO SURG UNSPECIFIED Henry Garcia MD [address] [place] [phone] Social History Tobacco Use Types Packs/Day Years [...] as of this encounter Miscellaneous Notes * Other Forms - Henry Garcia MD - 12/13/2014 12:00 AM EDT documented in this encounter Plan of Treatment Not on file documented as of this encounter Visit Diagnoses Not on filedocumented in this encounter Care Teams Cash Register Operator Relationship Specialty Start Date End Date Santosh Celis MD [address] [place] [address] PCP - General 05/19/14 documented as of this encounter
--- OUTSIDE RECORDS SUMMARY | 2024-05-29 16:20 | XMS_ITS | Encounter Summary ---
Author Organization [facility] Address [address] [place] [address] Care Team Providers Care Histotechnologist Name Role Phone Santosh Celis MD Primary Care Provider [phone] Reason for Visit * Reason Comments Other Provider CINDI BUTCHER OD (Doctor of Optometry,Visual Services [id number]) [facility] Visual Services ([id number]) Encounter Details Date Type Department Care Team ([facility] st Contact Info) Description 07/25/2008 Abstract [facility] Services [address] [place] [phone] Cindi Butcher OD [address] [place] [phone] Social History Tobacco Use Types Packs/Day Years Used Date Smoking Tobacco: Never Assessed Comments Unknown Sex and Gender Information Value Date Recorded Sex Assigned at Not on file Legal Sex Female 9:02 PM EST Gender Identity Not on file Sexual Orientation Not on file documented as of this encounter Progress Notes * Katheryn Oneal - 07/25/2008 8:52 PM EST Ord cls ABB - 1 box ea eye. Charged 44x1 & 69x1 less 10% [place] disct to CC. Rodriguez documented in this encounter Plan of Treatment Not on file documented as of this encounter Visit Diagnoses Not on filedocumented in this encounter Care Teams Histotechnologist Relationship Specialty Start Date End Date Santosh Celis MD [address] [place] [address] PCP - General 05/19/14 documented as of this encounter
--- OUTSIDE RECORDS SUMMARY | 2024-05-29 16:20 | XMS_ITS | Encounter Summary ---
Author Organization [facility] Address [address] [place] [address] Care Team Providers Care Angledozer Operator Name Role Phone Santosh Celis MD Primary Care Provider [phone] Reason for Visit * Reason Comments Other Provider MEDICAL RECORDS (Med ical Records [id number]) [facility] Medical Records ([id number]) Encounter Details Date Type Department Care Team ([facility] Contact Info) Description 09/02/2011 Abstract NON FC SA FC UNK Provider, Unknown Other unknown and unspecified cause of morbidity or mortality Social History Tobacco Use Types Packs/Day Years Used Date Smoking Tobacco: Never Assessed Comments Unknown Sex and Gender Information Value Date Recorded Sex Assigned at Not on file Legal Sex Female 9:02 PM EST Gender Identity Not on file Sexual Orientation Not on file documented as of this encounter Progress Notes * Unknown Pcp, Non [facility] - 09/05/2011 12:40 PM EDT [facility] Notification of Preauthorization Decision documented in this encounter Plan of Treatment Not on file documented as of this encounter Visit Diagnoses Diagnosis Other unknown and unspecified cause of morbidity or mortality documented in this encounter Care Teams Angledozer Operator Relationship Specialty Start Date End Date Santosh Celis MD [address] [place] [address] PCP - General 05/19/14 documented as of this encounter
--- OUTSIDE RECORDS SUMMARY | 2024-05-29 16:20 | XMS_ITS | Encounter Summary ---
Author Organization [facility] Address [address] [place] [id number] Care Team Providers Care Historical Manuscripts Curator Name Role Phone Santosh Celis MD Primary Care Provider [phone] Reason for Visit * Reason Comments Fever x today Sore Throat x 3 days Provider TOM JAMES MD ( Medical Doctor,Internal Medicine [id number]) [facility] ([id number]) Encounter Details Date Type Department Care Team (Late st Contact Info) Description 08/01/2013 Office Visit [facility] [address] [place] [phone] Tom James MD [address] [place] [address] Streptococcal sore throat Social History Tobacco Use Types Packs/Day Years Used Date Smoking Tobacco: Never Assessed Comments Unknown Sex and Gender Information Value Date Recorded Sex Assigned at Not on file Legal Sex Female 9:02 PM EST Gender Identity Not on file Sexual Orientation Not on file documented as of this encounter Last Filed Vital Signs Vital Sign Reading Time Taken Comments Blood Pressure 102/66 08/01/2013 3:31 PM EST Pulse 100 08/01/2013 3:31 PM EST Temperature 37 ??C (98.6 ??F) 08/01/2013 3:31 PM EST Respiratory Rate - - Oxygen Saturation - - Inhaled Oxygen Concentration - - Weight - - Height - - Body Mass Index - - documented in this encounter Progress Notes * Tom James - 08/01/2013 3:39 PM EST Pt C/o sore throat and fever for 3 days , treated last week for strep pharyngitis , rapid strep negative last week No other complaints Rest of ros is negative Past Medical History Diagnosis Date ??? Tear of PCL (posterior cruciate ligament) of knee 1996 left knee; injured in gymnastics; treated with PT Social History: Tobacco & Alcohol Use Tobacco Use: Never Alcohol Use: No No Known Allergies. Current Outpatient Prescriptions on File Prior to Visit: OCELLA 3 MG-0.03 MG TAB (ETHINYL ESTRADIOL/DROSPIRENONE) one tab po daily Exam BP 102/66 Pulse 100 Temp(Src) 98.6 ??F (37 ??C) (Oral) LMP 07/05/2013 Ears normal. Throat and pharynx with erythema and exudate . Neck supple. Bilateral tender anterior cervical Adenopathies or masses in the neck or supraclavicular regions. A&P; ACUTE STREP PHARYNGITIS , will treat with augmentin atb can lessen effect of hormonal contraception method , needs barrier contraception during this cycle pt was intructed to change the tooth brush and tooth paste after 48 h on beeing on ATB , she is contagious for the first 24 hours on ATB documented in this encounter Plan of Treatment Not on file documented as of this encounter Visit Diagnoses Diagnosis Streptococcal sore throat documented in this encounter Care Teams Historical Manuscripts Curator Relationship Specialty Start Date End Date Santosh Celis MD [address] [place] [address] PCP - General 05/19/14 documented as of this encounter
--- OUTSIDE RECORDS SUMMARY | 2024-05-29 16:20 | XMS_ITS | Encounter Summary ---
Author Organization [facility] Address [address] [place] [address] Care Team Providers Care Air Tester Name Role Phone Santosh Celis MD Primary Care Provider [phone] TomerFrieda Unavailable Encounter Details Date Type Department Care Team (Late st Contact Info) Description 03/11/[address] [address] [facility], Unknown Provider Social History Tobacco Use Types [...] encounter Miscellaneous Notes * Telephone Encounter - [facility], Unknown Provider - 03/11/2022 11:16 AM EDT Telephone Encounter by GAUTAM Andrade at 03/11/2022 10:58 AM Author: GAUTAM Andrade Service: -- Author Type: Executive Steward Filed: 03/11/2022 11:15 AM Encounter Date: 03/11/2022 Status: Signed Pediatric Cns: GAUTAM Andrade (Executive Steward) ABUS Called [facility] [phone] spoke to Cindi. She stated no prior authorization is required. Goes towards deductible then covered 100% at the contracted rate. Copayment of $150.00 Reference #: [id number] Left message for patient to call back on 03/03/22 * Telephone Encounter - [facility], Unknown Provider - 03/11/2022 10:58 AM EDT Telephone Encounter by GAUTAM Andrade at 03/11/2022 10:57 AM Author: GAUTAM Andrade Service: -- Author Type: Executive Steward Filed: 03/11/2022 10:57 AM Encounter Date: 03/11/2022 Status: Signed Pediatric Cns: GAUTAM Andrade (Executive Steward) ----- Message from Frieda Jeff MD sent at 03/02/2022 4:02 PM EDT ----- Dense breasts by mammo--pls offer ABUS. Check insurance for coverage and let pt know. Book if she would like to pursue. Thank you. documented in this encounter Plan of Treatment Not on file documented as of this encounter Visit Diagnoses Not on filedocumented in this encounter Care Teams Air Tester Relationship Specialty Start Date End Date Santosh Celis MD [address] [place] [address] PCP - General 05/19/14 Frieda Jeff [address] [place] [address] continuing education instructor 08/20/17 documented as of this encounter
--- OUTSIDE RECORDS SUMMARY | 2024-05-29 16:20 | XMS_ITS | Encounter Summary ---
Author Organization [facility] Address [address] [place] [address] Care Team Providers Care Curriculum Development Coordinator Name Role Phone Santosh Celis MD Primary Care Provider [phone] Reason for Visit * Reason Comments Other Provider CINDI RICHARDS OD (Doctor of Optometry,Visual Services [id number]) [facility] Visual Services ([id number]) Encounter Details Date Type Department Care Team (Late st Contact Info) Description 10/07/2007 Abstract [facility] Visual Services [address] [place] [phone] Cindi Richards, OD [address] [place] [phone] Social History Tobacco Use Types Packs/Day Years Used Date Smoking Tobacco: Never Assessed Comments Unknown Sex and Gender Information Value Date Recorded Sex Assigned at Not on file Legal Sex Female 9:02 PM EST Gender Identity Not on file Sexual Orientation Not on file documented as of this encounter Progress Notes * Cindi Richards - 10/07/2007 3:16 PM EDT 39 x 1 62 x 1 Paid by 10% [place] documented in this encounter Plan of Treatment Not on file documented as of this encounter Visit Diagnoses Not on filedocumented in this encounter Care Teams Curriculum Development Coordinator Relationship Specialty Start Date End Date Santosh Celis MD [address] [place] [id number] PCP - General 05/19/14 documented as of this encounter
--- OUTSIDE RECORDS SUMMARY | 2024-05-29 16:20 | XMS_ITS | Encounter Summary ---
Author Organization [facility] Address [address] [place] [address] Care Team Providers Care Superintendent Overhead Distribution Name Role Phone Santosh Celis MD Primary Care Provider [phone] Encounter Details Date Type Department Care Team ([facility] st Contact Info) Description 09/02/2011 Letter/Form NON FC SA NON FC UNK Provider, Unknown Social History Tobacco Use Types Packs/Day Years Used Date Smoking Tobacco: Never Assessed Comments Unknown Sex and Gender Information Value Date Recorded Sex Assigned at Not on file Legal Sex Female 9:02 PM EST Gender Identity Not on file Sexual Orientation Not on file documented as of this encounter Miscellaneous Notes * Other Forms - Provider, Unknown - 03/03/2015 12:00 AM EDT documented in this encounter Plan of Treatment Not on file documented as of this encounter Visit Diagnoses Not on filedocumented in this encounter Care Teams Superintendent Overhead Distribution Relationship Specialty Start Date End Date Santosh Celis MD [address] [place] [address] PCP - General 05/19/14 documented as of this encounter
--- OUTSIDE RECORDS SUMMARY | 2024-05-29 16:21 | XMS_ITS | Encounter Summary ---
Author Organization [facility] Address [address] [place] [address] [place] [address] Care Team Providers Care Environmental Sampling Technician Name Role Phone Santosh Celis Md Primary Care Provider [phone] Reason for Visit * Reason Onset Date Comments Conjunctivitis 09/09/2007 returning call 09/09/2007 review encounter 09/16/2007 Encounter Details Date Type Department Care Team (Late st Contact Info) Description 09/09/2007 Telephone [facility] Medicine [address] [place] [phone] Santosh Celis MD [facility] [address] [place] [phone] CONJUNCTIVITIS Social History Tobacco Use Types Packs/Day Years Used Date Smoking Tobacco: Never Alcohol Use Standard Drinks/Week Comments No 0 (1 standard drink = 0.6 oz pur e alcohol) Comments No Sex and Gender Information Value Date Recorded Sex Assigned at Not on file Legal Sex Female 2:08 AM EDT Gender Identity Not on file Sexual Orientation Not on file documented as of this encounter Miscellaneous Notes * Telephone Encounter - 09/09/2007 11:59 PM EDT>> YESICA CAMEJO [facility] Sep 16, 2007 10:14 AM Please review, complete and close encounter. Thank you. >> HORACIO CELIS MD. [facility] Sep 09, 2007 11:17 AM Can treat w/ ciloxan. >> DEBBIE LEE [facility] Sep 09, 2007 11:06 AM No >> HORACIO CELIS MD. [facility] Sep 09, 2007 10:54 AM Is she ? >> DEBBIE LEE [facility] Sep 09, 2007 10:12 AM C/o discharge from eyes. No vision trouble. Children have had conjunctivitis. Can we treat. Pt advis ed to call back if not resolving >> KARLY DICKERSON [facility] Sep 09, 2007 10:04 AM Pt returning call to Debbie >> DEBBIE LEE [facility] Sep 09, 2007 9:53 AM Lmtcb at 1000 am >> YESICA CAMEJO [facility] Sep 09, 2007 9:20 AM Pt believes she has conjunctivitis documented in this encounter Plan of Treatment Not on file documented as of this encounter Visit Diagnoses Not on filedocumented in this encounter Care Teams Environmental Sampling Technician Relationship Specialty Start Date End Date Santosh Celis MD [facility] [address] [place] [phone] PCP - General 01/15/06 documented as of this encounter
--- OUTSIDE RECORDS SUMMARY | 2024-05-29 16:21 | XMS_ITS | Encounter Summary ---
Author Organization [facility] Address [address] [place] [address] [place] [address] Care Team Providers Care Field Naturalist Name Role Phone Santosh Celis Md Primary Care Provider Santosh Celis Md Unavailable Encounter Details Date Type Department Care Team (Late st Contact Info) Description 07/13/2013 Letter (Out) [facility] Medicine [address] [place] [phone] Santosh Celis MD [facility] [address] [place] [phone] Social History Tobacco Use Types Packs/Day Years [...] on filedocumented in this encounter Care Teams Field Naturalist Relationship Specialty Start Date End Date Santosh Celis MD [facility] [address] [place] [phone] PCP - General 01/15/06 Santosh Celis MD [facility] [address] [place] [phone] PCP - Payer 06/08/13 documented as of this encounter
--- OUTSIDE RECORDS SUMMARY | 2024-05-29 16:21 | XMS_ITS | Encounter Summary ---
Author Organization [facility] Address [address] [place] [address] [place] [address] Care Team Providers Care Auto Body Straightener Name Role Phone Santosh Celis Md Primary Care Provider [phone] Santosh Celis Md Unavailable Reason for Visit * Reason Comments Complete Physical Exam Encounter Details Date Type Department Care Team (Late st Contact Info) Description 09/13/2013 1:00 PM EDT Office Visit [facility] Adult Medicine [address] [place] [phone] Santosh Celis MD [facility] [address] [facility] [place] [phone] Physical exam, annual (Primary Dx); Family planning, BCP ( control pills) initial prescription Social History Tobacco Use Types Packs/Day Years [...] * Patient Instructions* Santosh Celis MD - 09/13/2013 1:28 PM EDT Labs today Keep up the good work! documented in this encounter Progress Notes * Santosh Celis MD - 09/13/2013 1:09 PM EDT 32 yo woman here for complete physical exam. Exercises 2-3 times per week. Sees Dr Frieda Jeff for powderman; had normal pap last Fall. Issues: Left [...] (as of 08/2013). Never smoked. No alcohol. 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 Family History Problem Relation Age of Onset [...] and reflexes are normal. Breast/gu deferred to powderman. Imp: Health maintenance Left knee pain, intermittent, may be early OA from prior injury OCP use Plan: Lipids, cmp Immunizations up to date Pap smear up to date and as per powderman Diet/exercise discussed Dental/vision/glaucoma exam up to date Advance directives/hcp info discussed documented in this encounter Plan of Treatment Not on file documented as of this encounter Procedures Procedure Name Priority Date/Time Associated Diagnosis Comments COMPREHENSIVE METABOLIC PROFILE W/GFR ([facility]) Routine 09/13/2013 1:35 PM EDT Physical exam, annual Family planning, BCP ( control pills) initial prescription LIPID PROFILE Routine 09/13/2013 1:35 PM EDT Physical exam, annual VENIPUNCTURE (OVER AGE 3) Routine 09/13/2013 1:35 PM EDT Physical exam, annual Family planning, BCP ( control pills) initial prescription documented in this encounter Results * VENIPUNCTURE (OVER AGE 3) (09/13/2013 1:35 PM EDT) BLOOD COLLECTION 0.00 Billing Only [facility] 09/13/2013 1:35 PM EDT 09/13/2013 1:35 PM EDT Narrative [facility] - 09/13/2013 1:35 PM EDT not fasting Patient's primary care provider is: ??Santosh Celis us Santosh Celis PROCEDURES Final Result Performing Organization Address City/[facility] [address]/ZIP Co de Phone Number [facility] [address] [place] [address] * COMPREHENSIVE METABOLIC PROFILE W/GFR ([facility]) (09/13/2013 1:35 PM EDT) [facility] GLUCOSE 83 65 - 99 mg/dl [facility] BUN 9 7 - 25 mg/dL [facility] CREATININE 0.86 0.50 - 1.16 mg/dL [facility] SODIUM 138 136 - 145 mmo/L [facility] POTASSIUM 3.5 3.5 - 5.3 mmol/L [facility] CHLORIDE 102 98 - 107 mmo/L [facility] CALCIUM 9.1 8.5 - 10.4 mg/dL [facility] TOTAL PROTEIN 7.2 6.0 - 8.3 g/dL [facility] ALBUMIN 4.6 3.5 - 5.2 g/dL [facility] GLOBULIN 3 2 - 4 G/DL [facility] BILIRUBIN TOTAL 0.32 0.20 - 1.50 mg/dL [facility] ALKALINE PHOSPHATASE 47 33 - 130 U/L [facility] SGOT (AST) 15 <38 U/L [facility] CARBON DIOXIDE 25 23 - 33 mmol/L [facility] SGPT (ALT) 9 <47 U/L [facility] EGFR 81 >60 ml/min [facility] Comment: For patients greater than 18 years of and and if the patient is , please multiply result by 1.210 Venous Draw 09/13/2013 1:35 PM EDT 09/13/2013 1:35 PM EDT Narrative [facility] - 09/13/2013 3:32 PM EDT not fasting Patient's primary care provider is: ??Santosh Celis us Santosh Celis GENERAL LAB Final Result Performing Organization Address City/[facility] [address]/ZIP Co de Phone Number [facility] [address] [place] [address] * LIPID PROFILE (09/13/2013 1:35 PM EDT) CHOLESTEROL 149 <200 mg/dL [facility] TRIGLYCERIDES 83 <150 mg/dL [facility] HDL 86 >40 mg/dL [facility] Comment: NCEP GUIDELINES Desireable >60 mg/dL Borderline 40-59 mg/dL ?? Undesirable <40 mg/dL LDL 47 <130 mg/dL [facility] CHOL/HDL RATIO 2 0 - 5 CALC [facility] Venous Draw 09/13/2013 1:35 PM EDT 09/13/2013 1:35 PM EDT Narrative [facility] - 09/13/2013 3:32 PM EDT not fasting Patient's primary care provider is: ??Santosh Celis us Santosh Celis GENERAL LAB Final Result [facility] [address] [place] [address] documented in this encounter Visit Diagnoses Diagnosis Physical exam, annual- Primary Routine general medical examination at a health care facility Family planning, BCP ( control pills) initial prescription General counseling for prescription of oral contraceptives documented in this encounter Care Teams Auto Body Straightener Relationship Specialty Start Date End Date Santosh Celis MD [facility] [address] [place] [phone] PCP - General 01/15/06 Santosh Celis MD [facility] [address] [place] [phone] PCP - Payer 06/08/13 documented as of this encounter
--- OUTSIDE RECORDS SUMMARY | 2024-05-29 16:21 | XMS_ITS | Encounter Summary ---
Author Organization [facility] Address [address] [place] [address] [place] [address] Care Team Providers Care Crop And Soil Scientist Name Role Phone Santosh Celis Md Primary Care Provider [phone] Reason for Visit * Reason Comments Upper Respiratory Infection Encounter Details Date Type Department Care Team (Late st Contact Info) Description 05/03/2009 1:45 PM EST Urgent Care [facility] Adult Medicine [address] [place] [phone] Tom Gonzalez MD [facility] [address] [place] [phone] Sinusitis Acute (Primary Dx) Social History Tobacco Use Types [...] Index - - documented in this encounter Ordered Prescriptions Prescription Sig Dispense Quantity Refills Last Filled Start Date End Date ZITHROMAX Z-SUSANNAH 250 MG TAB (AZITHROMYCIN)Cata cations:Sinusitis acute 2 tablets today, then 1 tablet daily for 4 days 6 0 05/03/2009 9 documented in this encounter Progress Notes * Tom Gonzalez MD - 05/03/2009 2:01 PM EST HPI pt [...] as of this encounter Visit Diagnoses Diagnosis Sinusitis acute- Primary Acute sinusitis, unspecified documented in this encounter Care Teams Crop And Soil Scientist Relationship Specialty Start Date End Date Santosh Celis MD [address] [phone] PCP - General 01/15/06 documented as of this encounter
--- OUTSIDE RECORDS SUMMARY | 2024-05-29 16:21 | XMS_ITS | Encounter Summary ---
Author Organization [facility] Address [address] [place] [address] [address] [place] [address] Care Team Providers Care Managed Services Consultant Name Role Phone Santosh Celis Md Primary Care Provider [phone] Encounter Details Date Type Department Care Team (Late st Contact Info) Description 07/21/2012 Telephone [facility] [address] [place] [phone] Melody Faustin LPN Social History Tobacco Use Types Packs/Day Years [...] on file documented as of this encounter Ordered Prescriptions Prescription Sig Dispense Quantity Refills Last Filled Start Date End Date Penicillin V Potassium 500 mg Oral tablet Take 1 tablet three times daily x 10 days until gone 30 Tab 0 07/21/2012 08/05/2012 documented in this encounter Miscellaneous Notes * Telephone Encounter - Melody Faustin LPN - 07/21/2012 11:48 AM EST Left message on machine to call back. * Telephone Encounter - Santosh Celis MD - 07/21/2012 11:31 AM EST Sent penicillin to [facility]. Finish entire course of antibiotics. Call if no improvement in 2 days * Telephone Encounter - Melody Faustin LPN - 07/21/2012 11:[address] Celis - Please Advise: Fátima Tomlin is a 31 yrs. female who complains of sore throat, fever and body aches for 2 days. Patient obtained a positive rapid strept from [facility] in [place]. Patient is requesting an Rx be prescribed. documented in this encounter Plan of Treatment Not on file documented as of this encounter Visit Diagnoses Not on filedocumented in this encounter Care Teams Managed Services Consultant Relationship Specialty Start Date End Date Santosh Celis MD [facility] [address] [phone] PCP - General 01/15/06 documented as of this encounter
--- OUTSIDE RECORDS SUMMARY | 2024-05-29 16:21 | XMS_ITS | Encounter Summary ---
Author Organization [facility] Address [address] [place] [address] [address] Care Team Providers Care Metal Riveting Machine Operator Name Role Phone Santosh Celis Md Primary Care Provider [phone] Santosh Celis Md Unavailable Reason for Referral * Specialty (1 Month) - Closed Specialty Diagnoses / Procedures Referred By Aysha jamil Referred To Contact Orthopedics Diagnoses Knee joint pain, left Santosh Celis MD Phone: tel: fax: Henry Garcia Phone: tel: fax: Referral ID Status Reason Start Date Expiration Date Visits Requested Visits Authorized [id number] Closed Strong Patient Preference 08/01/2014 08/02/2015 3 3 * Imaging (1 Month) - Closed Specialty Diagnoses / Procedures Referred By Aysha jamil Referred To Contact Diagnoses Knee joint pain, left Procedures LOWER EXT JOINT KNEE LEFT MRI W/O CONTRAST Left knee MRI w/o contrast Santosh Celis MD Phone: tel: fax: [address] [phone] Phone: tel: fax: Referral ID Status Reason Start Date Expiration Date Visits Re quested Visits Authorized [id number] Closed 08/01/2014 10/14/2014 1 1 Reason for Visit * Reason Comments Knee Pain left Encounter Details Date Type Department Care Team (Late st Contact Info) Description 08/01/2014 2:00 PM EST Office Visit [address] [phone] Santosh Celis MD [facility] [address] [facility] [place] [phone] Knee joint pain, left (Primary Dx) Social History Tobacco Use Types [...] * Patient Instructions* Santosh Celis MD - 08/01/2014 2:52 PM EST Referral Office: -knee mri -dr garcia documented in this encounter Progress Notes * Santosh Celis MD - 08/01/2014 2:45 PM EST 33 [...] left arm ? ? Tonsillectomy & adenoidectomy 1988 No Known Drug Allergies. Current Outpatient Prescriptions: OCELLA 3 MG-0.03 MG TAB (ETHINYL ESTRADIOL/DROSPIRENONE) one tab po daily Exam: BP 137/96 Pulse 86 nad Left knee: full range of motion w/o instability. Medial joint line tenderness is present. No effusion Imp: Left knee pain, possible medial meniscus tear Plan: Mri left knee Ortho referral documented in this encounter Plan of Treatment Scheduled Referrals Name Type Priority Associated Diagnoses Orde r Schedule REFERRAL TO ORTHOPEDICS REFERRAL/FUTURE Routine Knee joint pain, left Expected: 08/31/2014 (Approximate), Expires: 08/02/2015 documented as of this encounter Procedures Procedure Name Priority Date/Time Associated Diagnosis Comments LOWER EXT JOINT KNEE LEFT MR I W/O CONTRAST Routine 08/19/2014 Knee joint pain, left documented in this encounter Results * LOWER EXT JOINT KNEE LEFT MRI W/O CONTRAST (08/19/2014) Anatomical Region Laterality Modality Lower Extremity Other us Santosh Celis [facility] Final Result documented in this encounter Visit Diagnoses Diagnosis Knee joint pain, left- Primary documented in this encounter Care Teams Metal Riveting Machine Operator Relationship Specialty Start Date End Date Santosh Celis MD [facility] [address] [place] [phone] PCP - General 01/15/06 Santosh Celis MD [facility] [address] [place] [phone] PCP - Payer 06/08/13 documented as of this encounter
--- OUTSIDE RECORDS SUMMARY | 2024-05-29 16:21 | XMS_ITS | Encounter Summary ---
Author Organization [facility] Address [address] [place] [address] [address] [place] [address] Care Team Providers Care Tombstone Carver Name Role Phone Santosh Celis Md Primary Care Provider [phone] Encounter Details Date Type Department Care Team (Late st Contact Info) Description 05/05/2008 11:45 AM EST Office Visit [facility] [address] [place] [phone] Gary Georgina, OD [facility] [address] [place] [address] BLEPHARITIS, UNSPEC (Primary Dx) Social History Tobacco Use Types [...] Refills Last Filled Start Date End Date ERYTHROMYCIN 5 MG/G EYE OINTMENTIndication s:Blepharitis Apply to affected eye bid after lid scrubs 1 3 05/05/2008 9 documented in this encounter Progress Notes * Georgina Vega, OD - 05/05/2008 11:45 AM ESTLower right lid is swollen and some discharge [...] then as needed RTC: prn Recorded by Georgina Vega, OD on 05/05/2008 documented in this encounter Plan of Treatment Not on file documented as of this encounter Visit Diagnoses Diagnosis Blepharitis- Primary Blepharitis, unspecified documented in this encounter Care Teams Tombstone Carver Relationship Specialty Start Date End Date Santosh Celis MD [facility] [address] [place] [phone] PCP - General 01/15/06 documented as of this encounter
--- OUTSIDE RECORDS SUMMARY | 2024-05-29 16:21 | XMS_ITS | Encounter Summary ---
Author Organization [facility] Address [address] [place] [address] [place] [address] Care Team Providers Care Outpatient Surgery Rn Name Role Phone Santosh Celis Md Primary Care Provider Santosh Celis Md Unavailable Encounter Details Date Type Department Care Team (Late st Contact Info) Description 08/09/[address] [phone] Santosh Celis MD [facility] [address] [place] [phone] Diagnosis Deferred (Primary Dx) Social History Tobacco Use Types [...] as of this encounter Visit Diagnoses Diagnosis Diagnosis deferred- Primary Other unknown and unspecified cause of morbidity or mortality documented in this encounter Care Teams Outpatient Surgery Rn Relationship Specialty Start Date End Date Santosh Celis MD [facility] [address] [place] [phone] PCP - General 01/15/06 Santosh Celis MD [facility] [address] [place] [phone] PCP - Payer 06/08/13 documented as of this encounter
--- OUTSIDE RECORDS SUMMARY | 2024-05-29 16:21 | XMS_ITS | Encounter Summary ---
Author Organization [facility] Address [address] [facility] [address] [place] [address] Care Team Providers Care Import/Export Freight Forwarder Name Role Phone Santosh Celis Md Primary Care Provider [phone] Encounter Details Date Type Department Care Team (Late st Contact Info) Description 09/18/2007 11:45 AM EDT Urgent Care [facility] [address] [place] [phone] Baldo Del Cid MD [facility] [address] [place] [address] [address] [place] [phone] PHARYNGITIS (Primary Dx) Social History Tobacco Use Types [...] as of this encounter Progress Notes * 09/18/2007 11:45 AM EDTCold sx No f/c/sob Now right tonsillar lump Temp 98 ??F (36.7 ??C) Chest cta Ears nl Right tonsillar minimal amount of exsudate 462 PHARYNGITIS (primary encounter diagnosis) Note: mild, porb viral documented in this encounter Plan of Treatment Not on file documented as of this encounter Visit Diagnoses Diagnosis Pharyngitis- Primary Acute pharyngitis documented in this encounter Care Teams Import/Export Freight Forwarder Relationship Specialty Start Date End Date Santosh Celis MD [facility] [address] [place] [phone] PCP - General 01/15/06 documented as of this encounter
--- OUTSIDE RECORDS SUMMARY | 2024-05-29 16:21 | XMS_ITS | Encounter Summary ---
Author Organization [facility] Address [address] [place] [address] [place] [address] Care Team Providers Care Mailroom Personnel Name Role Phone Santosh Uribe Md Primary Care Provider [phone] Reason for Visit * Reason Comments Female Physical Exam Encounter Details Date Type Department Care Team (Late st Contact Info) Description 03/30/2007 10:00 AM EDT Office Visit [address] [phone] Santosh Uribe MD [facility] [address] [place] [phone] PHYSICAL EXAM (Primary Dx); IMMUNIZATION - INFLUENZA Social History Tobacco Use Types Packs/Day Years [...] Reading Time Taken Comments Blood Pressure 112/78 03/30/2007 10:00 AM EDT Pulse 90 03/30/2007 10:00 AM EDT Temperature - - Respiratory Rate - - Oxygen Saturation - - Inhaled Oxygen Concentration - - Weight 56.7 kg (125 lb) 03/30/2007 10:00 AM EDT Height 170.2 cm (5' 7) 03/30/2007 10:00 AM EDT Body Mass Index 19.58 03/30/2007 10:00 AM EDT documented in this encounter Progress Notes * 03/30/2007 10:00 AM EDT Fátima Tomlin is a 26 yrs. old female here for a physical exam. Current issues include: Gave to Binh on December 16, 2006. REVIEW OF SYSTEMS GENERAL: No fever, sweats, fatigue, or weight change. SKIN: negative with no recent rashes EYES: negative with no complaints of dry irritated eyes ENT: negative with no mouth dryness or sores ENDO: negative with no hypothyroid symptoms HEME: negative with no history of anemia or DVT CV: negative without exertional chest pain, palpitations, or edema RESP: negative without cough, dyspnea or pleuritic pain GI: negative without ulcers, bleeding or frequent reflux : negative without dysuria, frequency, or nocturia NEURO: negative, with stable gait and no numbness or tingling of the hands or feet MUSCULOSKELETAL: negative without swollen painful joints, myalgias or weakness PSYCH: negative MEDICAL HISTORY - There is no previous medical history on file. SURGICAL HISTORY - Past Surgical History: labrum repair [Other] 1999 Comments: left shoulder REPAIR BICEPS LONG TENDON 2001 Comments: left arm TONSILLECTOMY & ADENOIDECTOMY 1988 Current outpatient prescriptions: MICRONOR TABLET 0.35MG PO (NORETHINDRONE) 1 TAB PO QDay No Known Allergies. Social History Narrative . also dr uribe's patient. Gave to Binh on 12/16/06. Nonsmoker. No alcohol. 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 FAMILY HISTORY - Family Medical History: No Significant Family History Mother No Significant Family History Father No Significant Family History Brother Cancer - Breast Maternal Grandmother Comment: late 40's Family Status Mother Alive Father Alive Brother Alive Exam: Vital signs as above. Body Mass Index is 19.62 It is based on height of 5' 7 and weight of 125 lbs on 03/30/2007. Skin: no suspicious lesions noted. Eyes: PERRLA, EOM intact, fundi normal. Ears: TMs clear. Pharynx: no lesions or exudate. Neck: supple, without JVD, adenopathy or thyromegaly Chest: clear to auscultation. Breasts: deferred to multiple games dealer Cardiac: regular rhythm without murmurs or gallops. Abdomen: bowel sounds normal, soft, without tenderness, masses or organomegaly. Business Division Chair: exam to be done in Gynecology. Rectal: will be done in Gynecology. Extremities: no clubbing, cyanosis, or edema; pulses normal. Neuro: non-focal. Assessment: Healthy female CPE Plan: Check lipid, bmp- patient was about 2 hrs postprandial Adequate calcium intake discussed Age appropriate safety measures discusses Business Division Chair per dr. Jeff Flu vaccine given documented in this encounter Plan of Treatment Not on file documented as of this encounter Procedures Procedure Name Priority Date/Time Associated Diagnosis Comments LIPID PROFILE Routine 03/30/2007 3:08 PM EDT PHYSICAL EXAM IMMUNIZATION - INFLUENZA BASIC METABOLIC PROFILE Routine 03/30/2007 3:08 PM EDT PHYSICAL EXAM IMMUNIZATION - INFLUENZA documented in this encounter Results * (ABNORMAL) LIPID PROFILE (03/30/2007 3:08 PM EDT) Pathologist [facility] CHOLESTEROL 143 100 - 199 MG/DL [facility] TRIGLYCERIDES 35 30 - 149 MG/DL [facility] HDL 89(H) 40 - 77 MG/DL [facility] LDL 47(L) 62 - 130 MG/DL [facility] CHOL/HDL RATIO 2 0 - 5 CALC [facility] Venous Draw 03/30/2007 3:08 PM EDT 03/30/2007 3:08 PM EDT Narrative [facility] - 03/30/2007 4:09 PM EDT Patient's primary care provider is: ??Santosh Uribe us Santosh Uribe GENERAL LAB Edited [facility] [address] [place] [address] * BASIC METABOLIC PANEL (03/30/2007 3:08 PM EDT) Pathologist [facility] GLUCOSE FASTING 72 65 - 99 mg/dL [facility] BUN 14 7 - 25 MG/DL [facility] CREATININE 1.1 0.5 - 1.2 MG/DL [facility] BUN/CREATININE RATIO 13 6 - 25 RATIO [facility] SODIUM 143 135 - 146 MEQ/L [facility] POTASSIUM 4.0 3.5 - 5.3 MEQ/L [facility] CHLORIDE 105 98 - 110 MEQ/L [facility] CARBON DIOXIDE 29 21 - 33 MEQ/L [facility] CALCIUM 10.1 8.5 - 10.4 MG/DL [facility] 03/30/2007 3:08 PM EDT 03/30/2007 3:08 PM EDT Narrative [facility] - 03/30/2007 4:09 PM EDT Patient's primary care provider is: ??Santosh Uribe Santosh Uribe GENERAL LAB Final Result [facility] [address] [place] [address] documented in this encounter Visit Diagnoses Diagnosis Physical exam- Primary Unspecified general medical examination Immunization, influenza Need for prophylactic vaccination and inoculation against influenza documented in this encounter Discontinued Medications Medication Sig Discontinue Reason Start Date End Da te LUNESTA TABLET 3MG PO (ESZOPICLONE) Take 1 tab(s) orally once a day (at bedtime) 01/20/2006 03/30/2007 documented as of this encounter Historical Medications * This list may reflect changes made after this encounter. MICRONOR TABLET 0.35MG PO (NORETHINDRONE) 1 TAB PO QDay 30 0 03/30/2007 04/06/2008 added in this encounter Orders IMMUNIZATIONS/INJECTION Count Last Ordered Date First Ordered Date IMMUNIZATION ADMIN (1) 1 03/30/2007 INFLUENZA VACCINE, SPLIT VIR US PRESERV FREE >/= 36 MOS 1 03/30/2007 documented in this encounter Care Teams Mailroom Personnel Relationship Specialty Start Date End Date Santosh Uribe MD [facility] [address] [place] [phone] PCP - General 01/15/06 documented as of this encounter
--- OUTSIDE RECORDS SUMMARY | 2024-05-29 16:21 | XMS_ITS | Encounter Summary ---
Author Organization [facility] Address [address] [place] [address] [place] [address] Care Team Providers Care Suede Cleaner Name Role Phone Santosh Celis Md Primary Care Provider [phone] Encounter Details Date Type Department Care Team (Late st Contact Info) Description 07/21/[address] [phone] Melody Faustin LPN Social History Tobacco Use [...] Encounter - Melody Faustin LPN - 07/21/2012 12:02 PM EST Spoke to patient and informed her that Rx was called in by documented in this encounter Plan of Treatment Not on file documented as of this encounter Visit Diagnoses Not on filedocumented in this encounter Care Teams Suede Cleaner Relationship Specialty Start Date End Date Santosh Celis MD [facility] [address] [place] [phone] PCP - General 01/15/06 documented as of this encounter
--- OUTSIDE RECORDS SUMMARY | 2024-05-29 16:21 | XMS_ITS | Encounter Summary ---
Author Organization [facility] Address [address] [id number] Care Team Providers Care Account Assistant Name Role Phone Santosh Celis MD Primary Care Provider [phone] Reason for Visit * Reason Comments Other Provider BALDO ESCALANTE MD (Medical Doctor,Internal Medicine A-) [facility] ([id number]) Encounter Details Date Type Department Care Team (Late st Contact Info) Description 09/18/2007 Office Visit [facility] Medicine [address] [place] [phone] Baldo Escalante MD [address] [address] Acute Pharyngitis Social History Tobacco Use Types Packs/Day Years Used Date Smoking Tobacco: Never Assessed Comments Unknown Sex and Gender Information Value Date Recorded Sex Assigned at Not on file Legal Sex Female 9:02 PM EST Gender Identity Not on file Sexual Orientation Not on file documented as of this encounter Last Filed Vital Signs Vital Sign Reading Time Taken Comments Blood Pressure - - Pulse - - Temperature 36.7 ??C (98 ??F) 09/18/2007 11:45 AM EDT Respiratory Rate - - Oxygen Saturation - - Inhaled Oxygen Concentration - - Weight - - Height - - Body Mass Index - - documented in this encounter Progress Notes * Baldo Escalante - 09/18/2007 11:45 AM EDT Cold sx No f/c/sob Now right tonsillar lump Temp 98 ?F (36.7 ?C) Chest cta Ears nl Right tonsillar minimal amount of exsudate 462 PHARYNGITIS (primary encounter diagnosis) Note: mild, porb viral documented in this encounter Plan of Treatment Not on file documented as of this encounter Visit Diagnoses Diagnosis Acute pharyngitis documented in this encounter Care Teams Account Assistant Relationship Specialty Start Date End Date Santosh Celis MD [address] [place] [phone] PCP - General 05/19/14 documented as of this encounter
--- OUTSIDE RECORDS SUMMARY | 2024-05-29 16:21 | XMS_ITS | Encounter Summary ---
Author Organization [facility] Address [address] [place] [address] [place] [address] Care Team Providers Care Manager Intranet Name Role Phone Santosh Uribe Md Primary Care Provider [phone] Reason for Visit * Reason Comments Cough sx for one week Encounter Details Date Type Department Care Team (Late st Contact Info) Description 09/04/2008 10:45 AM EDT Urgent Care [facility] Medicine [address] [place] [phone] Santosh Uribe MD [facility] [address] [place] [phone] SINUSITIS - ACUTE MAXILLARY (Primary Dx) Social History Tobacco Use Types [...] 8:30 AM EST documented in this encounter Ordered Prescriptions Prescription Sig Dispense Quantity Refills Last Filled Start Date End Date AUGMENTIN 875 MG-125 MG TAB (AMOX TR/POTASSIUM CLAVULANATE) 1 tablet every 12 hours for 10 days 20 0 09/04/2008 09/19/2008 documented in this encounter Progress Notes * Santosh Uribe MD - 09/04/2008 11:03 AM EDT27 yo woman with sinus pressure. Started 10 [...] 12/16/06. Never smoked. No alcohol. 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 Exam: BP 104/64 Pulse 74 Temp (Src) 97.9 ??F (36.6 ??C) (Oral) Wt 121 lb (54.885 kg) SpO2 [...] as of this encounter Visit Diagnoses Diagnosis Sinusitis, acute, maxillary- Primary Acute maxillary sinusitis documented in this encounter Care Teams Manager Intranet Relationship Specialty Start Date End Date Santosh Uribe MD [facility] [address] [place] [phone] PCP - General 01/15/06 documented as of this encounter
--- OUTSIDE RECORDS SUMMARY | 2024-05-29 16:21 | XMS_ITS | Encounter Summary ---
Author Organization [employer] Address [address] [place] [address] [place] [address] Care Team Providers Care Life Guard Name Role Phone Santosh Celis Md Primary Care Provider [phone] Reason for Visit * Reason Onset Date Comments question if pt. needs a f/u visit 12/12/2011 Encounter Details Date Type Department Care Team (Late st Contact Info) Description 12/12/[address] [phone] Santosh Celis MD [facility] [address] [place] [address] 0question if pt. needs a f/u visit Social History Tobacco Use Types Packs/Day Years [...] encounter Miscellaneous Notes * Telephone Encounter - Nathaly Richardson - 12/12/2011 3:18 PM EDT Seen wed [...] swelling or pain * Telephone Encounter - Bella Simmons - 12/12/2011 2:46 PM EDT Pt. Calling, was seen by dr. Martinez, to open a cyst, and pt. Needs to know if she needs to come in to see dr. Celis for a wound check, To make sure that it is heeling ok pls call pt. And let her know documented in this encounter Plan of Treatment Not on file documented as of this encounter Visit Diagnoses Not on filedocumented in this encounter Care Teams Life Guard Relationship Specialty Start Date End Date Santosh Celis MD [facility] [address] [phone] PCP - General 01/15/06 documented as of this encounter
--- OUTSIDE RECORDS SUMMARY | 2024-05-29 16:21 | XMS_ITS | Encounter Summary ---
Author Organization [facility] Address [address] [place] [address] [place] [address] Care Team Providers Care Vest Tailor Name Role Phone Santosh Celis Md Primary Care Provider [phone] Santosh Celis Md Unavailable Encounter Details Date Type Department Care Team (Late st Contact Info) Description 09/28/2013 Email Encounter [facility] Medicine [address] [place] [phone] Santosh Celis MD [facility] [address] [place] [phone] Social History Tobacco Use Types Packs/Day Years [...] on filedocumented in this encounter Care Teams Vest Tailor Relationship Specialty Start Date End Date Santosh Celis MD [facility] [address] [place] [phone] PCP - General 01/15/06 Santosh Celis MD [facility] [address] [place] [phone] PCP - Payer 06/08/13 documented as of this encounter
--- OUTSIDE RECORDS SUMMARY | 2024-05-29 16:21 | XMS_ITS | Encounter Summary ---
Author Organization [facility] Address [address] [place] [address] Care Team Providers Care Pattern Grader Cutter Name Role Phone Santosh Celis MD Primary Care Provider [phone] Reason for Visit * Reason Comments Other Provider SHARRON HOLLOWAY (Medica l Doctor,Obstetrics and Gynecology [id number]) [facility] ([id number]) Encounter Details Date Type Department Care Team (Late st Contact Info) Description 03/24/2005 Orders Only [facility] Manager Social [address] [place] [phone] Sharron Holloway [employer] [address] [address] [place] [phone] Social History Tobacco Use Types Packs/Day Years [...] encounter Procedures * Due to [place] [employer] law, this organization might not be sharing negative HIV tests. Procedure Name Priority Date/Time Associated Diagnosis Comments THINPREP PAP W REFLX TO HPV Routine 03/24/2005 11:21 AM EDT documented in this encounter Results * Due to [place] [employer] Skip [employer] law, this organization might not be sharing negative HIV tests. * THINPREP PAP W REFLX TO HPV (03/24/2005 11:21 AM EDT) PAP Smear SEE TEXT 04/04/2005 10:00 AM EST [facility] Comment: ? THINPREP PAP TEST [...] IS NOT PERFORMED. FOLLOW-UP CLINICALLY INDICATED. COMMENTS: ??#[id number] RESULT DATE: ??04/03/2005 TECHNOLOGIST: ??FA/DD GYNECOLOGICAL CYTOLOGY IS A SCREENING PROCEDURE SUBJECT TO BOTH FALSE NEGATIVE AND FALSE POSITIVE RESULTS. ??IT IS MOST RELIABLE WHEN A SATISFACTORY SAMPLE IS OBTAINED ON A REGULAR REPETITIVE BASIS. RESULTS MUST BE INTERPRETED IN THE CONTEXT OF HISTORIC AND CURRENT CLINICAL INFORMATION. 03/24/2005 11:2 1 AM EDT 03/24/2005 11:21 AM EDT Narrative [facility] - 04/04/2005 10:00 AM EST Testing performed at: [facility], [address] [place] [address], [id number], [employer] Staff Officer: LESLEE LAU M.D., CLIA ID# [id number] Sharron Holloway PATHOLOGY Final Result [facility] documented in this encounter Visit Diagnoses Not on filedocumented in this encounter Care Teams Pattern Grader Cutter Relationship Specialty Start Date End Date Santosh Celis MD [address] [place] [phone] PCP - General 05/19/14 documented as of this encounter
--- OUTSIDE RECORDS SUMMARY | 2024-05-29 16:21 | XMS_ITS | Encounter Summary ---
Author Organization [facility] Address [address] [place] [address] [place] [address] Care Team Providers Care Ice Skating Coach Name Role Phone Santosh Celis Md Primary Care Provider [phone] Santosh Celis Md Unavailable Reason for Visit * Reason Comments Strep Encounter Details Date Type Department Care Team (Late st Contact Info) Description 07/31/2013 Telephone [facility] Medicine [address] [place] [phone] Santosh Celis MD [facility] [address] [place] [phone] Pharyngitis (Primary Dx) Social History Tobacco Use Types [...] Notes * Telephone Encounter - Lou Denney RN - 07/31/2013 1:55 PM EST Rapid strep was neg. Advised if pt continues to have symptoms, please call to be seen. * Telephone Encounter - Lou Denney RN - 07/31/2013 10:27 AM EST Pt wants [...] Would like a throat culture. Please advise. documented in this encounter Plan of Treatment Not on file documented as of this encounter Procedures Procedure Name Priority Date/Time Associated Diagnosis Comments RAPID STREP LAB Routine 07/31/2013 10:58 AM EST Pharyngitis documented in this encounter Results * RAPID STREP LAB (07/31/2013 10:58 AM EST) RAPID STREP (LAB) Negative for Gr A NEG FOR GR. A STREP [facility] Micro Swab (Throat) 07/31/2013 10:58 AM EST 07/31/2013 10:58 AM EST Narrative [facility] - 07/31/2013 11:12 AM EST Patient's primary care provider is: ??Santosh Celis Pharmacy to call if results are POSITIVE->[facility] ??Review of patient's allergies indicates no known allergies. Allergies: Source: Santosh Celis MICROBIOLOGY LAB Final Result [facility] [address] [place] [address] documented in this encounter Visit Diagnoses Diagnosis Pharyngitis- Primary Acute pharyngitis documented in this encounter Care Teams Ice Skating Coach Relationship Specialty Start Date End Date Santosh Celis MD [facility] [address] [place] [phone] PCP - General 01/15/06 Santosh Celis MD [facility] [address] [place] [address] PCP - Payer 06/08/13 documented as of this encounter
--- OUTSIDE RECORDS SUMMARY | 2024-05-29 16:21 | XMS_ITS | Encounter Summary ---
Author Organization [facility] Address [address] [place] [address] [place] [address] Care Team Providers Care Solid Waste Manager Name Role Phone Santosh Celis Md Primary Care Provider [phone] Santosh Celis Md Unavailable Encounter Details Date Type Department Care Team (Late st Contact Info) Description 08/22/[address] [phone] Santosh Celis MD [facility] [address] [place] [phone] Social History Tobacco Use Types Packs/Day Years [...] * Telephone Encounter - Debbie Acevedo - 08/24/2014 3:53 PM EDT See my health message * Telephone Encounter - Debbie Acevedo - 08/24/2014 3:07 PM EDT Left message to call back My health message also sent to patient * Telephone Encounter - Debbie Acevedo - 08/22/2014 9:07 AM EDT [employer] message sent to patient documented in this encounter Plan of Treatment Not on file documented as of this encounter Visit Diagnoses Not on filedocumented in this encounter Care Teams Solid Waste Manager Relationship Specialty Start Date End Date Santosh Celis MD [address] [phone] PCP - General 01/15/06 Santosh Celis MD [address] [phone] PCP - Payer 06/08/13 documented as of this encounter
--- OUTSIDE RECORDS SUMMARY | 2024-05-29 16:21 | XMS_ITS | Clinical Summary ---
Author Organization [facility] Address [address] [place] [address] [place] [address] Care Team Providers Care Furnace Repairer Name Role Phone Santosh Celis Md Primary Care Provider [phone] Santosh Celis Md Unavailable Allergies No known active allergies Medications OCELLA 3 MG-0.03 MG TAB (ETHINYL ESTRADIOL/DROSPI RENONE) one tab po daily 28 0 04/06/2008 Active Active Problems No known active problems Immunizations Name Administration Dates Next Due Influenza H1N1 Vaccine IM 05/08/2009 Influenza Vaccine (Unspecifi ed Formulation) 05/15/2010,03/01/2009,04/06/2008, 007 TD Vaccine (Adult) 12/31/1999 TdaP 05/08/2009 Surgical History Surgery Date Site/Laterality Comments labrum repair 1999 left shoulder REPAIR BICEPS LONG TENDON 2001 left arm TONSILLECTOMY & ADENOIDECTOMY 1988 Medical History Medical History Date Comments Tear of PCL (posterior cruci ate ligament) of knee 1996 left knee; injured in gymnas tics; treated with PT Family History Medical History Relation Comments No significant medical history Brother 2 No significant medical history Father Cancer - breast Maternal Aunt CAD/PVD Maternal Grandfather Cancer - breast Maternal Grandmother Hypertension Mother CAD/PVD Paternal Grandfather Relation Status Comments Brother 1 Alive 3 yrs younger Brother 2 Father Alive Maternal Aunt Maternal Grandfather Maternal Grandmother Mother Alive Paternal Grandfather Social History Tobacco Use Types Packs/Day Years Used Date Smoking Tobacco: Never Smokeless Tobacco: Never Alcohol Use Standard Drinks/Week Comments No 0 (1 standard drink = 0.6 oz pur e alcohol) Comments No Sex and Gender Information Value Date Recorded Sex Assigned at Not on file Legal Sex Female 2:08 AM EDT Gender Identity Not on file Sexual Orientation Not on file Obstetrics History Last Filed Vital Signs Vital Sign Reading Time Taken Comments Blood Pressure 137/96 08/01/2014 2:32 PM EST Pulse 86 08/01/2014 2:32 PM EST Temperature 37 ??C (98.6 ??F) 08/01/2013 3:31 PM EST Respiratory Rate 16 04/06/2008 8:30 AM EST Oxygen Saturation 99% 05/03/2009 1:45 PM EST Inhaled Oxygen Concentration - - Weight 56.2 kg (124 lb) 09/13/2013 1:00 PM EDT Height 165.7 cm (5' 5.25) 09/13/2013 1:00 PM ED T Body Mass Index 20.48 09/13/2013 1:00 PM EDT Plan of Treatment Health Maintenance Due Date Last Done Comments HEP B INITIAL SCREENING 12/16/1999 HIV SCREENING 12/16/1999 HEPATITIS B VACCINE (1 of 3 - 19+ 3-dose series) 2000 PAP: UPDATE W EDIT MODIFIERS 03/25/2005 03/24/2005 * GLUCOSE OR A1C SCREENING - Q3YR 2016 09/13/2013, 08/13/2009, 04/06/2008, Additional history exists HEP C SCREENING 2017 LIPID SCREENING 09/13/2018 09/13/2013, 07/30, 04/06/2008, Additional history exists DTAP/TDAP/TD VACCINE (3 - Td or Tdap) 05/08/2019 05/08/2009, 12/31/1999 MAMMOGRAPHY: 1 YR 2021 PERIODIC HEALTH REVIEW 2021 COVID-19 Vaccine ( season) 2024 FLU SEASONAL (#1) 01/31/2024 05/15/2010, 03/01/2009, 04/06/2008, Additional history exists HAEMOPHILUS INFLUENZA VACCINE Aged Out No longer eligible based on patient's age to complete this topic HEPATITIS A VACCINE Aged Out No longe r eligible based on patient's age to complete this topic PNEUMOCOCCAL VACCINE(S) Aged Out No l onger eligible based on patient's age to complete this topic POLIO VACCINE Aged Out No longer elig ible based on patient's age to complete this topic RSV Vaccine //toddler Aged Out No longer eligible based on patient's age to complete this topic Procedures Procedure Name Priority Date/Time Associated Diagnosis Comments COMPREHENSIVE METABOLIC PROFILE W/GFR ([facility]) Routine 09/13/2013 1:35 PM EDT Physical exam, annual Family planning, BCP ( control pills) initial prescription LIPID PROFILE Routine 09/13/2013 1:35 PM EDT Physical exam, annual THIN PREP PAP W REFLX TO HPV Routine 03/24/2005 11:21 AM EDT from Last 3 Months or Most Recently Relevant to Health Maintenance Results * COMPREHENSIVE METABOLIC PROFILE W/GFR ([facility]) (09/13/2013 1:35 PM EDT) Pathologist [facility] GLUCOSE 83 65 - 99 mg/dl [facility] BUN 9 7 - 25 mg/dL [facility] CREATININE 0.86 0.50 - 1.16 mg/dL [facility] SODIUM 138 136 - 145 mmo/L [facility] POTASSIUM 3.5 3.5 - 5.3 mmol/L [facility] CHLORIDE 102 98 - 107 mmo/L [facility] CALCIUM 9.1 8.5 - 10.4 mg/dL [facility] TOTAL PROTEIN 7.2 6.0 - 8.3 g/dL [facility] ALBUMIN 4.6 3.5 - 5.2 g/dL [facility] GLOBULIN 3 2 - 4 G/DL [facility] BILIRUBIN TOTAL 0.32 0.20 - 1.50 mg/dL [facility] ALKALINE PHOSPHATASE 47 33 - 130 U/L [facility] SGOT (AST) 15 <38 U/L [facility] CARBON DIOXIDE 25 23 - 33 mmol/L [facility] SGPT (ALT) 9 <47 U/L [facility] EGFR 81 >60 ml/min [facility] Comment: For patients greater than 18 years of and and if the patient is , please multiply result by 1.210 Venous Draw 09/13/2013 1:35 PM EDT 09/13/2013 1:35 PM EDT Narrative [facility] - 09/13/2013 3:32 PM EDT not fasting Patient's primary care provider is: ??Santosh Celis Santosh Celis GENERAL LAB Final Result Performing Organization Address [facility] de Phone Number [address] [address] * LIPID PROFILE (09/13/2013 1:35 PM EDT) CHOLESTEROL 149 <200 mg/dL [facility] TRIGLYCERIDES 83 <150 mg/dL [facility] HDL 86 >40 mg/dL [facility] Comment: NCEP GUIDELINES Desireable >60 mg/dL Borderline 40-59 mg/dL ?? Undesirable <40 mg/dL LDL 47 <130 mg/dL [facility] CHOL/HDL RATIO 2 0 - 5 CALC [facility] Venous Draw 09/13/2013 1:35 PM EDT 09/13/2013 1:35 PM EDT Narrative [facility] - 09/13/2013 3:32 PM EDT not fasting Patient's primary care provider is: ??Santosh Celis Santosh Celis GENERAL LAB Final Result Performing Organization Address [facility] de Phone Number [address] [address] * THINPREP PAP W REFLX TO HPV (03/24/2005 11:21 AM EDT) THINPREP PAP TEST SEE TEXT [facility] Comment: ? THINPREP PAP TEST SOURCES: [...] IS NOT PERFORMED. FOLLOW-UP CLINICALLY INDICATED. COMMENTS: ??#[id number] RESULT DATE: ??04/03/2005 TECHNOLOGIST: ??FA/DD GYNECOLOGICAL CYTOLOGY IS A SCREENING PROCEDURE SUBJECT TO BOTH FALSE NEGATIVE AND FALSE POSITIVE RESULTS. ??IT IS MOST RELIABLE WHEN A SATISFACTORY SAMPLE IS OBTAINED ON A REGULAR REPETITIVE BASIS. RESULTS MUST BE INTERPRETED IN THE CONTEXT OF HISTORIC AND CURRENT CLINICAL INFORMATION. 03/24/2005 11:2 1 AM EDT 03/25/2005 11:21 AM EDT Narrative [facility] - 04/04/2005 10:00 AM EST Testing performed at: [facility], [address] [place], [address], [employer] Consultant: LESLEE LAU M.D., CLIA ID# [id number] us Sharron Gonzalez [facility] Final Result [facility] [address] [facility] [place] [address] from Last 3 Months or Most Recently Relevant to Health Maintenance Care Teams Furnace Repairer Relationship Specialty Start Date End Date Santosh Celis MD [facility] [address] [place] [phone] PCP - General 01/15/06 Santosh Celis MD [facility] [address] [place] [phone] PCP - Payer 06/08/13
--- OUTSIDE RECORDS SUMMARY | 2024-05-29 16:21 | XMS_ITS | Encounter Summary ---
Author Organization [facility] Address [address] [place] [address] [place] [address] Care Team Providers Care Cosmetics Presser Name Role Phone Santosh Celis Md Primary Care Provider [phone] Reason for Visit * Reason Comments Complete Physical Exam Encounter Details Date Type Department Care Team (Late st Contact Info) Description 05/08/2009 11:15 AM EST Office Visit [address] [phone] Santosh Celis MD [facility] [address] [place] [phone] Physical Exam (Primary Dx); Underweight; Immunization, Tetanus-Diphtheria Social History Tobacco Use Types Packs/Day Years [...] documented in this encounter Progress Notes * Yesica Mcleod - 08/07/2009 10:30 AM ESTAddended by: YESICA CAMEJO on: 08/07/2009 10:30:12 AM Modules accepted: Orders * Santohs Celis MD - 05/08/2009 1:01 PM EST 28 yo [...] 12/16/06. Never smoked. No alcohol. 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 care up to date and as per [...] LIPID PROFILE Routine 08/13/2009 12:00 AM EDT Physical Exam Underweight Immunization, Tetanus-Diphtheria COMPREHENSIVE METABOLIC PROFILE Routine 08/13/2009 12:00 AM EDT Physical Exam Underweight Immunization, Tetanus-Diphtheria HEMOGRAM (CBC) WITH AUTO DIFF REFLEX MANUAL DIFF Routine 08/13/2009 12:00 AM EDT Physical Exam Underweight Immunization, Tetanus-Diphtheria documented in this encounter Results * COMPREHENSIVE METABOLIC PANEL (08/13/2009 12:00 AM EDT) GLUCOSE 85 65 - 99 mg/dL [facility] BUN 12 7 - 25 MG/DL [facility] CREATININE 0.8 0.5 - 1.3 MG/DL [facility] BUN/CREATININE RATIO 15 6 - 25 RATIO [facility] SODIUM 142 135 - 148 MEQ/L [facility] POTASSIUM 3.9 3.5 - 5.3 MEQ/L [facility] CHLORIDE 103 98 - 110 MEQ/L [facility] CALCIUM 9.1 8.5 - 10.4 MG/DL [facility] TOTAL PROTEIN SERUM 7.3 6.0 - 8.3 G/DL [facility] ALBUMIN 4.4 3.5 - 4.9 G/DL [facility] GLOBULIN 3 2 - 4 G/DL [facility] A/G RATIO (PREL) 1.5 0.8 - 2.0 (CALC) [facility] BILIRUBIN TOTAL 0.4 0.2 - 1.5 MG/DL [facility] ALKALINE PHOSPHATASE 63 33 - 130 U/L [facility] SGOT (AST) 22 14 - 36 U/L [facility] CARBON DIOXIDE 28 21 - 33 MEQ/L [facility] SGPT (ALT) 16 9 - 52 U/L [facility] 08/13/2009 08/13/2009 12: 07 PM EDT Santosh Celis GENERAL LAB Final Result Performing Organization Address City/[facility] Co de Phone Number [facility] [address] [place] [address] * (ABNORMAL) LIPID PROFILE (08/13/2009 12:00 AM EDT) [facility] CHOLESTEROL 151 100 - 199 MG/DL [facility] TRIGLYCERIDES 59 30 - 149 MG/DL [facility] HDL 82(H) 40 - 77 MG/DL [facility] LDL 57(L) 62 - 130 MG/DL [facility] CHOL/HDL RATIO 2 0 - 5 CALC [facility] Venous Draw 08/13/2009 08/13/2009 12 :07 PM EDT Santosh Celis GENERAL LAB Final Result Performing Organization Address [facility] de Phone Number [facility] [address] [place] [address] * (ABNORMAL) HEMOGRAM (CBC) W AUTO DIFF RFLX MAN DIFF (08/13/2009 12:00 AM EDT) [facility] WBC 5.2 3.8 - 10.8 K/uL [facility] ABSOLUTE NEUTROPHILS INSTRUMENT 2.9(L) 3.3 - 6.3 K/uL [facility] ABSOLUTE LYMPHOCYTES INSTRUMENT 2.0 0.9 - 3.9 K/uL [facility] ABSOLUTE MONOCYTES INSTRUMENT 0.3 0.2 - 1.0 K/uL [facility] ABSOLUTE EOSINOPHILS INSTRUMENT 0.0 0.0 - 0.2 K/uL [facility] ABSOLUTE BASOPHILS INSTRUMENT 0.0 0.0 - 0.2 K/uL [facility] NEUTROPHILS, % 54.9 48.0 - 77.7 % [facility] LYMPHOCYTES, % 38.5(H) 10.0 - 38.0 % [facility] MONOCYTES % 4.8 0.0 - 14.0 % [facility] EOSINOPHILS, % 0.9 0.0 - 5.0 % [facility] BASOPHILS, % 0.8 0.0 - 3.0 % [facility] RBC 4.53 3.80 - 5.10 M/uL [facility] HGB 13.9 11.7 - 15.5 g/dL [facility] HCT 40.6 35.0 - 45.0 % [facility] MCV 89.5 80.0 - 100.0 fl [facility] MCH 30.8 27.0 - 33.0 pg [facility] MCHC 34.4 32.0 - 36.0 % [facility] RDW 11.3 11.0 - 15.0 % [facility] PLTS 214 140 - 400 K/uL [facility] Venous Draw 08/13/2009 08/13/2009 12 :07 PM EDT us Santosh Celis GENERAL LAB Final Result [facility] [address] [place] [address] documented in this encounter Visit Diagnoses Diagnosis Physical exam- Primary Unspecified general medical examination Underweight Immunization, tetanus-diphtheria Need for prophylactic vaccination with tetanus-diphtheria (Td) documented in this encounter Discontinued Medications Medication Sig Discontinue Reason Start Date End Da te ZITHROMAX Z-SUSANNAH 250 MG TAB (AZITHROMYCIN)Indication s:Sinusitis acute 2 tablets today, then 1 tablet daily for 4 days 05/03/2009 05/08/2009 documented as of this encounter Orders IMMUNIZATIONS/INJECTION Count Last Ordered Date First Ordered Date INFLUENZA H1N1 VACCINE, >/= 36 MOS 1 2008 TDAP VACCINE 11-64 YO (EXPOS URE/PRIVATE SUPPLY, ADACEL) 1 05/08/2009 documented in this encounter Care Teams Cosmetics Presser Relationship Specialty Start Date End Date Santosh Celis MD [facility] [address] [place] [phone] PCP - General 01/15/06 documented as of this encounter
--- OUTSIDE RECORDS SUMMARY | 2024-05-29 16:21 | XMS_ITS | Encounter Summary ---
Author Organization [facility] Address [address] [place] [address] [place] [address] Care Team Providers Care Assistant Property Manager Name Role Phone Santosh Celis Md Primary Care Provider [phone] Encounter Details Date Type Department Care Team (Late st Contact Info) Description 08/21/2009 Letter (Out) [facility] Medicine [address] [place] [phone] Santosh Celis MD [facility] [address] [place] [phone] Social History Tobacco Use Types Packs/Day Years [...] on filedocumented in this encounter Care Teams Assistant Property Manager Relationship Specialty Start Date End Date Santosh Celis MD [facility] [address] [place] [phone] PCP - General 01/15/06 documented as of this encounter
--- OUTSIDE RECORDS SUMMARY | 2024-05-29 16:21 | XMS_ITS | Encounter Summary ---
Author Organization [facility] Address [address] [place] [address] [place] [address] Care Team Providers Care Boat Dispatcher Name Role Phone Santosh Celis Md Primary Care Provider [phone] Reason for Visit * Reason Comments Lump RIGHT ARMPIT; X 2 WK S Encounter Details Date Type Department Care Team (Late st Contact Info) Description 12/05/2011 10:00 AM EDT Office Visit [facility] Adult Medicine [address] [place] [phone] Tom Gonzalez MD [facility] [address] [place] [phone] Folliculitis (Primary Dx) Social History Tobacco Use Types [...] 8:33 AM EST documented in this encounter Ordered Prescriptions Prescription Sig Dispense Quantity Refills Last Filled Start Date End Date Amoxicillin 500 mg Oral CapsuleIndications :Folliculitis Take 1 capsule three times daily for 7 days 21 Cap 0 12/05/2011 2 documented in this encounter Progress Notes * Tom Gonzalez MD - 12/05/2011 10:46 AM EDT Pt C/o [...] as of this encounter Visit Diagnoses Diagnosis Folliculitis- Primary Other specified disease of hair and hair follicles documented in this encounter Care Teams Boat Dispatcher Relationship Specialty Start Date End Date Santosh Celis MD [facility] [address] [place] [phone] PCP - General 01/15/06 documented as of this encounter
--- OUTSIDE RECORDS SUMMARY | 2024-05-29 16:21 | XMS_ITS | Encounter Summary ---
Author Organization [facility] Address [address] [place] [address] [place] [address] Care Team Providers Care Research Quality Assurance Analyst Name Role Phone Santosh Celis Md Primary Care Provider Santosh Celis Md Unavailable Encounter Details Date Type Department Care Team (Late st Contact Info) Description 04/19/2008 Letter (Out) [facility] Medicine [address] [place] [phone] Santosh Celis MD [facility] [address] [place] [phone] Social History Tobacco Use Types Packs/Day Years [...] on filedocumented in this encounter Care Teams Research Quality Assurance Analyst Relationship Specialty Start Date End Date Santosh Celis MD [facility] [address] [place] [phone] PCP - General 01/15/06 Santosh Celis MD [facility] [address] [place] [phone] PCP - Payer 06/08/13 documented as of this encounter
--- OUTSIDE RECORDS SUMMARY | 2024-05-29 16:21 | XMS_ITS | Encounter Summary ---
Author Organization [facility] Address [address] [place] [address] Care Team Providers Care Database Developer Name Role Phone Jorje Celis MD Primary Care Provider [phone] Reason for Visit * Reason Comments Base Loader Exam Provider JORJE CELIS MD ([facility] Doctor,Internal Medicine [id number]) [facility] Adult Medicine ([id number]) Encounter Details Date Type Department Care Team (Latest Contact Info) Description 03/30/2007 CPE - Comprehensive Physical Exam [facility] Adult Medicine [address] [place] [phone] Jorje Celis MD [address] [place] [address] Routine General Medical Examination at a Health Care Facility; Need for Prophylactic Vaccination and Inoculation Against [...] documented in this encounter Progress Notes * VimalJorje Surendra - 03/30/2007 10:00 AM EDT Fátima Tomlin is [...] Allergies. Social History Narrative . also dr celis's patient. Gave to Binh on 12/16/06. Nonsmoker. No alcohol. 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 FAMILY HISTORY - Family Medical History: No [...] Chest: clear to auscultation. Breasts: deferred to sulfide head operator Cardiac: regular rhythm without murmurs or gallops. Abdomen: bowel sounds normal, soft, without tenderness, masses or organomegaly. Base Loader: exam to be done in Gynecology. Rectal: will be done in Gynecology. Extremities: no clubbing, cyanosis, or edema; pulses normal. Neuro: non-focal. Assessment: Healthy female CPE Plan: Check lipid, bmp- patient was about 2 hrs postprandial Adequate calcium intake discussed Age appropriate safety measures discusses Base Loader per dr. Jeff Flu vaccine given documented in this encounter Miscellaneous Notes * Letter - Jorje Celis - 03/29/2007 8:00 PM EDT Fátima Tomlin [birth year] [address] [place] [phone] Dear Fátima Tomlin: Patient #: [id number] The result of your recent lab work was normal. The cholesterol is shown below. Your blood sugar was72 which is normal. If you have any questions, please feel free to contact us at [phone]. Sincerely, The Office of Jorje Celis MD CHOL 143 03/30/2007 HDL 89 03/30/2007 LDL 47 03/30/2007 TRIG 35 03/30/2007 documented in this encounter Plan of Treatment Not on file documented as of this encounter Procedures * Due to [employer] law, this organization might not be sharing negative HIV tests. Procedure Name Priority Date/Time Associated Diagnosis Comments LIPID PROFILE Routine 03/30/2007 3:08 PM EDT BASIC METABOLIC PANEL Routine 03/30/2007 3:08 PM EDT documented in this encounter Results * Due to [employer] law, this organization might not be sharing negative HIV tests. * (ABNORMAL) LIPID PROFILE (03/30/2007 3:08 PM EDT) Cholesterol 143 100 - 199 MG/DL 03/30/2007 4:09 PM EDT [facility] Triglyceride 35 30 - 149 MG/DL 03/30/2007 4:09 PM EDT [facility] Cholesterol.in HDL 89(H) 40 - 77 MG/DL 03/30/2007 4:09 PM EDT [facility] LDL 47(L) 62 - 130 MG/DL 03/30/2007 4:09 PM EDT [facility] Chol/HDL Ratio 2 0 - 5 CALC 03/30/2007 4:09 PM EDT [facility] 03/30/2007 3:08 PM EDT 03/30/2007 3:08 PM EDT Narrative [facility] - 03/30/2007 4:09 PM EDT Patient's primary care provider is: ??Jorje Celis us Jorje Celis MD LABORATORY Final Result [facility] * BASIC METABOLIC PANEL (03/30/2007 3:08 PM EDT) [facility] Glucose Fasting 72 65 - 99 mg/dL 03/30/2007 4:09 PM EDT [facility] Urea Nitrogen Blood (BUN) 14 7 - 25 MG/DL 03/30/2007 4:09 PM EDT [facility] Creatinine 1.1 0.5 - 1.2 MG/DL 03/30/2007 4:09 PM EDT [facility] BUN/Creatinine Ratio 13 6 - 25 RATIO 03/30/2007 4:09 PM EDT [facility] Sodium 143 135 - 146 MEQ/L 03/30/2007 4:09 PM EDT [facility] Potassium 4.0 3.5 - 5.3 MEQ/L 03/30/2007 4:09 PM EDT [facility] Chloride 105 98 - 110 MEQ/L 03/30/2007 4:09 PM EDT [facility] Carbon Dioxide 29 21 - 33 MEQ/L 03/30/2007 4:09 PM EDT [facility] Calcium 10.1 8.5 - 10.4 MG/DL 03/30/2007 4:09 PM EDT [facility] 03/30/2007 3:08 PM EDT 03/30/2007 3:08 PM EDT Narrative [facility] - 03/30/2007 4:09 PM EDT Patient's primary care provider is: ??Jorje Celis us Jorje Celis MD LABORATORY Final Result [facility] documented in this encounter Visit Diagnoses Diagnosis Routine general medical examination at a health care facility Need for prophylactic vaccination and inoculation against influenza documented in this encounter Care Teams Database Developer Relationship Specialty Start Date End Date Jorje Celis MD [address] [place] [address] PCP - General 05/19/14 documented as of this encounter
--- OUTSIDE RECORDS SUMMARY | 2024-05-29 16:21 | XMS_ITS | Encounter Summary ---
Author Organization [facility] Address [address] [place] [address] [place] [address] Care Team Providers Care Trackman Name Role Phone Santosh Celis Md Primary Care Provider [phone] Reason for Visit * Reason Comments Cyst f/u cyst drained in right axilla on 12/10/11 Encounter Details Date Type Department Care Team (Late st Contact Info) Description 12/19/2011 1:45 PM EDT Office Visit [facility] Medicine [address] [place] [phone] Santosh Celis MD [facility] [address] [facility] [place] [phone] Abscess (Primary Dx) Social History Tobacco Use Types [...] Progress Notes * Santosh Celis MD - 12/19/2011 5:35 PM EDT 31 yo [...] as of this encounter Visit Diagnoses Diagnosis Abscess- Primary Cellulitis and abscess of unspecified site documented in this encounter Discontinued Medications Medication Sig Discontinue Reason Start Date End Da te Amoxicillin 500 mg Oral CapsuleIndications:Fol liculitis Take 1 capsule three times daily for 7 days Medication No Longer Necessary 12/05/2011 12/19/2011 documented as of this encounter Care Teams Trackman Relationship Specialty Start Date End Date Santosh Celis MD [facility] [address] [place] [phone] PCP - General 01/15/06 documented as of this encounter
--- OUTSIDE RECORDS SUMMARY | 2024-05-29 16:21 | XMS_ITS | Encounter Summary ---
Author Organization [facility] Address [address] [place] [address] [address] [place] [address] Care Team Providers Care Narcotics Investigator Name Role Phone Santosh Celis Md Primary Care Provider [phone] Reason for Referral * Specialty (1 Day) - Closed Specialty Diagnoses / Procedures Referred By Aysha jamil Referred To Contact Surgery / Surgery, General Diagnoses Hidradenitis suppurativa of right axilla Robert Constantino DO Phone: tel: fax: Maria A Enrique Phone: tel: fax: Referral ID Status Reason Start Date Expiration Date V isits Requested Visits Authorized [id number] Closed Service not locally available 12/08/2011 12/07/2012 3 3 Reason for Visit * Reason Comments Lump red, swollen, tender area in right axilla x 2 weeks. On amox since 12/05/11 and the lump is worsening Encounter Details Date Type Department Care Team (Late st Contact Info) Description 12/08/2011 5:30 PM EDT Office Visit [facility] Adult Medicine [address] [place] [phone] Robert Constantino DO [facility] [address] [facility] [place] [phone] Hidradenitis suppurativa of right axilla (Primary Dx) Social History Tobacco Use Types [...] this encounter Patient Instructions * Patient Instructions* Robert Constantino DO - 12/08/2011 5:46 PM EDT Call office first thing in am to talk to referrals documented in this encounter Progress Notes * Robert Constantino DO - 12/08/2011 5:53 PM EDT F/u R [...] general surgeon for eval and possible I&D documented in this encounter Nursing Notes * 12/08/2011 5:30 PM EDT >> CAMILLE AZALIA RN Mon Dec 08, 2011 5:21 PM Patient is . documented in this encounter Plan of Treatment Scheduled Referrals Name Type Priority Associated Diagnoses Orde r Schedule REFERRAL TO GENERAL SURGERY REFERRAL/FUTURE Routine Hidradenitis suppurativa of right axilla Expected: 12/09/2011 (Approximate), Expires: 12/07/2012 documented as of this encounter Visit Diagnoses Diagnosis Hidradenitis suppurativa of right axilla- Primary Hidradenitis documented in this encounter Care Teams Narcotics Investigator Relationship Specialty Start Date End Date Santosh Celis MD [facility] [address] [place] [phone] PCP - General 01/15/06 documented as of this encounter
--- OUTSIDE RECORDS SUMMARY | 2024-05-29 16:21 | XMS_ITS | Encounter Summary ---
Author Organization [employer] Address [address] [place] [address] [address] [place] [address] Care Team Providers Care Pool Installer Name Role Phone Santosh Celis Md Primary Care Provider [phone] Reason for Visit * Reason Onset Date Comments lump in armpit 12/04/2011 FYI 12/04/2011 Encounter Details Date Type Department Care Team (Late st Contact Info) Description 12/04/2011 Telephone [facility] Medicine [address] [place] [phone] Santosh Celis MD [facility] [address] [place] [phone] 0lump in armpit Social History Tobacco Use Types Packs/Day Years [...] encounter Miscellaneous Notes * Telephone Encounter - Cheyanne Pierson RN - 12/04/2011 4:26 PM EDT Fátima Tomlin [...] any Hx of cysts. Patient transferred to office coordinator receptionist to book an appointment tomorrow. Appt: 12/05/11, Dr. Gonzalez, 10:00 am Routed to PCP as an FYI. * Telephone Encounter - Baylee Suarez - 12/04/2011 4:19 PM EDT Pt has a lump in armpit x1 week. Its sore. Thought it was ingrown hair but is just a lump. States its 1/2 inch documented in this encounter Plan of Treatment Not on file documented as of this encounter Visit Diagnoses Not on filedocumented in this encounter Care Teams Pool Installer Relationship Specialty Start Date End Date Santosh Celis MD [facility] [address] [place] [phone] PCP - General 01/15/06 documented as of this encounter
--- OUTSIDE RECORDS SUMMARY | 2024-05-29 16:21 | XMS_ITS | Encounter Summary ---
Author Organization [facility] Address [address] [place] [address] Care Team Providers Care Payroll Tax Specialist Name Role Phone Jorje Celis MD Primary Care Provider [phone] Reason for Visit * Reason Comments Other RETURNING CALL Allergic Conjunctivitis Provider JORJE CELIS MD ([facility] Doctor,Internal Medicine [id number]) [facility] Adult Medicine ([id number]) Encounter Details Date Type Department Care Team ([facility] st Contact Info) Description 09/09/2007 Telephone [facility] Adult Medicine [address] [place] [phone] Jorje Celis MD [address] [place] [address] Other (RETURNING CALL); Allergic Conjunctivitis; Provider (JORJE CELIS MD (Medical Doctor,Internal Medicine [id number]) [facility] Adult Medicine ([id number])) Social History Tobacco Use Types Packs/Day Years Used Date Smoking Tobacco: Never Assessed Comments Unknown Sex and Gender Information Value Date Recorded Sex Assigned at Not on file Legal Sex Female 9:02 PM EST Gender Identity Not on file Sexual Orientation Not on file documented as of this encounter Miscellaneous Notes * Telephone Encounter - Jorje Celis - 09/09/2007 11:59 PM EDT >> YESICA CAMEJO [facility] Sep 16, 2007 10:14 AM Please review, complete and close encounter. Thank you. >> HORACIO CELIS MD. [facility] Sep 09, 2007 11:17 AM Can treat w/ ciloxan. >> LORENA LEE [facility] Sep 09, 2007 11:06 AM No >> HORACIO CELIS MD. [facility] Sep 09, 2007 10:54 AM Is she ? >> LORENA JESUS [facility] Sep 09, 2007 10:12 AM C/o discharge from eyes. No vision trouble. Children have had conjunctivitis. Can we treat. Pt advised to call back if not resolving >> KARLY DICKERSON [facility] Sep 09, 2007 10:04 AM Pt returning call to [facility] >> LORENA CARRASCOLYNN [facility] Sep 09, 2007 9:53 AM Lmtcb at 1000 am >> YESICA CAMEJO Heidi Sep 09, 2007 9:20 AM Pt believes she has conjunctivitis documented in this encounter Plan of Treatment Not on file documented as of this encounter Visit Diagnoses Not on filedocumented in this encounter Care Teams Payroll Tax Specialist Relationship Specialty Start Date End Date Jorje Celis MD [address] [place] [phone] PCP - General 05/19/14 documented as of this encounter
--- OUTSIDE RECORDS SUMMARY | 2024-05-29 16:21 | XMS_ITS | Encounter Summary ---
Author Organization [facility] [employer] [facility] Address [address] [place] [address] [place] [address] Care Team Providers Care Land Development Project Manager Name Role Phone Santosh Uribe Md Primary Care Provider [phone] Reason for Visit * Reason Comments Complete Physical Exam Encounter Details Date Type Department Care Team (Late st Contact Info) Description 04/06/2008 8:30 AM EST Office Visit [address] [phone] Santosh Uribe MD [facility] [address] [place] [phone] PHYSICAL EXAM (Primary Dx); FATIGUE; DEPRESSIVE DISORDER; IMMUNIZATION - INFLUENZA; MALAISE Social History Tobacco Use Types Packs/Day Years [...] Progress Notes * Santosh Uribe MD - 04/06/2008 9:21 AM EST27 yo woman here for CPE. She notes 2 months of feeling miserable... Unhappy ... Always tired. bored with the monotony of same daily activities. Still going to work and functioning well. No crying spells. Sleep and appetite are fine. Still able to enjoy usual recreational activities. We discussed treatment at length to include talking therapy and medication. I gave her the number for [facility]. She will f/u with their therapist and [...] 12/16/06. Never smoked. No alcohol. 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 Family Medical History: Hypertension Mother No Significant [...] above Flu shot given F/u today with social media analyst for pap/pelvic today Age-appropriate counseling done 15 minutes dedicated to counseling regarding her dysthmia documented in this encounter Nursing Notes * 04/06/2008 8:30 AM EST >> LORENA LEE Heidi Apr 06, 2008 9:16 AM Flu shot given Consent obtained Pt tolerated well documented in this encounter Plan of Treatment Not on file documented as of this encounter Procedures Procedure Name Priority Date/Time Associated Diagnosis Comments EST. PAT. L2, OFFICE VISIT Routine 04/06/2008 9:08 AM EST FATIGUE DEPRESSIVE DISORDER VITAMIN D 25-HYDROXY TOTAL PLUS D2, D3 Routine 04/06/2008 12:00 AM EST FATIGUE PHYSICAL EXAM DEPRESSIVE DISORDER Malaise TSH Routine 04/06/2008 12:00 AM EST FATIGUE PHYSICAL EXAM DEPRESSIVE DISORDER Malaise LIPID PROFILE Routine 04/06/2008 12:00 AM EST FATIGUE PHYSICAL EXAM DEPRESSIVE DISORDER Malaise COMPREHENSIVE METABOLIC PROFILE Routine 04/06/2008 12:00 AM EST FATIGUE PHYSICAL EXAM DEPRESSIVE DISORDER Malaise HEMOGRAM (CBC) WITH AUTO DIFF REFLEX MANUAL DIFF Routine 04/06/2008 12:00 AM EST FATIGUE PHYSICAL EXAM DEPRESSIVE DISORDER Malaise documented in this encounter Results * TSH (04/06/2008 12:00 AM EST) TSH ULTRASENSITIVE 1.65 0.40 - 4.50 uIU/ml [facility] Venous Draw 04/06/2008 04/06/2008 9: 17 AM EST us Santosh Uribe GENERAL LAB Final Result [facility] [address] [place] [address] * VITAMIN D 25-HYDROXY LC/MS/MS (04/06/2008 12:00 AM EST) [facility] VITAMIN D, 25-OH, TOTAL 46 20 - 100 NG/ML [facility] VITAMIN D, 25-OH, D3 46 NG/ML [facility] VITAMIN D, 25-OH, D2 <4 NG/ML [facility] Comment: 25-OHD3 INDICATES BOTH ENDOGENOUS PRODUCTION AND SUPPLEMENTATION. 25-OHD2 IS AN INDICATOR OF EXOGENOUS SOURCES SUCH DIET OR SUPPLEMENTATION. THERAPY IS BASED ON MEASUREMENT OF TOTAL 25-OHD, WITH LEVELS <20 NG/ML INDICATIVE OF VITAMIN D DEFICIENCY WHILE LEVELS BETWEEN 20 NG/ML AND 30 NG/ML SUGGEST INSUFFICIENCY. OPTIMAL LEVELS ARE >30 NG/ML. ? 04/06/2008 04/06/2008 9:1 7 AM EST Narrative [facility] - 04/16/2008 9:49 AM EST Testing performed at: [employer] [facility], [address] [place] [address] [address] [address], [place], [address], CLIA ID# [id number] Santosh Uribe GENERAL LAB Final Result [facility] [address] [facility] [place] [address] * (ABNORMAL) LIPID PROFILE (04/06/2008 12:00 AM EST) [facility] CHOLESTEROL 148 100 - 199 MG/DL [facility] TRIGLYCERIDES 79 30 - 149 MG/DL [facility] HDL 76 40 - 77 MG/DL [facility] LDL 56(L) 62 - 130 MG/DL [facility] CHOL/HDL RATIO 2 0 - 5 CALC [facility] Venous Draw 04/06/2008 04/06/2008 9: 17 AM EST Santosh Uribe GENERAL LAB Final Result [facility] [address] [place] [address] * (ABNORMAL) HEMOGRAM (CBC) W AUTO DIFF RFLX MAN DIFF (04/06/2008 12:00 AM EST) [facility] WBC 5.0 3.8 - 10.8 K/uL [facility] ABSOLUTE NEUTROPHILS INSTRUMENT 3.2 1.5 - 7.8 K/uL [facility] ABSOLUTE LYMPHOCYTES INSTRUMENT 1.4 0.9 - 3.9 K/uL [facility] ABSOLUTE MONOCYTES INSTRUMENT 0.3 0.2 - 1.0 K/uL [facility] ABSOLUTE EOSINOPHILS INSTRUMENT 0.0 0.0 - 0.6 K/uL [facility] ABSOLUTE BASOPHILS INSTRUMENT 0.0 0.0 - 0.2 K/uL [facility] NEUTROPHILS, % 64.6 48.0 - 75.0 % [facility] LYMPHOCYTES, % 28.5 17.0 - 40.0 % [facility] MONOCYTES % 5.3 0.0 - 14.0 % [facility] EOSINOPHILS, % 0.8 0.0 - 7.0 % [facility] BASOPHILS, % 0.9 0.0 - 3.0 % [facility] RBC 4.78 3.80 - 5.10 M/uL [facility] HGB 14.4 11.7 - 15.5 g/dL [facility] HCT 41.5 35.0 - 45.0 % [facility] MCV 86.7 80.0 - 100.0 fl [facility] MCH 30.2 27.0 - 33.0 pg [facility] MCHC 34.8 32.0 - 36.0 % [facility] RDW 10.9(L) 11.0 - 15.0 % [facility] PLTS 218 140 - 400 K/uL [facility] Venous Draw 04/06/2008 04/06/2008 9: 17 AM EST us Santosh Uribe GENERAL LAB Final Result [facility] [address] [place] [address] * COMPREHENSIVE METABOLIC PANEL (04/06/2008 12:00 AM EST) [facility] GLUCOSE 80 65 - 99 mg/dL [facility] BUN 15 7 - 25 MG/DL [facility] CREATININE 1.1 0.5 - 1.3 MG/DL [facility] BUN/CREATININE RATIO 14 6 - 25 RATIO [facility] SODIUM 146 135 - 148 MEQ/L [facility] POTASSIUM 4.1 3.5 - 5.3 MEQ/L [facility] CHLORIDE 107 98 - 110 MEQ/L [facility] CALCIUM 9.4 8.5 - 10.4 MG/DL [facility] TOTAL PROTEIN SERUM 7.5 6.0 - 8.3 G/DL [facility] ALBUMIN 4.2 3.5 - 4.9 G/DL [facility] GLOBULIN 3 2 - 4 G/DL [facility] A/G RATIO (PREL) 1.3 0.8 - 2.0 (CALC) [facility] BILIRUBIN TOTAL 0.4 0.2 - 1.5 MG/DL [facility] ALKALINE PHOSPHATASE 64 33 - 115 U/L [facility] SGOT (AST) 23 3 - 35 U/L [facility] CARBON DIOXIDE 26 21 - 33 MEQ/L [facility] SGPT (ALT) 11 3 - 40 U/L [facility] 04/06/2008 04/06/2008 9:1 7 AM EST us Santosh Uribe GENERAL LAB Final Result [facility] [address] [place] [address] documented in this encounter Visit Diagnoses Diagnosis Physical exam- Primary Unspecified general medical examination Fatigue Other malaise and fatigue Depressive disorder Depressive disorder, not elsewhere classified Immunization, influenza Need for prophylactic vaccination and inoculation against influenza Malaise Other malaise and fatigue documented in this encounter Discontinued Medications Medication Sig Discontinue Reason Start Date End Da te MICRONOR TABLET 0.35MG PO (NORETHINDRONE) 1 TAB PO QDay 03/30/2007 04/06/2008 documented as of this encounter Historical Medications * This list may reflect changes made after this encounter. OCELLA 3 MG-0.03 MG TAB (ETHINYL ESTRADIOL/DROSPIRE NONE) one tab po daily 28 0 04/06/2008 added in this encounter Orders IMMUNIZATIONS/INJECTION Count Last Ordered Date First Ordered Date IMMUNIZATION ADMIN (1) 1 04/06/2008 INFLUENZA VACCINE, SPLIT VIRUS, >/= 36 MOS 1 04/06/2008 PROCEDURES Count Last Ordered Date First Orde red Date EST. PAT. L2, OFFICE VISIT 1 04/06/2008 documented in this encounter Care Teams Land Development Project Manager Relationship Specialty Start Date End Date Santosh Uribe MD [address] [phone] PCP - General 01/15/06 documented as of this encounter
--- OUTSIDE RECORDS SUMMARY | 2024-05-29 16:21 | XMS_ITS | Encounter Summary ---
Author Organization [facility] Address [address] [place] [address] [place] [address] Care Team Providers Care Filter Press Tender Name Role Phone Santosh Celis Md Primary Care Provider [phone] Reason for Visit * Reason Onset Date Comments REQUEST TO SPEAK WITH NURSE RE: COLD SYMPTOMS Encounter Details Date Type Department Care Team (Late st Contact Info) Description 05/03/[address] [phone] Santosh Celis MD [facility] [address] [place] [phone] 0REQUEST TO SPEAK WITH NURSE RE: COLD SYMPTOMS Social History Tobacco Use Types Packs/Day Years [...] medications. Pt request apt. Pt transferred to brick siding applicator to schedule apt * Telephone Encounter - Juli Covarrubias - 05/03/2009 11:20 AM EST Pt experiencing head cold symptoms including sinus/mucus buildup; no fever & not much congestion (x2 weeks). OTC meds help but not getting rid of symptoms completely. Please call pt [phone] documented in this encounter Plan of Treatment Not on file documented as of this encounter Visit Diagnoses Not on filedocumented in this encounter Care Teams Filter Press Tender Relationship Specialty Start Date End Date Santosh Celis MD [facility] [address] [place] [phone] PCP - General 01/15/06 documented as of this encounter
--- OUTSIDE RECORDS SUMMARY | 2024-05-29 16:21 | XMS_ITS | Encounter Summary ---
Author Organization [facility] Address [address] [place] [address] [place] [address] Care Team Providers Care Magnaflux Operator Name Role Phone Santosh Celis Md Primary Care Provider Santosh Celis Md Unavailable Encounter Details Date Type Department Care Team (Late st Contact Info) Description 08/22/2013 Letter (Out) [facility] [address] [place] [phone] Santosh Celis MD [facility] [address] [place] [phone] Social History Tobacco Use Types Packs/Day Years [...] on filedocumented in this encounter Care Teams Magnaflux Operator Relationship Specialty Start Date End Date Santosh Celis MD [facility] [address] [place] [phone] PCP - General 01/15/06 Santosh Celis MD [facility] [address] [place] [phone] PCP - Payer 06/08/13 documented as of this encounter
--- OUTSIDE RECORDS SUMMARY | 2024-05-29 16:21 | XMS_ITS | Encounter Summary ---
Author Organization [facility] Address [address] [place] [address] [place] [address] Care Team Providers Care Founder And Chief Executive Officer Name Role Phone Santosh Celis Md Primary Care Provider [phone] Encounter Details Date Type Department Care Team (Late st Contact Info) Description 04/24/2010 Letter (Out) [facility] [address] [place] [phone] Santosh Celis MD [facility] [address] [place] [phone] Social History Tobacco Use Types Packs/Day Years [...] on filedocumented in this encounter Care Teams Founder And Chief Executive Officer Relationship Specialty Start Date End Date Santosh Celis MD [facility] [address] [place] [phone] PCP - General 01/15/06 documented as of this encounter
--- OUTSIDE RECORDS SUMMARY | 2024-05-29 16:21 | XMS_ITS | Encounter Summary ---
Author Organization [facility] Address [address] [place] [address] [place] [address] Care Team Providers Care Rug Frame Mounter Name Role Phone Santosh Celis Md Primary Care Provider [phone] Reason for Visit * Reason Onset Date Comments pertussis vaccine 09/01/2011 Encounter Details Date Type Department Care Team (Late st Contact Info) Description 09/01/[address] [phone] Santosh Celis MD [facility] [address] [place] [phone] 0pertussis vaccine Social History Tobacco Use Types Packs/Day Years [...] Telephone Encounter - Debbie Acevedo - 09/01/2011 9:49 AM EDT Patient given date of last tdap * Telephone Encounter - Tai Garcia - 09/01/2011 9:29 AM EDT Pt is calling to know if she had pertussis vaccine back in 2009. documented in this encounter Plan of Treatment Not on file documented as of this encounter Visit Diagnoses Not on filedocumented in this encounter Care Teams Rug Frame Mounter Relationship Specialty Start Date End Date Santosh Celis MD [facility] [address] [place] [phone] PCP - General 01/15/06 documented as of this encounter
--- OUTSIDE RECORDS SUMMARY | 2024-05-29 16:21 | XMS_ITS | Encounter Summary ---
Author Organization [facility] Address [address] [place] [address] [place] [address] Care Team Providers Care Product Picker Name Role Phone Santosh Celis Md Primary Care Provider [phone] Reason for Visit * Reason Onset Date Comments 1 tonsil swollen 09/17/2007 Encounter Details Date Type Department Care Team (Late st Contact Info) Description 09/17/[address] [phone] Santosh Celis MD [facility] [address] [place] [phone] 01 tonsil swollen Social History Tobacco Use Types Packs/Day Years [...] encounter Miscellaneous Notes * Telephone Encounter - 09/17/2007 11:59 PM EDT>> SY FOX ThuSep 17, 2007 4:13 PM Fátima Tomlin is a 26 yrs. female who complains of Sore throat/tonsil--denies chills/fever--suggested pt try advil/tylenol, salt water gargle in meanti me--Transferred pt to entry level receptionist to make appt for tomorrow. >> SY FOX ThuSep 17, 2007 3:59 PM LMOM< >> HUDSON SAUNDERS ThuSep 17, 2007 3:51 PM Celis / she's over her cold, but she still has a s/t, and a swollen tonsil. documented in this encounter Plan of Treatment Not on file documented as of this encounter Visit Diagnoses Not on filedocumented in this encounter Care Teams Product Picker Relationship Specialty Start Date End Date Santosh Celis MD [facility] [address] [place] [phone] PCP - General 01/15/06 documented as of this encounter
--- OUTSIDE RECORDS SUMMARY | 2024-05-29 16:21 | XMS_ITS | Encounter Summary ---
Author Organization [facility] Address [address] [place] [address] [place] [address] Care Team Providers Care Photographic Spotter Name Role Phone Santosh Celis Md Primary Care Provider [phone] Reason for Visit * Reason Comments contact lense exam Routine Eye Exam Encounter Details Date Type Department Care Team (Late st Contact Info) Description 10/07/2007 10:30 AM EDT Office Visit [facility] [address] [place] [phone] Cindi Richards OD [facility] [address] [place] [address] EYE / VISION EXAM (Primary Dx) Social History Tobacco Use Types [...] as of this encounter Progress Notes * 10/07/2007 10:30 AM TIMTCmanuel Tomlin examined on 10/07/2007 PERLA:[facility] [place] [facility] CC/RFV: routine eye exam for [...] Medications and allergies reviewed in Epic :Yes 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 RTC: 1 year Recorded by Cindi Richards,JON on 10/07/2007 documented in this encounter Plan of Treatment Not on file documented as of this encounter Procedures Procedure Name Priority Date/Time Associated Diagnosis Comments OTHER OPHTHAMOLOGICAL SERVICE/PROCEDURE Routine 10/07/2007 11:26 AM EDT EYE / VISION EXAM documented in this encounter Visit Diagnoses Diagnosis Eye/vision exam- Primary Examination of eyes and vision documented in this encounter Orders OTHER Count Last Ordered Date First Orde red Date CONTACT LENS PRESCRIPTION 1 10/07/2007 EYEGLASS PRESCRIPTION 1 10/07/2007 PROCEDURES Count Last Ordered Date First Orde red Date OTHER OPHTHAMOLOGICAL SERVICE/PROCEDURE 1 0 10/07/2007 documented in this encounter Care Teams Photographic Spotter Relationship Specialty Start Date End Date Santosh Celis MD [facility] [address] [place] [phone] PCP - General 01/15/06 documented as of this encounter
--- OUTSIDE RECORDS SUMMARY | 2024-05-29 16:21 | XMS_ITS | Encounter Summary ---
Author Organization [facility] Address [address] [place] [address] Care Team Providers Care Conference Specialist Name Role Phone Jorje iRvera MD Primary Care Provider [phone] Reason for Visit * Reason Comments Other Provider JORJE RIVERA MD ([facility] Doctor,Lab [id number]) [facility] ([id number]) Encounter Details Date Type Department Care Team (Late st Contact Info) Description 01/24/2006 Orders Only [facility] [address] [place] [phone] Jorje Rivera MD [address] [place] [phone] Social History Tobacco Use Types Packs/Day Years [...] of this encounter Procedures * Due to [place] state law, this organization might not be sharing negative HIV tests. Procedure Name Priority Date/Time Associated Diagnosis Comments TSH Routine 01/24/2006 8:59 AM EDT LIPID PROFILE Routine 01/24/2006 8:59 AM EDT BASIC METABOLIC PANEL Routine 01/24/2006 8:59 AM EDT HEMOGRAM (CBC) W AUTO DIFF RFLX MAN DIFF Routine 01/24/2006 8:59 AM EDT documented in this encounter Results * Due to [place] state law, this organization might not be sharing negative HIV tests. * TSH (01/24/2006 8:59 AM EDT) Thyroid Stimulating Hormone 1.92 0.30 - 5.50 uIU/ml 01/26/2006 6:07 AM EDT [facility] 01/24/2006 8:59 AM EDT 01/24/2006 8:59 AM EDT us Jorje Rivera MD LABORATORY Final Result [facility] * HEMOGRAM (CBC) W AUTO DIFF RFLX MAN DIFF (01/24/2006 8:59 AM EDT) Pathologist [facility] Leukocytes 5.2 3.8 - 10.8 K/uL 01/24/2006 12:03 PM EDT [facility] Neutrophils # 3.1 2.0 - 6.9 K/uL 01/24/2006 12:03 PM EDT [facility] Lymphocytes # 1.7 0.6 - 3.4 K/uL 01/24/2006 12:03 PM EDT [facility] Monocytes # 0.3 0.0 - 0.9 K/uL 01/24/2006 12:03 PM EDT [facility] Eosinophils # 0.0 0.0 - 0.7 K/uL 01/24/2006 12:03 PM EDT [facility] Basophils # 0.1 0.0 - 0.2 K/uL 01/24/2006 12:03 PM EDT [facility] Neutrophils % 60.4 37.0 - 80.0 % 01/24/2006 12:03 PM EDT [facility] Lymphocytes % 33.1 10.0 - 50.0 % 01/24/2006 12:03 PM EDT [facility] Monocytes/100 Leukocytes 5.0 0.0 - 12.0 % 01/24/2006 12:03 PM EDT [facility] Eosinophils/100 leukocytes 0.4 0.0 - 7.0 % 01/24/2006 12:03 PM EDT [facility] Basophils/100 leukocytes 1.1 0.0 - 2.5 % 01/24/2006 12:03 PM EDT [facility] Erythrocytes 4.64 3.80 - 5.10 M/uL 01/24/2006 12:03 PM EDT [facility] Hemoglobin 14.9 11.7 - 15.5 g/dL 01/24/2006 12:03 PM EDT [facility] Hematocrit 43.2 35.0 - 45.0 % 01/24/2006 12:03 PM EDT [facility] Mean Corpuscular Volume 92.9 80.0 - 100.0 fl 01/24/2006 12:03 PM EDT [facility] Mean Corpuscular Hemoglobin 32.1 27.0 - 33.0 pg 01/24/2006 12:03 PM EDT [facility] Mean Corpuscular Hemoglobin Conc 34.6 32.0 - 36.0 % 01/24/2006 12:03 PM EDT [facility] RDW 11.0 11.0 - 15.0 % 01/24/2006 12:03 PM EDT [facility] Platelets 209 140 - 400 K/uL 01/24/2006 12:03 PM EDT [facility] 01/24/2006 8:59 AM EDT 01/24/2006 8:59 AM EDT Jorje Rivera MD LABORATORY Final Result [facility] * (ABNORMAL) LIPID PROFILE (01/24/2006 8:59 AM EDT) [facility] Signature Cholesterol 151 100 - 199 MG/DL 01/26/2006 6:37 AM EDT [facility] Triglyceride 65 30 - 149 MG/DL 01/26/2006 6:37 AM EDT [facility] Cholesterol.in HDL 86(H) 40 - 77 MG/DL 01/26/2006 6:37 AM EDT [facility] LDL 52(L) 62 - 130 MG/DL 01/26/2006 6:37 AM EDT [facility] Comment: RISK CATEGORY: ??LDL-CHOLESTEROL GOAL CHD AND CHD RISK EQUIVALENTS: ??<100 MULTIPLE (2+) FACTORS: ??<130 ZERO TO ONE RISK FACTOR: ??<160 Chol/HDL Ratio 1.76 01/26/2006 6:37 AM EDT [facility] 01/24/2006 8:59 AM EDT 01/24/2006 8:59 AM EDT Narrative [facility] - 01/26/2006 6:37 AM EDT Testing performed at: [facility], [address] [place], [address], Outside Machinist Supervisor: LESLEE LAU M.D., CLIA ID# QCA us Jorje Rivera MD LABORATORY Final Result Performing Organization Address City/[facility] Co de Phone Number [facility] * BASIC METABOLIC PANEL (01/24/2006 8:59 AM EDT) [facility] Glucose 81 65 - 99 MG/DL 01/26/2006 6:37 AM EDT [facility] Urea Nitrogen Blood (BUN) 11 7 - 25 MG/DL 01/26/2006 6:37 AM EDT [facility] Creatinine 1.0 0.5 - 1.2 MG/DL 01/26/2006 6:37 AM EDT [facility] BUN/Creatinine Ratio 11 6 - 25 01/26/2006 6:37 AM EDT [facility] Sodium 141 135 - 146 MMOL/L 01/26/2006 6:37 AM EDT [facility] Potassium 4.3 3.5 - 5.3 MMOL/L 01/26/2006 6:37 AM EDT [facility] Chloride 105 98 - 110 MMOL/L 01/26/2006 6:37 AM EDT [facility] Carbon Dioxide 24 21 - 33 MMOL/L 01/26/2006 6:37 AM EDT [facility] Calcium 9.4 8.5 - 10.4 MG/DL 01/26/2006 6:37 AM EDT [facility] 01/24/2006 8:59 AM EDT 01/24/2006 8:59 AM EDT Narrative [facility] - 01/26/2006 6:37 AM EDT Testing performed at: [facility], [address] [place] [address], [address], Outside Machinist Supervisor: LESLEE LAU M.D., CLIA ID# QCA us Jorje Rivera MD LABORATORY Final Result [facility] documented in this encounter Visit Diagnoses Not on filedocumented in this encounter Care Teams Conference Specialist Relationship Specialty Start Date End Date Jorje Rivera MD [address] [place] [address] PCP - General 05/19/14 documented as of this encounter
--- OUTSIDE RECORDS SUMMARY | 2024-05-29 16:21 | XMS_ITS | Referral Summary ---
Author Organization [facility] Address [address] [place] [address] [place] [address] Care Team Providers Care Sheet Metal Worker Maintenance Name Role Phone Santosh Celis Md Primary Care Provider [phone] Santosh Celis Md Unavailable Allergies No known active allergies Medications OCELLA 3 MG-0.03 MG TAB (ETHINYL ESTRADIOL/DROSPI RENONE) one tab po daily 28 0 04/06/2008 Active Active Problems No known active problems Immunizations Name Administration Dates Next Due Influenza H1N1 Vaccine IM 05/08/2009 Influenza Vaccine (Unspecifi ed Formulation) 05/15/2010,03/01/2009,04/06/2008, 007 TD Vaccine (Adult) 12/31/1999 TdaP 05/08/2009 Social History Tobacco Use Types Packs/Day Years [...] 09/13/2013 1:00 PM EDT Plan of Treatment Not on file Procedures Procedure Name Priority Date/Time Associated Diagnosis Comments COMPREHENSIVE METABOLIC PROFILE W/GFR ([facility]) Routine 09/13/2013 1:35 PM EDT Physical exam, annual Family planning, BCP ( control pills) initial prescription LIPID PROFILE Routine 09/13/2013 1:35 PM EDT Physical exam, annual THIN PREP PAP W REFLX TO HPV Routine 03/24/2005 11:21 AM EDT from Last 3 Months or Most Recently Relevant to Health Maintenance Results * COMPREHENSIVE METABOLIC PROFILE W/GFR ([facility]) (09/13/2013 1:35 PM EDT) Pathologist [facility] GLUCOSE 83 65 - 99 mg/dl [facility] BUN 9 7 - 25 mg/dL [facility] CREATININE 0.86 0.50 - 1.16 mg/dL [facility] SODIUM 138 136 - 145 mmo/L [facility] POTASSIUM 3.5 3.5 - 5.3 mmol/L [facility] CHLORIDE 102 98 - 107 mmo/L [facility] CALCIUM 9.1 8.5 - 10.4 mg/dL [facility] TOTAL PROTEIN 7.2 6.0 - 8.3 g/dL [facility] ALBUMIN 4.6 3.5 - 5.2 g/dL [facility] GLOBULIN 3 2 - 4 G/DL [facility] BILIRUBIN TOTAL 0.32 0.20 - 1.50 mg/dL [facility] ALKALINE PHOSPHATASE 47 33 - 130 U/L [facility] SGOT (AST) 15 <38 U/L [facility] CARBON DIOXIDE 25 23 - 33 mmol/L [facility] SGPT (ALT) 9 <47 U/L [facility] EGFR 81 >60 ml/min [facility] Comment: For patients greater than 18 years of and and if the patient is , please multiply result by 1.210 Venous Draw 09/13/2013 1:35 PM EDT 09/13/2013 1:35 PM EDT Narrative [facility] - 09/13/2013 3:32 PM EDT not fasting Patient's primary care provider is: ??Santosh Celis Santosh Celis GENERAL LAB Final Result Performing Organization Address [facility] de Phone Number [address] [address] * LIPID PROFILE (09/13/2013 1:35 PM EDT) CHOLESTEROL 149 <200 mg/dL [facility] TRIGLYCERIDES 83 <150 mg/dL [facility] HDL 86 >40 mg/dL [facility] Comment: NCEP GUIDELINES Desireable >60 mg/dL Borderline 40-59 mg/dL ?? Undesirable <40 mg/dL LDL 47 <130 mg/dL [facility] CHOL/HDL RATIO 2 0 - 5 CALC [facility] Venous Draw 09/13/2013 1:35 PM EDT 09/13/2013 1:35 PM EDT Narrative [facility] - 09/13/2013 3:32 PM EDT not fasting Patient's primary care provider is: ??Santosh Celis Santosh Celis GENERAL LAB Final Result Performing Organization Address [facility] de Phone Number [address] [address] * THINPREP PAP W REFLX TO HPV (03/24/2005 11:21 AM EDT) THINPREP PAP TEST SEE TEXT [facility] Comment: ? THINPREP PAP [...] IS NOT PERFORMED. FOLLOW-UP CLINICALLY INDICATED. COMMENTS: ??#[id number] RESULT DATE: ??04/03/2005 TECHNOLOGIST: ??FA/DD GYNECOLOGICAL CYTOLOGY IS A SCREENING PROCEDURE SUBJECT TO BOTH FALSE NEGATIVE AND FALSE POSITIVE RESULTS. ??IT IS MOST RELIABLE WHEN A SATISFACTORY SAMPLE IS OBTAINED ON A REGULAR REPETITIVE BASIS. RESULTS MUST BE INTERPRETED IN THE CONTEXT OF HISTORIC AND CURRENT CLINICAL INFORMATION. 03/24/2005 11:2 1 AM EDT 03/25/2005 11:[address] [facility] - 04/04/2005 10:00 AM EST Testing performed at: [facility], [address] [place], [address], Monitor Worker: LESLEE LAU M.D., CLIA ID# [id number] Sharron Lisa [facility] Final Result [facility] [address] [place] [address] from Last 3 Months or Most Recently Relevant to Health Maintenance Care Teams Sheet Metal Worker Maintenance Relationship Specialty Start Date End Date Santosh Celis MD [facility] [address] [place] [phone] PCP - General 01/15/06 Santosh Celis MD [address] [phone] PCP - Payer 06/08/13
--- OUTSIDE RECORDS SUMMARY | 2024-05-29 16:21 | XMS_ITS | Encounter Summary ---
Author Organization [facility] Address [address] [id number] Care Team Providers Care Compliance Monitor Name Role Phone Jorje Rivera MD Primary Care Provider [phone] Reason for Visit * Reason Comments Other Provider JORJE RIVERA MD ([facility] Doctor,Internal Medicine [id number]) [facility] Adult Medicine ([id number]) Encounter Details Date Type Department Care Team (Late st Contact Info) Description 01/20/2006 Orders Only [facility] Adult Medicine [address] [place] [phone] Jorje Rivera MD [address] [place] [phone] Medications Social History Tobacco Use Types Packs/Day Years [...] on filedocumented in this encounter Care Teams Compliance Monitor Relationship Specialty Start Date End Date Jorje Rivera MD [address] [place] [address] PCP - General 05/19/14 documented as of this encounter
--- OUTSIDE RECORDS SUMMARY | 2024-05-29 16:21 | XMS_ITS | Encounter Summary ---
Author Organization [facility] Address [address] [place] [address] [place] [address] Care Team Providers Care Bulk Pallet Builder Name Role Phone Santosh Celis Md Primary Care Provider [phone] Encounter Details Date Type Department Care Team (Late st Contact Info) Description 10/07/2007 [facility] Services [address] [place] [phone] Cindi Richards OD [facility] [address] [place] [address] Social History Tobacco Use Types Packs/Day Years [...] of this encounter Progress Notes * 10/07/2007 3:16 PM EDT39 x 1 62 x 1 Paid by 10% [place] documented in this encounter Plan of Treatment Not on file documented as of this encounter Visit Diagnoses Not on filedocumented in this encounter Care Teams Bulk Pallet Builder Relationship Specialty Start Date End Date Santosh Celis MD [facility] [address] [facility] [place] [phone] PCP - General 01/15/06 documented as of this encounter
--- OUTSIDE RECORDS SUMMARY | 2024-05-29 16:21 | XMS_ITS | Encounter Summary ---
Author Organization [facility] Address [address] [place] [address] [place] [address] Care Team Providers Care Sweat Band Sewer Name Role Phone Santosh Celis Md Primary Care Provider Santosh Celis Md Unavailable Reason for Visit * Reason Comments Sore Throat x 3 days Fever x today Encounter Details Date Type Department Care Team (Latest Contact Info) Description 08/01/2013 3:30 PM EST Office Visit [facility] Adult Medicine [address] [place] [phone] Tom Gonzalez MD [facility] [address] [place] [phone] Acute streptococcal pharyngitis (Primary Dx) Social History Tobacco Use Types [...] Refills Last Filled Start Date End Date amoxicillin-clavul anate (AUGMENTIN) 201-125 mg Oral tablet Take 1 tablet every 12 hours for 10 days 20 tablet 0 08/01/2013 08/11/2013 documented in this encounter Progress Notes * Tom Gonzalez MD - 08/01/2013 3:39 PM EST Pt C/o [...] of this encounter Visit Diagnoses Diagnosis Acute streptococcal pharyngitis- Primary Streptococcal sore throat documented in this encounter Care Teams Sweat Band Sewer Relationship Specialty Start Date End Date Santosh Celis MD [facility] [address] [place] [phone] PCP - General 01/15/06 Santosh Celis MD [facility] [address] [place] [phone] PCP - Payer 06/08/13 documented as of this encounter
--- OUTSIDE RECORDS SUMMARY | 2024-05-29 16:21 | XMS_ITS | Encounter Summary ---
Author Organization [facility] Address [address] [place] [address] Care Team Providers Care Hotel General Manager Name Role Phone Jorje Celis MD Primary Care Provider [phone] Reason for Visit * Reason Comments Other 1 TONSIL SWOLLEN Provider JORJE CELIS MD ([facility] Doctor,Internal Medicine [id number]) [facility] Adult Medicine ([id number]) Encounter Details Date Type Department Care Team ([facility] Contact Info) Description 09/17/2007 Telephone [facility] Adult Medicine [address] [place] [phone] Jorje Celis MD [address] [place] [address] Other (1 TONSIL SWOLLEN); Provider (JORJE CELIS MD (Medical Doctor,Internal Medicine [id number]) [facility] Medicine ([id number])) Social History Tobacco Use Types Packs/Day Years Used Date Smoking Tobacco: Never Assessed Comments Unknown Sex and Gender Information Value Date Recorded Sex Assigned at Not on file Legal Sex Female 9:02 PM EST Gender Identity Not on file Sexual Orientation Not on file documented as of this encounter Miscellaneous Notes * Telephone Encounter - Jorje Celis - 09/17/2007 11:59 PM EDT >> SY FOX Fri Sep 17, 2007 4:13 PM Fátima Tomlin is a 26 yrs. female who complains of Sore throat/tonsil--denies chills/fever--suggested pt try advil/tylenol, salt water gargle in meantime--Transferred pt to weekend receptionist to make appt for tomorrow. >> SY FOX Fri Sep 17, 2007 3:59 PM LMOM< >> HUDSON SAUNDERS Fri Sep 17, 2007 3:51 PM Celis / she's over her cold, but she still has a s/t, and a swollen tonsil. documented in this encounter Plan of Treatment Not on file documented as of this encounter Visit Diagnoses Not on filedocumented in this encounter Care Teams Hotel General Manager Relationship Specialty Start Date End Date Jorje Celis MD [address] [place] [address] PCP - General 05/19/14 documented as of this encounter
--- OUTSIDE RECORDS SUMMARY | 2024-05-29 16:21 | XMS_ITS | Encounter Summary ---
Author Organization [facility] Address [address] [place] [address] Care Team Providers Care Kitchen Operator Name Role Phone Jorje Rivera MD Primary Care Provider [phone] Reason for Visit * Reason Comments Other Provider JORJE RIVERA MD ([facility] Doctor,Lab [id number]) [facility] Laboratory ([id number]) Encounter Details Date Type Department Care Team (Late st Contact Info) Description 09/18/2007 Orders Only [facility] Services [address] [place] [phone] Jorje Rivera MD [address] [place] [address] [phone] Social History Tobacco Use Types Packs/Day Years [...] of this encounter Procedures * Due to [place] Dualog law, this organization might not be sharing negative HIV tests. Procedure Name Priority Date/Time Associated Diagnosis Comments RAPID STREP LAB Routine 09/18/2007 10:02 AM EDT documented in this encounter Results * Due to [place] Dualog law, this organization might not be sharing negative HIV tests. * [facility] LAB (09/18/2007 10:02 AM EDT) Bacteria Culture (Throat) Negative for Gr A NEG FOR GR. A STREP 09/18/2007 12:03 PM EDT [facility] HISTORICAL LAB 09/18/2007 10:0 2 AM EDT 09/18/2007 10:02 AM EDT Jorje Rivera MD LABORATORY Final Result [facility] HISTORICAL LAB documented in this encounter Visit Diagnoses Diagnosis Acute pharyngitis documented in this encounter Care Teams Kitchen Operator Relationship Specialty Start Date End Date Jorje Rivera MD [address] [place] [address] PCP - General 05/19/14 documented as of this encounter
--- OUTSIDE RECORDS SUMMARY | 2024-05-29 16:21 | XMS_ITS | Encounter Summary ---
Author Organization [facility] Address [address] [place] [address] [place] [address] Care Team Providers Care Biofuels Plant Operations Engineer Name Role Phone Santosh Celis Md Primary Care Provider [phone] Reason for Visit * Reason Onset Date Comments RN Callback/Clinician 12/08/2011 Encounter Details Date Type Department Care Team (Late st Contact Info) Description 12/08/2011 Telephone [facility] Medicine [address] [place] [phone] Lia Noel RN RN CALLBACK/CLINICIAN Social History Tobacco Use Types Packs/Day Years [...] encounter Miscellaneous Notes * Telephone Encounter - Lia Jackson RN - 12/08/2011 11:12 AM EDT Spoke with pt. Advised her of plan. Pt verbalized understanding. * Telephone Encounter - Maia Aparicio - 12/08/2011 9:57 AM EDT Pt returning call * Telephone Encounter - Lia Jackson RN - 12/08/2011 9:49 AM EDT Left message on machine to call back. * Telephone Encounter - Tom Gonzalez MD - 12/08/2011 9:31 AM EDT Needs to be seen , plse book with one of the providers that can do I&D * Telephone Encounter - Lia Jackson RN - 12/08/2011 9:10 AM EDT Fátima Tomlin is a 30 yrs. female who complains of worsening sx of folliculitis. Pt report that lump has increased to the size of a quarter, is red and painful. Pt was seen on 12/05/11 and treated with Amox. Pt denies fever or any new sx. Dr. Gonzalez, please adivse. documented in this encounter Plan of Treatment Not on file documented as of this encounter Visit Diagnoses Not on filedocumented in this encounter Care Teams Biofuels Plant Operations Engineer Relationship Specialty Start Date End Date Santosh Celis MD [address] [phone] PCP - General 01/15/06 documented as of this encounter
--- OUTSIDE RECORDS SUMMARY | 2024-05-29 16:21 | XMS_ITS | Encounter Summary ---
Author Organization [facility] Address [address] [place] [address] [place] [address] Care Team Providers Care Technology Architect Name Role Phone Santosh Celis Md Primary Care Provider [phone] Santosh Celis Md Unavailable Encounter Details Date Type Department Care Team (Late st Contact Info) Description 07/31/2013 Letter (Out) [facility] Pediatrics [address] [place] [phone] Santosh Celis MD [facility] [address] [place] [phone] Social History Tobacco Use Types Packs/Day Years [...] on filedocumented in this encounter Care Teams Technology Architect Relationship Specialty Start Date End Date Santosh Celis MD [facility] [address] [place] [phone] PCP - General 01/15/06 Santosh Celis MD [facility] [address] [place] [phone] PCP - Payer 06/08/13 documented as of this encounter
--- OUTSIDE RECORDS SUMMARY | 2024-05-29 16:21 | XMS_ITS | Encounter Summary ---
Author Organization [facility] Address [address] [place] [address] [place] [address] Care Team Providers Care Certified Massage Therapist Name Role Phone Santosh Celis Md Primary Care Provider [phone] Santosh Celis Md Unavailable Encounter Details Date Type Department Care Team (Late st Contact Info) Description 08/01/2013 Telephone [facility] Medicine [address] [place] [phone] Tamie Bender RN Social History Tobacco Use Types Packs/Day Years [...] encounter Miscellaneous Notes * Telephone Encounter - Tamie Bender RN - 08/01/2013 2:52 PM EST áFtima Tomlin is a 32 yrs. female who [...] on filedocumented in this encounter Care Teams Certified Massage Therapist Relationship Specialty Start Date End Date Santosh Celis MD [facility] [address] [place] [phone] PCP - General 01/15/06 Santosh Celis MD [facility] [address] [phone] PCP - Payer 06/08/13 documented as of this encounter
--- OUTSIDE RECORDS SUMMARY | 2024-05-29 16:21 | XMS_ITS | Encounter Summary ---
Author Organization [facility] Address [address] [place] [address] [place] [address] Care Team Providers Care Voice Network Administrator Name Role Phone Santosh Celis Md Primary Care Provider [phone] Reason for Visit * Reason Comments Complete Physical Exam Encounter Details Date Type Department Care Team (Late st Contact Info) Description 05/15/2010 8:30 AM EST Office Visit [address] [phone] Santosh Celis MD [facility] [address] [place] [phone] Physical exam, annual (Primary Dx); Immunization, influenza Social History Tobacco Use Types Packs/Day [...] Progress Notes * Santosh Celis MD - 05/15/2010 8:57 AM EST 29 yo woman here for cpe. Feels well. No complaints. No regular exercise. 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 Past Medical History: TEAR OF PCL [...] Binh on 12/16/06. Never smoked. No alcohol. 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 Family Medical History: Hypertension Mother No [...] Extremities, peripheral pulses, and reflexes are normal. Breast/tool checker exam deferred to tool checker. Imp: Health maintenance Plan: No indication for lab testing Flu shot given Patient has appt scheduled with tool checker (Dr Jeff) Diet/exercise discussed Dental/vision/glaucoma exam up to date documented in this encounter Nursing Notes * 05/15/2010 8:30 AM EST >> LORENA LEE Wed May 15, 2010 9:32 AM ??? Patient screened for risk factors (egg allergy, recent illness, history of Guillain-Glen syndrome, prior serious reaction to flu vaccine) and possible reactions explained. ??? Denies any allergy to latex. ??? Consent obtained to administer flu vaccine vaccine(s). ??? flu vaccine vaccine(s) administered per patient/hotel services sales representative's request. ??? Printed vaccine immunization sheet(s) provided to patient. documented in this encounter Plan of Treatment Not on file documented as of this encounter Visit Diagnoses Diagnosis Physical exam, annual- Primary Routine general medical examination at a health care facility Immunization, influenza Need for prophylactic vaccination and inoculation against influenza documented in this encounter Orders IMMUNIZATIONS/INJECTION Count Last Ordered Date First Ordered Date INFLUENZA VACCINE, SPLIT VIRUS, >/= 36 MOS 1 05/15/2010 documented in this encounter Care Teams Voice Network Administrator Relationship Specialty Start Date End Date Santosh Celis MD [facility] [address] [place] [phone] PCP - General 01/15/06 documented as of this encounter
--- OUTSIDE RECORDS SUMMARY | 2024-05-29 16:21 | XMS_ITS | Encounter Summary ---
Author Organization [facility] Address [address] [place] [address] [place] [address] Care Team Providers Care Time Checker Name Role Phone Santosh Celis Md Primary Care Provider [phone] Encounter Details Date Type Department Care Team (Late st Contact Info) Description 07/25/2008 [facility] Services [address] [place] [phone] Cindi Richards OD [facility] [address] [place] [phone] Social History Tobacco Use Types Packs/Day Years [...] * Katheryn Oneal - 07/25/2008 8:52 PM ESTOrd cls ABB - 1 box ea eye. Charged 44x1 & 69x1 less 10% [place] disct to CC. Jennifer documented in this encounter Plan of Treatment Not on file documented as of this encounter Visit Diagnoses Not on filedocumented in this encounter Care Teams Time Checker Relationship Specialty Start Date End Date Santosh Celis MD [facility] [address] [facility] [phone] PCP - General 01/15/06 documented as of this encounter
--- NOTE | 2024-05-29 17:41 | ED.GENADUL_ITS ---
Discharge Plan Disposition Patient Disposition: Home Condition: Stable Discharge Details Clinical Impression: Lumbar radicular pain Primary Care Provider: Unknown,Unknown ED Provider: Percy Mcqueen Home Meds and New Rx's Prescriptions: No Action No Known Home Meds Discharge Instructions Instructions: Diazepam, Herniated Disc Exercises, Back Stretches on Floor, Radiculopathy of the neck and back (including sciatica), Low Back Pain ED Additional Instructions: You were seen in the emergency department for your severe lumbar back pain with radiculopathy. You were given 200 mcg of fentanyl by EMS, we added 1 g of oral Tylenol, 10 mg of IV dexamethasone-a long-acting steroid, you had already taken 440 mg of Aleve which is advised. We also added topical Voltaren gel to the area of pain as well as an IV dose of a benzodiazepine called Ativan for skeletal muscle relaxation. Have sent you home with 4 tablets of Valium to use sparingly over the next 4 days for skeletal muscle relaxation, please continue taking 1000 mg of Tylenol every 6 hours, 440 mg of Aleve twice per day. Use a lidocaine patch on the area for 12 hours each day, use the topical Voltaren gel 2-3 times per day. Perform low back exercises, follow-up with physical therapy, plus or minus chiropractor or professional massage. Please return to the emergency department for any urinary retention, bowel incontinence, numbness to the genitals, severe increase in back pain fever. Stand Alone Forms: Physical Therapy Referral Discharge Data Discharge Date/Time-TO BE ENTERED AT DEPARTURE: 05/29/24 19:40 HPI General Date/Time Provider Initiated Documentation: 05/29/24 15:41 . HPI Narrative: 43 year-old female presents to ED today by EMS with a chief complaint of low back pain- debilitating, no trauma at onset with onset yesterday, but much worse today- to where she has had trouble even moving. Quality described as sharp shooting spasmodic back pain, no radiation to numbness/tingling, inability to move legs, urinary retention, bowel incontinence, numbness to genitals, fever, history of IVDU. Severity is described as 03/10. Palliating factors include 200mcg given by EMS en route. Provoking factors include nothing specific. Patient not anticoagulated. Related Data Home Medications ?Medication ?Instructions ?Recorded ?Confirmed Unknown [No Known Home Meds] 05/29/24 05/29/24 Allergies Allergy/AdvReac Type Severity Reaction Status Date / Time No Known Allergies Allergy Unverified 05/29/24 15:37 General Stated Complaint: Nk/Back Pain PAYTON: 3 Review of Systems All systems reviewed & are unremarkable except as noted in HPI and below Exam Narrative Exam Narrative: GENERAL APPEARANCE: Well-nourished, non-toxic, awake and alert, atraumatic, no acute distress. SKIN: Warm, pink, dry, intact, without rashes/lesions/ulcerations. HEAD: Normocephalic, atraumatic, normal hair distribution for gender/age. EYES: Normal conjunctiva, no exudates on lids/lashes. ENT: Nares patent, no circumoral cyanosis, no facial swelling NECK: Supple, trachea midline, painless cervical ROM. LUNGS/CHEST: Non-labored respirations, normal A/P diameter, symmetrical expansion, no chest wall deformity HEART (CV/PV): No peripheral edema, no JVD. ABDOMEN: Soft, non-distended, no guarding. MSK: Normal ROM, no swelling/deformity to bilateral UEs or LEs, moving all extremities without weakness, no cyanosis, spine midline without tenderness, normal curvature, neurovascular intact in bilateral lower extremities, no midline cervical vertebral tenderness/crepitus or step-offs, has right paraspinal muscle palpable tension, no saddle anesthesia NEURO: Mental Status AAOx4 - alert to person, place, time, events No facial droop, no forehead involvement. Motor: No focal weakness - strength 5/5 in bilateral UEs and LEs, proximal and distal, symmetric. Sensory: sensation intact to light touch globally. Gait NT, was able to ambulate out of the ED. PSYCH: euthymic, cooperative, pleasant, appropriate speech Course Vital Signs Vital signs: Vital Signs Temperature 37.3 C 05/29/24 15:30 Pulse 77 05/29/24 15:30 Respiratory Rate 18 05/29/24 15:30 Blood Pressure 120/59 L 05/29/24 15:30 Pulse Oximetry 94 05/29/24 15:30 Temperature 37.3 C 05/29/24 15:30 Temperature Source Tympanic 05/29/24 15:30 Pulse 90 05/29/24 17:15 Respiratory Rate 18 05/29/24 15:30 Blood Pressure 115/79 05/29/24 17:15 Blood Pressure Mean 90 05/29/24 17:15 Blood Pressure Position Sitting 05/29/24 15:30 Pulse Oximetry 95 05/29/24 17:20 Oxygen Delivery Method Room Air 05/29/24 15:30 Oxygen Flow Rate 0 05/29/24 15:30 Pain Level 6 05/29/24 16:17 Medical Decision Making This dictation utilizes [id number] dictation software and may contain unedited grammatical errors. 43 year-old female presents to ED today by EMS with a chief complaint of low back pain- debilitating, no trauma at onset with onset yesterday, but much worse today- to where she has had trouble even moving. Quality described as sharp shooting spasmodic back pain, no radiation to numbness/tingling, inability to move legs, urinary retention, bowel incontinence, numbness to genitals, fever, history of IVDU. Severity is described as 10/10. Palliating factors include 200mcg given by EMS en route. Provoking factors include nothing specific. Patients' medical history: Negative, otherwise healthy. Family and social history: Noncontributory. Pertinent exam findings / vital signs include neurovascular intact in bilateral lower extremities, no midline cervical vertebral tenderness/crepitus or step- offs, has right paraspinal muscle palpable tension, no saddle anesthesia. Differential / pathologies of concern include lumbar back sprain, disc herniation, not cauda equina, not trauma, not vertebral fracture. Diagnostic studies of: -None. Interventions of: -1 g p.o. Tylenol, 10 mg p.o. cyclobenzaprine, 10 mg IV push of dexamethasone, topical diclofenac, 1 mg IV push of lorazepam-with significant relief. #4 tab 2mg valium to go. ED Course/Assessment/Plan: 43-year-old female has a likely lumbar back spasm due to minor disc protrusion or herniation, I do not suspect any cauda equina, has no risk factors for spinal epidural abscess, has control of both lower extremities and is neurovascularly intact, has palpable muscle tension in the right paraspinal lumbar muscles, counseled on aggressive regimen for muscle spasm and following up with physical therapy plus or minus chiropractor, professional massage therapy, stress strict return criteria for any urinary retention, bowel incontinence, neurovascular compromise to lower extremities. Findings not consistent with cauda equina, spinal epidural abscess, neurovascular compromise of lower extremities. Disposition of Lumbar Radicular Pain. Patient verbalized understanding of the plan and return to ED criteria and engaged in shared decision making. Medical Records Medical records reviewed: Yes I reviewed the patient's medical records. Quality:SDOH Health Related Social Needs: No Data to Display PFSH All Active Problems (Updated 05/29/24 @ 19:06 by MARYJANE Mallory) Lumbar radicular pain (Acute) Social History Smoking/Tobacco Use Status: Never Smoking risk assessment performed?: Yes Alcohol Intake: never Drug use: Never Substance use type: does not use Do you feel safe at home: Yes Do you feel safe in your relationship?: Yes
[2024-05-29] MEDS: LORazepam 2 MG/ML VIAL 1 MG IVP (17:47)
[2024-05-29] MEDS: diazePAM 2 MG TAB 8 MG PO (19:23)
== END 2024-05-29 19:40 | disposition home or self-care (01) ==
PROVIDERS: Emergency Provider Physician Assistant
DX: M54.16 Radiculopathy, lumbar region (principal)
CPT/HCPCS: 96374; 96375; 99284; 99283; J1100; J2060